=== PATIENT | female | born 1995 | race Asian ===

== ENCOUNTER 2018-09-04 14:45 | Outpatient (REF) | payer MEDICAID, SELFPAY | END 2018-09-04 15:05 | LOC: LBN 14:45 | PROVIDERS: PCP Family Medicine; Visit Provider Obstetrics & Gynecology | DX: R30.0 Dysuria (principal) | CPT/HCPCS: 87077; 87086 ==

== ENCOUNTER 2018-09-22 09:21 | Outpatient (REF) | payer MEDICAID, SELFPAY ==
--- NOTE | 2018-09-22 08:00 | PAPFT_PTH ---
PATIENT: Camille Arroyo LOC: [facility] U#:[id number] AGE/SX: 23/F ROOM: RE09/22/[address]: Sadia Warner : 1995 BED: DIS: 09/22/2018 SPEC #: [id number] RECD: 09/22/18 17:48 STATUS: BRANNON REQ #: [id number] COOPER: 09/22/18 08:[address]: Sadia Warner [facility] Cytology RECD BY: Deyanira Lindo Tissues: 1 - CX/ENDOCX FOR PAP SMEARS Procedures: PAP THIN PREP/UVM Screening Comments: [id number] (CHLAMYDIA/GC) (UNSATISFACTORY FOR EVALUATION)
[2018-09-23 18:03] LABS: Tissue Transglutaminase Ab IgA <1.2 U/mL; Tissue Transglutaminase Ab IgG 2.3 U/mL
[2018-09-25 13:57] LABS: Chlamydia Result Negative; GC Result Negative; Specimen Description SEE COMMENTS
== END 2018-09-22 09:41 ==
LOC: NCHCN 09:21
PROVIDERS: PCP Family Medicine; Visit Provider Family Medicine
DX: R11.0 Nausea (principal); Z11.3 Encounter for screening for infections with a predominantly sexual mode of transmission; Z12.4 Encounter for screening for malignant neoplasm of cervix; Z00.00 Encounter for general adult medical examination without abnormal findings
CPT/HCPCS: 87491; 87591; 88142; 83516

== ENCOUNTER 2018-10-17 14:50 | Outpatient (REF) | payer MEDICAID, SELFPAY ==
[2018-10-17 18:44] LABS: Bilirubin Negative (Negative); Blood Negative (Negative); Clarity Clear; Glucose Negative (Negative); Ketones Negative (Negative); Leukocyte Esterase Negative (Negative); Nitrite Negative (Negative); Specific Gravity 1.015 (1.005-1.025); Urobilinogen 0.2 EU/dL (Up TO 0.2)
== END 2018-10-17 15:10 ==
LOC: NCHCN 14:50
PROVIDERS: PCP Family Medicine; Visit Provider Nurse Practitioner Family
DX: R30.0 Dysuria (principal)
CPT/HCPCS: 81003; 87086

== ENCOUNTER 2018-12-13 16:03 | Outpatient (REF) | payer MEDICAID, SELFPAY ==
[2018-12-15 13:45] LABS: Chlamydia Result Negative; GC Result Negative; Specimen Description URINE
== END 2018-12-13 16:23 ==
LOC: LBN 16:03
PROVIDERS: PCP Family Medicine; Visit Provider Obstetrics & Gynecology Gynecology
DX: R10.2 Pelvic and perineal pain (principal)
CPT/HCPCS: 87491; 87591

== ENCOUNTER 2019-02-06 11:30 | Outpatient (CLI) | payer MEDICAID, SELFPAY ==
[2019-02-07 10:59] LABS: HIV-1/2 Ag & Ab Screen Negative (NEGAT)
[2019-02-07 12:14] LABS: Syphilis Serology (RPR) Negative (Negative)
== END 2019-02-06 11:50 ==
PROVIDERS: PCP Family Medicine; Visit Provider Obstetrics & Gynecology Gynecology
DX: Z11.3 Encounter for screening for infections with a predominantly sexual mode of transmission (principal); Z11.4 Encounter for screening for human immunodeficiency virus [HIV]
CPT/HCPCS: 36415; 87389; 87491; 87591; 86592

== ENCOUNTER 2019-03-05 01:47 | Outpatient (CLI) | payer MEDICAID, SELFPAY ==
--- NOTE | 2019-03-05 09:45 | DI.US_ITS ---
SYMPTOM/DIAGNOSIS: LLQ PAIN, R10.32 PELVIC ULTRASOUND: Transabdominal and transvaginal examination was performed. The uterus measures 6.3 x 3.5 x 5.1 cm. The uterus is retroverted. No myometrial mass is seen. The endometrial stripe is within normal limits at 0.4 cm. There is an intrauterine device which lies within the lower uterine segment and cervical region. The ovaries are normal in size. There is normal blood flow to the ovaries. No evidence of torsion is present. There are follicular cysts seen bilaterally. There is a small amount of free fluid in the pelvis. The kidneys show no evidence of hydronephrosis. IMPRESSION: Intrauterine device appears low lying. It lies within the lower uterine segment and cervical region of the canal.
== END 2019-03-05 02:07 ==
PROVIDERS: PCP Family Medicine; Visit Provider Obstetrics & Gynecology Gynecology
DX: R10.32 Left lower quadrant pain (principal); Z97.5 Presence of (intrauterine) contraceptive device
CPT/HCPCS: 76830; 76856

== ENCOUNTER 2019-04-28 11:32 | Emergency (ER) | payer MEDICAID, SELFPAY ==
[2019-04-28 11:35] VITALS: BP 105/52; PULSE 75; RESP 16; TEMP 36.6; O2SAT 100
--- NOTE | 2019-04-28 13:05 | W.ED.GENAD ---
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 Clinical Impression: IUD complication, Pelvic pain Primary Care Provider: Sadia Warner ED Provider: Marlene Bautista Home Meds and New Rx's Prescriptions: New ondansetron HCl [Zofran] 4 mg tablet 4 mg PO Q6H PRN (Reason: nausea and vomiting) Qty: 6 RF: 0 Continued ibuprofen 600 mg tablet 600 mg PO QID PRN (Reason: pain) Qty: 45 RF: 1 Josefina 14 mcg/24 hour (3 years) intrauterine device 1 insert IY ONCE Qty: 1 RF: 0 epinephrine 0.3 MG/SYR auto-injector 0.3 mg IJ PRN PRNRF: 0 acetaminophen [Tylenol] 325 MG tablet 650 mg PO PRN PRNRF: 0 ibuprofen [Advil Liqui-Gel] 200 MG capsule 400 mg PO PRN PRNRF: 0 Discharge Instructions Instructions: Intrauterine Device (GEN), Pelvic Pain in Women (ED) Additional Instructions: Alternate Tylenol and Motrin as needed and directed for pain. Take the nausea medicine as needed and directed for nausea or vomiting. Call women's wellness on Tuesday to schedule a follow-up appointment for reevaluation. Return to the emergency department if you develop any worsening or new concerning symptoms such as fever or increasing pain. Discharge Data Discharge Date/Time-TO BE ENTERED AT DEPARTURE: 04/28/19 15:46 Discharge Physician: Marlene Bautista Medical Decision Making 23-year-old female with no significant past mental history who had an IUD removed and a new one replaced yesterday who presents with sharp abdominal pain and nausea. She started her menses yesterday. Her abdomen is soft and nontender. Speculum exam reveals IUD strings within cervix. She has some minimal bleeding consistent with her menses. There appears to be minimal ecchymosis to cervix at 3:00. No adnexal mass or tenderness. Urine preg negative. Urinalysis negative. Case discussed with OB on-call Dr. Liang and states that patient's pelvic pain could be expected likely due to the tenaculum instrument used during the IUD removal which would be consistent with the ecchymosis noted to cervix. Agrees with plan to continue Motrin every 6 hours, pelvic rest and to follow-up with OB on Tuesday. As patient had normal vital signs, appeared nontoxic, and soft nontender abdomen, did not see an indication for labs or imaging at this time and she was agreeable peer Patient admitted to some lightheadedness but states she had not eaten all day. She was given crackers, fluids, Zofran and Motrin felt much better and was requesting to go home. Patient requested a work note for this evening. She was advised to return here if she develops any fevers, worsening pain. Medical Records Medical records reviewed: Yes I reviewed the patient's medical records. Lab Data Lab results reviewed: Yes I reviewed the patient's lab results. Laboratory Tests Range/Units 04/28/19 13:17 Urine Color (Yellow) Yellow Urine Clarity (Clear) Clear Urine pH (5-8) 7.0 Ur Specific [place] (1.005-1.025) 1.020 Urine Protein (Negative) mg/dL Negative Urine Ketones (Negative) mg/dL Negative Urine Blood (Negative) Negative Urine Nitrite (Negative) Negative Urine Bilirubin (Negative) Negative Urine Urobilinogen (Up TO 0.2) EU/dL 0.2 Ur Leukocyte Esterase (Negative) Negative Urine Glucose (Negative) mg/dL Negative HPI General Mode of arrival: ambulatory. Date/Time Provider Initiated Documentation: 04/28/19 11:41. Limitations to Documentation: no limitations. Information obtained by: patient. HPI Narrative: Patient is a 23-year-old female who presents with lower pelvic pain, nausea and lightheadedness since yesterday since her new IUD was placed. She states she had a routine ultrasound done a few months ago for ovarian pain and it was noted that her IUD was out of place. She states women's wellness remove this IUD yesterday and replaced a new one. She states since then she has had sharp lower pelvic pain. She states she also is currently on her menses and that can sometimes cause nausea lightheadedness but not this degree of pain. She denies any fever or urinary symptoms. Related Data Home Medications Medication Instructions Recorded Confirmed epinephrine 0.3 mg IJ PRN PRN 11/30/13 04/28/19 acetaminophen [Tylenol] 650 mg PO PRN PRN 10/25/16 04/28/19 ibuprofen [Advil Liqui-Gel] 400 mg PO PRN PRN 10/25/16 04/28/19 ibuprofen 600 mg tablet 600 mg PO QID PRN #45 tab 10/18/18 04/28/19 levonorgestrel 14 mcg/24 hrs (3 1 insert IY ONCE #1 each 10/21/18 04/28/19 yrs) 13.5 mg intrauterine device ondansetron HCl [Zofran] 4 mg PO Q6H PRN #6 tab 04/28/19 Previous Rx's Medication Instructions Recorded ibuprofen 600 mg tablet 600 mg PO QID PRN #45 tab 10/18/18 levonorgestrel 14 mcg/24 hrs (3 1 insert IY ONCE #1 each 10/21/18 yrs) 13.5 mg intrauterine device ondansetron HCl [Zofran] 4 mg PO Q6H PRN #6 tab 04/28/19 Allergies Allergy/AdvReac Type Severity Reaction Status Date / Time venom-honey bee Allergy Intermediate Swelling/Ed Unverified 04/28/19 11:39 [bee venom (honey bee)] anastacio perfume Allergy Mild Unverified 04/28/19 11:39 Penicillins AdvReac Intermediate GI Unverified 04/28/19 11:39 upset/Headache DUST Allergy Mild Uncoded 04/28/19 11:39 FOOD DYE Allergy Mild Uncoded 04/28/19 11:39 General 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 ALEC: 3 Review of Systems Review of Systems All systems reviewed & are unremarkable except as noted in HPI and below Constitutional Reports as per HPI, Denies chills and Denies fever(s) Eyes Denies blurry vision ENT Denies dizziness, Denies sore throat and Denies throat swelling Cardiovascular Denies chest pain and Denies dyspnea Respiratory Denies cough and Denies dyspnea Gastrointestinal Reports abdominal pain, Denies diarrhea, Reports nausea and Denies vomiting Genitourinary Denies hematuria, Denies dysuria and Reports pelvic pain Musculoskeletal Denies back pain and Denies numbness Integumentary/Breasts Denies lesions and Denies rash Neurologic Denies dizziness, Denies focal weakness and Denies numbness Allergic/Immunologic Denies throat swelling PFSH Medical History Chronic bladder pain (Chronic) IUD (intrauterine device) in place (Chronic) Pelvic pain (Chronic) Social History (Reviewed 04/28/19 @ 15:39 by ABELARDO Treviño Smoking/Tobacco Use Status: Never Alcohol Intake: never Drug use: Occasionally Substance use type: marijuana Adopted: Yes Household members: family and other Details: Currently between jobs living with her family. Mother is named Lenora. 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 Sexually active: Yes Do you feel safe at home: Yes Do you feel safe in your relationship?: Yes Female Reproductive History Menstrual control method: progestin IUCD (Josefina inserted Lot #[id number]) Exam Const General: cooperative, healthy appearing and no acute distress HENMT Head: normal to inspection Face and sinus: normal facial exam Eyes General: appearance normal, both eyes and all related structures Pupils: PERRL EOM: EOM intact bilaterally Neck Neck: normal visual inspection and No submandibular swelling Lymphatic: no lymphadenopathy noted Chest Chest: normal inspection of the chest and no tenderness Resp Effort & Inspection: normal respiratory effort and able to speak in complete sentences Auscultation: clear to auscultation bilaterally Cardio Rate: regular rate Rhythm: regular rhythm GI Inspection: normal to inspection Palpation: soft, not firm, not rigid and nontender Auscultation: normal bowel sounds Skin General skin exam: no rashes or lesions noted Neuro General: alert, awake and oriented x3 Cognition: normal cognition Speech: speech normal Motor: muscle tone normal throughout Sensory Exam: no sensory deficits noted Extrem General: normal to inspection, full ROM, normal capillary refill, no calf tenderness bilaterally and no edema Psych Appearance: grossly normal Mental Status: mental status grossly normal Speech and Movement: speech and movement normal Affect: normal affect Course Vital Signs Temperature 97.9 F 04/28/19 11:35 Pulse 756 H 04/28/19 11:35 Respiratory Rate 16 04/28/19 11:35 Blood Pressure 105/52 L 04/28/19 11:35 Pulse Oximetry 100 04/28/19 11:35 Temperature 97.9 F 04/28/19 11:35 Temperature Source Skin 04/28/19 11:35 Pulse 756 H 04/28/19 11:35 Respiratory Rate 16 04/28/19 11:35 Respiratory Effort Non-Labored 04/28/19 11:37 Blood Pressure 105/52 L 04/28/19 11:35 Pulse Oximetry 100 04/28/19 11:35 Pain Level 9 04/28/19 11:40
[2019-04-28 13:26] LABS: Bilirubin Negative (Negative); Blood Negative (Negative); Clarity Clear (Clear); Glucose Negative (Negative); Ketones Negative (Negative); Leukocyte Esterase Negative (Negative); Nitrite Negative (Negative); Urobilinogen 0.2 EU/dL (Up TO 0.2)
--- NOTE | 2019-04-28 14:18 | NUR.NOTE ---
Nursing Note: pt tolerated pelvic exam well. gluten free meal tray ordered for patient.
[2019-04-28] MEDS: Ondansetron O.D.T. 4 MG TABEF PO (14:40)
[2019-04-28] MEDS: Ibuprofen 600 MG TAB PO (14:40)
[2019-04-28 15:10] VITALS: BP 107/62; PULSE 71; RESP 16; O2SAT 100
--- NOTE | 2019-04-28 15:11 | NUR.NOTE ---
Nursing Note: pt able to eat and drink without difficulty. tolerating PO intake well
== END 2019-04-28 15:46 | disposition home or self-care (01) ==
PROVIDERS: Emergency Provider Physician Assistant; PCP Family Medicine
DX: R10.2 Pelvic and perineal pain (principal); R11.0 Nausea; T83.84XA Pain due to genitourinary prosthetic devices, implants and grafts, initial encounter; Y84.8 Other medical procedures as the cause of abnormal reaction of the patient, or of later complication, without mention of misadventure at the time of the procedure
CPT/HCPCS: 81025; 99284; 81003

== ENCOUNTER 2019-05-04 10:48 | Outpatient (REF) | payer MEDICAID, SELFPAY ==
--- NOTE | 2019-05-04 09:50 | PAPFT_PTH ---
PATIENT: Camille Arroyo LOC: [facility] U#:[id number] AGE/SX: 23/F ROOM: RE05/04/[address]: Kelli Martins NP : 1995 BED: DIS: 05/04/2019 SPEC #: [id number] RECD: 05/04/19 12:51 STATUS: BRANNON HUGHES #: [id number] COOPER: 05/04/19 09:[address]: Kelli Martins NP DEPT: [facility] Cytology RECD BY: Deyanira Lindo ENTERED: 05/04/19 12:51 SP TYPE: PAPFT JOANIE DR: Sadia Warner Tissues: 1 - CX/ENDOCX FOR PAP SMEARS Procedures: PAP THIN PREP/UVM Screening Comments: [id number]
== END 2019-05-04 11:08 ==
LOC: LBN 10:48
PROVIDERS: PCP Family Medicine; Visit Provider Nurse Practitioner Women's Health
DX: Z12.4 Encounter for screening for malignant neoplasm of cervix (principal)
CPT/HCPCS: 88142

== ENCOUNTER 2019-12-10 08:59 | Outpatient (CLI) | payer BC, SELFPAY ==
[2019-12-10 12:16] LABS: HCG Quant, Pregnancy 1846 mIU/mL (1-3)
[2019-12-11 12:21] LABS: Albumin 62.2 % (55.8-66.1); Total Protein 7.4 g/dL (6.3-8.2)
== END 2019-12-10 09:19 ==
PROVIDERS: PCP Family Medicine; Visit Provider Obstetrics & Gynecology Gynecology
DX: N91.2 Amenorrhea, unspecified (principal)
CPT/HCPCS: 36415; 84165; 84702

== ENCOUNTER 2020-01-07 13:20 | Outpatient (REF) | payer BC, SELFPAY ==
[2020-01-07 14:23] LABS: *AMPHETAMINES SCREEN URINE Negative (Negative); *BARBITURATES SCREEN URINE Negative (Negative); *BENZODIAZEPINES SCREEN URINE Negative (Negative); Cannabinoids THC Negative (Negative); Cocaine Screen,Urine Negative (Negative); METHADONE URINE SCREEN Negative (Negative); OPIATES URINE SCREEN Negative (Negative)
[2020-01-07 14:27] LABS: Tricyclic Antidepressants Negative (Negative)
[2020-01-09 14:57] LABS: Chlamydia Result Negative (Negative); GC Result Negative (Negative)
[2020-01-12 23:17] LABS: Buprenorphine Negative; Norbuprenorphine Negative
== END 2020-01-07 13:40 ==
LOC: LBN 13:20
PROVIDERS: PCP Family Medicine; Visit Provider Advanced Practice Midwife
DX: Z34.91 Encounter for supervision of normal pregnancy, unspecified, first trimester (principal); Z11.3 Encounter for screening for infections with a predominantly sexual mode of transmission
CPT/HCPCS: 80307; 87491; 87591; 87086

== ENCOUNTER 2020-01-18 02:06 | Outpatient (CLI) | payer BC, SELFPAY ==
[2020-01-18 11:38] LABS: Abs Immature Grans 0.13 k/cumm (0.0-0.09); Absolute Eosinophil Count 0.29 k/cumm (0.0-0.7); Absolute Lymphocyte Count 2.05 k/cumm (1.2-3.4); Absolute Monocyte Count 0.86 k/cumm (0.11-0.7); Absolute Neutrophil Count 9.44 k/cumm (1.2-6.7); Basophils % 0.2; Eosinophils % 2.3; HGB 11.8 g/dL (12.0-15.5); Mean Corp. HGB Concentration 31.9 g/dL (32.0-36.0); Mean Corpuscular Hemoglobin 21.9 pg (27.0-33.0); Mean Corpuscular Volume 68.5 fL (80-95); Mean Platelet Volume 10.1 fL (8.0-11.0); Monocytes % 6.7; Neutrophils % 73.8; Platelet Count 441 x1000/uL (130-400); RBC Distribution Width 15.6 % (11.7-14.6); White Blood Cell Count 12.79 k/cumm (4.4-10.8)
[2020-01-18 11:40] LABS: Absolute Basophil Count 0.03 k/cumm (0.0-0.2)
[2020-01-18 11:51] LABS: Anisocytosis 1+; Diff Comment RBC Morph Reviewed
[2020-01-18 11:52] LABS: Microcytosis 2+; Poikilocytes 1+; Polychromasia Present
[2020-01-18 12:58] LABS: TSH (W/Ref FT4) 0.36 uIU/mL (0.36-3.74)
[2020-01-19 13:49] LABS: Syphilis Total Ab w/Reflex Nonreactive (Nonreactive)
[2020-01-21 10:59] LABS: Hepatitis B Surface Ag Negative (Negative)
[2020-01-21 11:01] LABS: HIV-1/2 Ag & Ab Screen Negative (Negative)
[2020-01-21 11:21] LABS: Hepatitis C Ab w Rflx HCV PCR Negative (Negative)
[2020-01-21 15:39] LABS: Hemoglobinopathy Interpretat (See Note)
[2020-01-22 13:35] LABS: Rubella IgG Ab (UVM) Positive (See Note); Varicella IgG Antibody Positive (See Note)
== END 2020-01-18 02:26 ==
PROVIDERS: Obstetrics & Gynecology Gynecology; PCP Family Medicine; Visit Provider Advanced Practice Midwife
DX: Z34.91 Encounter for supervision of normal pregnancy, unspecified, first trimester (principal); Z11.4 Encounter for screening for human immunodeficiency virus [HIV]; Z11.59 Encounter for screening for other viral diseases; Z01.84 Encounter for antibody response examination
CPT/HCPCS: 36415; 86787; 86803; 86850; 86900; 86901; 87340; 87389; 83020; 84443; 85025; 86762; 86780

== ENCOUNTER 2020-03-10 01:21 | Outpatient (CLI) | payer BC, SELFPAY ==
--- NOTE | 2020-03-10 07:00 | DI.US_ITS ---
EXAM: US OB 2-3 TRIMESTER W MOD CLINICAL HISTORY: 18 wk anatomy survey,Z3A.13. TECHNIQUE: Transabdominal obstetrical ultrasound performed. COMPARISON: No exams were available for comparison FINDINGS: Transabdominal obstetrical ultrasound performed. FINDINGS: Number of fetuses: One. position: Vertex. heart rate: 150 bpm. Placental grade: 2 Placental location: Posterior. No evidence of previa. BIOMETRIC DATA: BPD: Could not be measured HC: Could not be measured AC: 137 millimeters, 19+ 1 weeks FL: 28 millimeters, 18+ 4 weeks. Cisterna Magna: Cerebellum: EFW: Could not be determined Composite Age: 18+ 6 weeks EDC by US: 05 August 2020 Amniotic fluid : Amount of fluid is within normal limits. ANATOMICAL SURVEY: Four-chambered heart: Unremarkable. LVOT: Unremarkable. RVOT: Not well seen. Left-sided stomach: Unremarkable. urinary bladder: Unremarkable. Bilateral kidneys: Unremarkable. Three-vessel cord: Unremarkable. Cord insertion: Unremarkable. Umbilical artery velocity: Unremarkable. Posterior fossa:Not well seen. ventricles: Not well seen. nose: Not well seen lips: Not well seen palate: Unremarkable. spine: Unremarkable. Two arms and two legs: Unremarkable. IMPRESSION: 1. Single live intrauterine gestation as above. 2. The face, brain and heart were suboptimally visualized. The patient is scheduled to return 03/17/2020 for re-evaluation of these areas. DATA REPOSITORY:
== END 2020-03-10 01:41 ==
PROVIDERS: PCP Family Medicine; Visit Provider Advanced Practice Midwife
DX: Z34.92 Encounter for supervision of normal pregnancy, unspecified, second trimester (principal); Z3A.18 18 weeks gestation of pregnancy
CPT/HCPCS: 76805

== ENCOUNTER 2020-03-10 10:30 | Outpatient (CLI) | payer BC, SELFPAY ==
[2020-03-10 10:59] LABS: Kit/Specimen SENT
[2020-03-12 14:06] LABS: Specimen WB Whole Blood
[2020-03-14 14:51] LABS: Result Summary NEGATIVE; Specimen WB Whole Blood
== END 2020-03-10 10:50 ==
PROVIDERS: Advanced Practice Midwife; PCP Family Medicine; Visit Provider Psychiatry & Neurology Psychiatry
DX: Z34.92 Encounter for supervision of normal pregnancy, unspecified, second trimester (principal); Z36.89 Encounter for other specified antenatal screening; Z3A.18 18 weeks gestation of pregnancy
CPT/HCPCS: 36415; 81329; 81220

== ENCOUNTER 2020-03-10 18:19 | Outpatient (REF) | payer BC, SELFPAY ==
[2020-03-12 08:57] LABS: Chlamydia Result Negative (Negative); GC Result Negative (Negative)
== END 2020-03-10 18:39 ==
LOC: LBN 18:19
PROVIDERS: PCP Family Medicine; Visit Provider Obstetrics & Gynecology
DX: N89.8 Other specified noninflammatory disorders of vagina (principal); Z11.3 Encounter for screening for infections with a predominantly sexual mode of transmission
CPT/HCPCS: 87491; 87591; 87480; 87510; 87660

== ENCOUNTER 2020-03-17 07:24 | Outpatient (CLI) | payer BC, SELFPAY ==
--- NOTE | 2020-03-17 | DI.US_ITS ---
EXAM: US OB F/U FACIAL/LVOT/RVOT CLINICAL HISTORY: F/U SURVEY. COMPARISON: US US OB 2-3 TRIMESTER W MOD from 03/10/2020 TECHNIQUE: Transabdominal Transvaginal first trimester obstetrical ultrasound performed. FINDINGS: There is a single living intrauterine gestation. The estimated gestational age is 18 weeks 6 days. The fetus is in the cephalic presentation. heart rate is 175 beats per minute. The left and r ight ventricular outflow tracts were visualized and are unremarkable. Posterior fossa and ventricles are unremarkable. The palate, nose and lips are unremarkable. IMPRESSION: Single live intrauterine gestation as above. DATA REPOSITORY:
== END 2020-03-17 07:44 ==
PROVIDERS: PCP Family Medicine; Visit Provider Advanced Practice Midwife
DX: Z34.92 Encounter for supervision of normal pregnancy, unspecified, second trimester (principal); Z36.2 Encounter for other antenatal screening follow-up; Z3A.18 18 weeks gestation of pregnancy
CPT/HCPCS: 76815

== ENCOUNTER 2020-04-14 12:46 | Outpatient (REF) | payer BC, SELFPAY ==
[2020-04-18 13:06] LABS: AFP 90.2 ng/mL; Calculated age at EDD 24 years; Cigarette smoking status non-Smoker; GA used in risk estimate Dates estimate; IVF Pregnancy No; Initial or repeat testing Initial testing; Insulin dependent diabetes No; Maternal Weight 191 lbs; Number of Fetuses 1; Physician Phone Number 802-748-7300; Prev Pregnancy w/NTD No; RECOMMENDED FOLLOW UP None.; Results Summary Normal risk
== END 2020-04-14 13:06 ==
LOC: LBN 12:46
PROVIDERS: PCP Family Medicine; Visit Provider Obstetrics & Gynecology Gynecology
DX: Z34.90 Encounter for supervision of normal pregnancy, unspecified, unspecified trimester (principal)
CPT/HCPCS: 82105

== ENCOUNTER 2020-05-19 16:09 | Outpatient (REF) | payer MEDICAID, SELFPAY | END 2020-05-19 16:29 | LOC: NCHCN 16:09 | PROVIDERS: PCP Family Medicine; Visit Provider Nurse Practitioner Family | DX: Z20.828 Contact with and (suspected) exposure to other viral communicable diseases (principal); Z53.8 Procedure and treatment not carried out for other reasons | CPT/HCPCS: U0003 ==

== ENCOUNTER 2020-05-30 03:42 | Outpatient (CLI) | payer MEDICAID, SELFPAY ==
[2020-05-30 09:44] LABS: HCT 35.9 % (36.0-46.0); MCH 22.2 pg (27.0-33.0); MCHC 30.6 % (32.0-36.0); MCV 72.4 fL (80-95); MPV 9.7 fL (8.0-11.0); Platelet Count 345 10^3/uL (130-400); RBC 4.96 10^6/uL (3.93-5.22); RDW 15.6 % (11.7-14.6); RDW-SD 39.8 fL; WBC 11.13 10^3/uL (4.4-10.8)
[2020-05-30 09:49] LABS: Glucose,1 Hr (Glucola) 205 mg/dL (80-140)
== END 2020-05-30 04:02 ==
PROVIDERS: PCP Family Medicine; Visit Provider Obstetrics & Gynecology Gynecology
DX: Z34.90 Encounter for supervision of normal pregnancy, unspecified, unspecified trimester (principal); Z13.1 Encounter for screening for diabetes mellitus
CPT/HCPCS: 36415; 82950; 85027

== ENCOUNTER 2020-06-04 02:07 | Outpatient (CLI) | payer MEDICAID, SELFPAY ==
[2020-06-04 10:14] LABS: Glucose 1 Hour 181 mg/dL
[2020-06-04 12:16] LABS: Glucose 3 Hour 114 mg/dL
== END 2020-06-04 02:27 ==
PROVIDERS: Obstetrics & Gynecology Gynecology; PCP Family Medicine; Visit Provider Advanced Practice Midwife
DX: R73.09 Other abnormal glucose (principal)
CPT/HCPCS: 36410; 82951

== ENCOUNTER 2020-06-30 01:47 | Outpatient (CLI) | payer MEDICAID, SELFPAY ==
--- NOTE | 2020-07-01 12:30 | NS.NUTBLAN_ITS ---
Camille was referred to me for Medical Nutrition Therapy for Gestational DM. She is 25 year old female, 34 weeks with elevated fasting levels ranging from 103-113 mg/dl, post prandial levels range from 130-142 mg/dl. She has gained total of 27 lbs. BMI of 29 prior to , elevated weight gain during in view of overweight status prepregnancy. She reports eating twice daily, mostly well balanced meals. Does not eat convenience foods or drink high sugar beverages. We talked about ways she can reduce her BS without medication, including counting her carbohydrates and walking 15 min after meals. She would like to avoid insulin and states she will follow meal plan provided and walk daily at least twice for 15 minutes. Provided Camille with written material on meal plans and information on GDM. Provided her with my contact information for follow up. Plan: will meet with her at next [facility] visit.
== END 2020-06-30 02:07 ==
PROVIDERS: PCP Family Medicine; Visit Provider Dietitian, Registered
DX: O24.410 Gestational diabetes mellitus in pregnancy, diet controlled (principal); Z71.3 Dietary counseling and surveillance
CPT/HCPCS: 97802

== ENCOUNTER 2020-07-15 18:21 | Outpatient (REF) | payer MEDICAID, SELFPAY ==
[2020-07-15 18:58] LABS: *AMPHETAMINES SCREEN URINE Negative (Negative); *BARBITURATES SCREEN URINE Negative (Negative); *BENZODIAZEPINES SCREEN URINE Negative (Negative); Cannabinoids THC Negative (Negative); Cocaine Screen,Urine Negative (Negative); METHADONE URINE SCREEN Negative (Negative); OPIATES URINE SCREEN Negative (Negative)
[2020-07-15 19:23] LABS: Tricyclic Antidepressants Negative (Negative)
[2020-07-22 09:10] LABS: Buprenorphine Negative
== END 2020-07-15 18:41 ==
LOC: LBN 18:21
PROVIDERS: PCP Family Medicine; Visit Provider Obstetrics & Gynecology Gynecology
DX: Z34.93 Encounter for supervision of normal pregnancy, unspecified, third trimester (principal); Z3A.36 36 weeks gestation of pregnancy; Z36.85 Encounter for antenatal screening for Streptococcus B
CPT/HCPCS: 80307; 87081

== ENCOUNTER 2020-07-17 08:12 | Outpatient (CLI) | payer MEDICAID, SELFPAY ==
[2020-07-17 10:09] VITALS: BP 104/59; PULSE 93; TEMP 36.5
--- NOTE | 2020-07-17 11:44 | W.OBNST ---
Date of service: 07/17/20 Time of Service: 11:44 NST Evaluation Reason for NST Reasons for Nonstress Test: GDM-INSULIN Gestational Age Gestational Age in Weeks and Days: 36 Weeks and 2Days Test and Monitor Explained Test/Monitor Explained: Test Explained, Monitor Explained and Patient Verbalized Understanding Vital Signs Blood Pressure: 104/59 Pulse: 93 Temperature: 97.7 F NST Information Date on Monitor: 07/17/20 Time on Monitor: 10:08 Date off Monitor: 07/17/20 Time off Monitor: 10:42 Total Time on Monitor: 34 NST Interventions: PO Hydration NST Evaluation Patient States Movement: Present FHR Baseline: 145 Variability: Moderate 6-25 bpm Accelerations: 15x15 Decelerations: None NST Results: Reactive Note NST Note Note: Pt's fasting CB. Reactive NST. NST Reviewed and Verified by: Izzy Holguin
[2020-07-17 11:45] VITALS: BP 104/59; PULSE 93; TEMP 36.5
== END 2020-07-17 10:40 | disposition home or self-care (01) ==
LOC: BCD 08:15 → OBS 10:01
PROVIDERS: PCP Family Medicine; Visit Provider Obstetrics & Gynecology Gynecology
DX: O24.414 Gestational diabetes mellitus in pregnancy, insulin controlled (principal); Z79.4 Long term (current) use of insulin; Z3A.36 36 weeks gestation of pregnancy
CPT/HCPCS: 59025

== ENCOUNTER 2020-07-21 09:26 | Outpatient (CLI) | payer MEDICAID, SELFPAY ==
[2020-07-21 11:43] VITALS: BP 119/67; PULSE 92; TEMP 36.8
[2020-07-21 11:45] VITALS: BP 119/67; PULSE 92
--- NOTE | 2020-07-21 14:29 | W.OBNST ---
Date of service: 07/21/20 Time of Service: 14:29 NST Evaluation Reason for NST Reasons for Nonstress Test: OTHER, SEE COMMENT Reason for NST Other: Hx Beta thalassemia, elevated glucola Gestational Age Gestational Age in Weeks and Days: 36 Weeks and 6Days Test and Monitor Explained Test/Monitor Explained: Test Explained, Monitor Explained and Patient Verbalized Understanding Vital Signs Blood Pressure: 119/67 Pulse: 92 Temperature: 98.2 F Urine Results Urine Protein: Negative Urine Ketones: Negative Urine Glucose: Negative Urine Blood: Negative NST Information Date on Monitor: 07/21/20 Time on Monitor: 11:37 Date off Monitor: 07/21/20 Time off Monitor: 12:27 Total Time on Monitor: 50 NST Interventions: PO Hydration Contraction Frequency: none NST Evaluation Patient States Movement: Present FHR Baseline: 145 Variability: Moderate 6-25 bpm Accelerations: 15x15 Decelerations: None NST Results: Reactive Note NST Note Note: Category 1 strip. NST Reviewed and Verified by: Qiana Walsh
[2020-07-21 14:31] VITALS: BP 119/67; PULSE 92; TEMP 36.8
== END 2020-07-21 12:30 | disposition home or self-care (01) ==
LOC: BCD 09:41 → OBS 10:01
PROVIDERS: PCP Family Medicine; Visit Provider Obstetrics & Gynecology
DX: O99.013 Anemia complicating pregnancy, third trimester (principal); O99.810 Abnormal glucose complicating pregnancy; D56.1 Beta thalassemia; Z3A.36 36 weeks gestation of pregnancy
CPT/HCPCS: 59025

== ENCOUNTER 2020-07-23 02:40 | Outpatient (CLI) | payer MEDICAID, SELFPAY ==
--- NOTE | 2020-07-23 07:30 | DI.US_ITS ---
EXAM: US OB TIAN WEIGHT CLINICAL HISTORY: Size and TIAN,Z34.90,GESTATIONAL DIABETES TECHNIQUE: Ultrasound performed using standard protocol. COMPARISON: US US OB F/U FACIAL/LVOT/RVOT from 03/17/2020 FINDINGS: Ob ultrasound was performed utilizing limited 3rd trimester protocol. biometry is consistent w ith gestational age of 37 weeks 2 days and an EDC of August 11. Estimated weight is 3175 grams which is at the 62 percentile for predicted gestational age. The placenta is anterior and fundal with no evidence of placenta previa. Amniotic fluid index is 16 and there is visually a normal quantity of amniotic fluid. Fetus is in cephalic presentation. heart rate is 168 BPM. IMPRESSION: DATA REPOSITORY:
== END 2020-07-23 03:00 ==
PROVIDERS: PCP Family Medicine; Visit Provider Obstetrics & Gynecology
DX: Z34.93 Encounter for supervision of normal pregnancy, unspecified, third trimester (principal); O24.419 Gestational diabetes mellitus in pregnancy, unspecified control
CPT/HCPCS: 76816

== ENCOUNTER 2020-07-24 09:02 | Outpatient (CLI) | payer MEDICAID, SELFPAY ==
[2020-07-24 11:37] VITALS: BP 120/67; PULSE 105; TEMP 36.5
[2020-07-24 12:06] VITALS: BP 129/72; PULSE 101
--- NOTE | 2020-07-31 19:31 | W.OBNST ---
Date of service: 07/31/20 Time of Service: 19:34 NST Evaluation Reason for NST Reasons for Nonstress Test: GDM-INSULIN Gestational Age Gestational Age in Weeks and Days: 38 Weeks and 2Days Test and Monitor Explained Test/Monitor Explained: Test Explained, Monitor Explained and Patient Verbalized Understanding Vital Signs Blood Pressure: 120/67 Pulse: 105 Temperature: 97.7 F NST Information Date on Monitor: 07/24/20 Time on Monitor: 11:37 Date off Monitor: 07/24/20 Time off Monitor: 12:24 Total Time on Monitor: 47 NST Interventions: PO Hydration NST Evaluation Patient States Movement: Present FHR Baseline: 145 Variability: Moderate 6-25 bpm Accelerations: 15x15 Decelerations: None NST Results: Reactive Note NST Note Note: Patient reports continued elevation of fasting CBG. Will increase aspart insulin to 6 units at bedtime. Tentative plan for induction of labor at 39 weeks is progress she will be admitted on the evening of 08/05/2020 for cervical ripening. NST Reviewed and Verified by: Izzy Holguin
[2020-07-31 19:34] VITALS: BP 120/67; PULSE 105; TEMP 36.5
== END 2020-07-24 12:25 | disposition home or self-care (01) ==
LOC: BCD 09:10 → OBS 11:14
PROVIDERS: PCP Family Medicine; Visit Provider Obstetrics & Gynecology Gynecology
DX: O24.414 Gestational diabetes mellitus in pregnancy, insulin controlled (principal); Z79.4 Long term (current) use of insulin; Z3A.37 37 weeks gestation of pregnancy
CPT/HCPCS: 59025

== ENCOUNTER 2020-07-28 07:17 | Outpatient (CLI) | payer MEDICAID, SELFPAY ==
[2020-07-28 11:32] VITALS: BP 118/68; PULSE 100; TEMP 37.1
[2020-07-28 11:50] VITALS: BP 118/68; PULSE 100
[2020-09-16 15:22] VITALS: BP 118/68; PULSE 100; TEMP 37.1
--- NOTE | 2020-09-16 15:22 | W.OBNST ---
Date of service: 09/16/20 Time of Service: 15:22 NST Evaluation Reason for NST Reasons for Nonstress Test: GDM-INSULIN Gestational Age Gestational Age in Weeks and Days: 39 Weeks and 0Days Test and Monitor Explained Test/Monitor Explained: Test Explained, Monitor Explained and Patient Verbalized Understanding Vital Signs Blood Pressure: 118/68 Pulse: 100 Temperature: 98.8 F NST Information Date on Monitor: 07/28/20 Time on Monitor: 11:37 Date off Monitor: 07/28/20 Time off Monitor: 12:05 Total Time on Monitor: 28 NST Interventions: PO Hydration NST Evaluation Patient States Movement: Present Variability: Moderate 6-25 bpm Accelerations: 15x15 Decelerations: None NST Results: Reactive Note NST Note Note: Category 1 nonstress test NST Reviewed and Verified by: Qiana Walsh
== END 2020-07-28 12:05 | disposition home or self-care (01) ==
LOC: OBSERV 07:19 → OBS 11:30
PROVIDERS: PCP Family Medicine; Visit Provider Obstetrics & Gynecology
DX: O24.414 Gestational diabetes mellitus in pregnancy, insulin controlled (principal); Z79.4 Long term (current) use of insulin
CPT/HCPCS: 59025

== ENCOUNTER 2020-07-31 07:33 | Outpatient (CLI) | payer MEDICAID, SELFPAY ==
[2020-07-31 10:32] VITALS: BP 119/66; PULSE 90; TEMP 36.7
--- NOTE | 2020-07-31 19:35 | W.OBNST ---
Date of service: 07/31/20 Time of Service: 19:38 NST Evaluation Reason for NST Reasons for Nonstress Test: GDM-INSULIN Gestational Age Gestational Age in Weeks and Days: 38 Weeks and 2Days Test and Monitor Explained Test/Monitor Explained: Test Explained, Monitor Explained and Patient Verbalized Understanding Vital Signs Blood Pressure: 119/66 Pulse: 90 Temperature: 98.1 F NST Information Date on Monitor: 07/31/20 Time on Monitor: 10:39 Date off Monitor: 07/31/20 Time off Monitor: 11:35 Total Time on Monitor: 56 NST Interventions: PO Hydration NST Evaluation Patient States Movement: Present FHR Baseline: 145 Variability: Moderate 6-25 bpm Accelerations: 15x15 Decelerations: None NST Results: Reactive Note NST Note Note: Reactive NST. Patient reports continued variable fasting glucose levels. She was instructed to increase her aspart insulin to 10 units at bedtime. OB ultrasound performed 07/23/2020 shows EFW 3175 g (62th%tile) TIAN 16. Patient is scheduled for cervical ripening beginning 08/05/2020. We will have a repeat NST on 08/04/2020. NST Reviewed and Verified by: Izzy Holguin
[2020-07-31 19:38] VITALS: BP 119/66; PULSE 90; TEMP 36.7
--- NOTE | 2020-08-04 08:58 | W.OBNST ---
Date of service: 07/31/20 Time of Service: 08:58 NST Evaluation Reason for NST Reasons for Nonstress Test: GDM-INSULIN Gestational Age Gestational Age in Weeks and Days: 38 Weeks and 2Days Test and Monitor Explained Test/Monitor Explained: Test Explained, Monitor Explained and Patient Verbalized Understanding Vital Signs Blood Pressure: 119/66 Pulse: 90 Temperature: 98.1 F NST Information Date on Monitor: 07/31/20 Time on Monitor: 10:39 Date off Monitor: 07/31/20 Time off Monitor: 11:35 Total Time on Monitor: 56 NST Interventions: PO Hydration NST Evaluation Patient States Movement: Present FHR Baseline: 145 Variability: Moderate 6-25 bpm Accelerations: 15x15 Decelerations: None NST Results: Reactive Note NST Note NST Reviewed and Verified by: Esau Liang
[2020-08-04 08:59] VITALS: BP 119/66; PULSE 90; TEMP 36.7
== END 2020-07-31 11:50 | disposition home or self-care (01) ==
LOC: BCD 07:43 → OBS 09:56
PROVIDERS: PCP Family Medicine; Visit Provider Obstetrics & Gynecology Gynecology
DX: O24.414 Gestational diabetes mellitus in pregnancy, insulin controlled (principal); Z79.4 Long term (current) use of insulin; Z3A.38 38 weeks gestation of pregnancy
CPT/HCPCS: 59025

== ENCOUNTER 2020-08-04 07:42 | Outpatient (CLI) | payer MEDICAID, SELFPAY ==
[2020-08-04 10:39] VITALS: BP 127/70; PULSE 109
[2020-08-04 11:00] VITALS: BP 127/70; PULSE 109; TEMP 36.8
[2020-08-12 21:06] VITALS: BP 127/70; PULSE 109; TEMP 36.8
--- NOTE | 2020-08-12 21:06 | W.OBNST ---
Date of service: 08/12/20 Time of Service: 21:07 NST Evaluation Reason for NST Reasons for Nonstress Test: GDM-INSULIN Gestational Age Gestational Age in Weeks and Days: 39 Weeks and 0Days Test and Monitor Explained Test/Monitor Explained: Test Explained, Monitor Explained and Patient Verbalized Understanding Vital Signs Blood Pressure: 127/70 Pulse: 109 Temperature: 98.2 F Urine Results Urine Protein: Positive Urine Ketones: Negative Urine Glucose: Negative Urine Blood: Negative NST Information Date on Monitor: 08/04/20 Time on Monitor: 10:36 Date off Monitor: 08/04/20 Time off Monitor: 11:08 Total Time on Monitor: 32 NST Interventions: PO Hydration Contraction Frequency: none NST Evaluation Patient States Movement: Present FHR Baseline: 150 Variability: Moderate 6-25 bpm Accelerations: 15x15 Decelerations: None NST Results: Reactive Note NST Note Note: Patient continues with satisfactory glycemic control. Discussed plan for induction of labor in the near future. NST Reviewed and Verified by: Izzy Holguin
[2020-08-24 06:44] VITALS: BP 127/70; PULSE 109; TEMP 36.8
--- NOTE | 2020-08-24 06:44 | W.OBNST ---
Date of service: 08/04/20 Time of Service: 16:00 NST Evaluation Reason for NST Reasons for Nonstress Test: GDM-INSULIN Gestational Age Gestational Age in Weeks and Days: 39 Weeks and 0Days Test and Monitor Explained Test/Monitor Explained: Test Explained, Monitor Explained and Patient Verbalized Understanding Vital Signs Blood Pressure: 127/70 Pulse: 109 Temperature: 98.2 F Urine Results Urine Protein: Positive Urine Ketones: Negative Urine Glucose: Negative Urine Blood: Negative NST Information Date on Monitor: 08/04/20 Time on Monitor: 10:36 Date off Monitor: 08/04/20 Time off Monitor: 11:08 Total Time on Monitor: 32 NST Interventions: PO Hydration Contraction Frequency: none NST Evaluation Patient States Movement: Present FHR Baseline: 150 Variability: Moderate 6-25 bpm Accelerations: 15x15 Decelerations: None NST Results: Reactive Note NST Note NST Reviewed and Verified by: Esau Liang
== END 2020-08-04 11:10 | disposition home or self-care (01) ==
LOC: BCD 07:46 → OBS 10:34
PROVIDERS: PCP Family Medicine; Visit Provider Obstetrics & Gynecology Gynecology
DX: O24.414 Gestational diabetes mellitus in pregnancy, insulin controlled (principal); Z79.4 Long term (current) use of insulin; Z3A.38 38 weeks gestation of pregnancy
CPT/HCPCS: 59025

== ENCOUNTER 2020-08-05 14:59 | Inpatient (IN) | payer MEDICAID, SELFPAY ==
--- NOTE | 2020-08-05 14:46 | W.PM.HP.N ---
Date of service: 08/05/20 Assessment and Plan Assessment and plan (1) : Status: Acute Assessment and plan: Term , gestational diabetes. Labor induction to commence tonight with cervical ripening (2) Thalassemia: Status: Acute (3) Gestational diabetes: Status: Acute History of Present Illness History of Present Illness Chief Complaint: Labor induction Narrative: Patient presents to the center for induction of labor. She will have cervical ripening tonight followed by Pitocin augmentation tomorrow Review of Systems All systems reviewed & are unremarkable except as noted in HPI and below PFSH Medical History Chronic bladder pain Since 2016. Normal pelvic ultrasound. Multiple office evaluations for dysuria symptoms. Negative urine cultures. Urology consult suggested diagnosis of interstitial cystitis. 09/2018 pelvic pain symptoms increased after Mirena insertion. 10/21/2018 Mirena out Josefina inserted. GERD (gastroesophageal reflux disease) IUD (intrauterine device) in place Josefina and changed to Mirena IUD 01/2018. 2018 Mirena out Josefina reinserted attempt to decrease patient's bladder/pelvic pain. Removed ~ 11/2018. Patient desires 08/2019. IUD removed. Pelvic pain With associated bladder pain symptoms. Negative testing for STI's. Thalassemia 11/2019 MCV 68.5 with previous dx of thalasemia. 12/2019 Nl hemoglobin electrophoresis. 02/2020 Dr. Perez has been consulted regarding further w/u. Social History Smoking/Tobacco Use Status: Never Smoking risk assessment performed?: Yes Alcohol Intake: never Drug use: Occasionally Substance use type: marijuana Adopted: Yes Household members: family and other Details: NGUYEN- Brendan. [place]. 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 Sexually active: Yes Do you feel safe at home: Yes Do you feel safe in your relationship?: Yes Female Reproductive History Menstrual control method: progestin IUCD History History 1 Para 0 Hx # Term Pregnancies 0 Multiple births 0 Hx # Pregnancies 0 Ectopic pregnancies 0 AB induced 0 Hx Number of Living Children 0 AB spontaneous 0 Meds Home Medications and Allergies Home Medications Medication Instructions Recorded Confirmed Type ibuprofen 600 mg tablet 600 mg PO QID PRN #45 tab 10/18/18 07/15/20 Rx prenat.vits,jan,emp-drai-ynkvh 1 tab PO DAILY 12/31/19 07/15/20 History acetaminophen 325 mg tablet 650 mg PO ONCE PRN tab 03/10/20 07/15/20 History epinephrine 0.3 mg/0.3 mL 0.3 mg IM ONCE PRN each 03/10/20 07/15/20 History injection, auto-injector omeprazole 40 mg capsule,delayed 40 mg PO DAILY #60 cap 05/12/20 07/15/20 Rx release blood-glucose meter #1 ea 06/26/20 07/15/20 Rx pen needle, diabetic 31 gauge x #50 ea 07/10/20 07/15/20 Rx 3/16 blood sugar diagnostic #100 ea 07/17/20 07/17/20 Rx lancets 30 gauge #100 ea 07/17/20 07/17/20 Rx blood sugar diagnostic #100 ea 07/21/20 07/21/20 Rx insulin NPH isoph U-100 human 100 10 unit SUBCUT QPM #15 ml 07/31/20 07/31/20 Rx unit/mL (3 mL) subcutaneous pen polyethylene glycol 3350 17 17 g PO DAILY PRN #119 g 07/31/20 07/31/20 Rx gram/dose oral powder Allergies Allergy/AdvReac Type Severity Reaction Status Date / Time venom-honey bee Allergy Intermediate Swelling/Ed Verified 07/15/20 12:43 [bee venom (honey bee)] anastacio perfume Allergy Mild Verified 07/15/20 12:43 Penicillins AdvReac Intermediate GI Verified 07/15/20 12:43 upset/Headache DUST Allergy Mild Uncoded 07/15/20 12:43 FOOD DYE Allergy Mild Uncoded 07/15/20 12:43 COVID-19 Screening Have you,or household,traveled outside [place] in last 14 days?: No
[2020-08-05 18:11] VITALS: PULSE 106; RESP 16; TEMP 36.9; O2SAT 98
[2020-08-05 18:21] VITALS: BP 118/68; PULSE 106; RESP 16; TEMP 36.9; O2SAT 98
[2020-08-05] MEDS: Normal Saline Flush 10 ML SYR IVP (19:15)
[2020-08-05] MEDS: miSOPROStol 25 MCG TAB PO ×2 (19:34→23:42)
[2020-08-05 19:46] LABS: HCT 38.4 % (36.0-46.0); HGB 11.9 g/dL (11.2-15.7); MCH 22.2 pg (27.0-33.0); MCV 71.8 fL (80-95); Platelet Count 332 10^3/uL (130-400); RBC 5.35 10^6/uL (3.93-5.22); RDW 15.3 % (11.7-14.6); RDW-SD 38.5 fL; WBC 10.86 10^3/uL (4.4-10.8)
[2020-08-05] MEDS: Insulin NPH-Human 300 UNITS/3 ML PEN 6 UNIT SC (22:36)
[2020-08-06] VITALS (39 sets, daily range): BP systolic 106–138; BP diastolic 55–83; PULSE 74–95; RESP 20; TEMP 36.7–36.8; O2SAT 97–99
[2020-08-06] MEDS: miSOPROStol 25 MCG TAB PO (03:30)
[2020-08-06] MEDS: Normal Saline Flush 10 ML SYR IVP (08:03)
[2020-08-06] MEDS: Lactated Ringers 1,000 ML 125 ML IV ×2 (09:21→19:45)
[2020-08-06] MEDS: Oxytocin/Normal Saline 30 UNIT/500 ML BAG 2 UNITS IV (09:22)
--- NOTE | 2020-08-06 11:40 | W.PM.OBNL1 ---
Date of service: 08/06/20 Time of Service: 11:40 Informed Consent Informed Consent: Augmentation of Labor Pelvic Exam Comments: Sterile vaginal exam deferred this morning. Contractions Monitor Mode: External Contraction Frequency(min): Every 4 Contraction Duration(sec): 1 minute Intensity: Mild/Moderate Fetus A Monitor: External (US) Heart Rate Baseline: 150 Presentation: Cephalic Variability: Moderate (6-25 BPM) Categories: Category I FHR Rhythm: Regular Characteristics: Normal Accelerations: 15 X 15 Decelerations: None Amniotic Membrane Status: Intact Assessment and Plan Assessment and plan (1) Gestational diabetes: Status: Acute (2) : Status: Acute (3) Encounter for induction of labor: Status: Acute Objective Abnormal lab results 08/05/20 Range/Units 19:39 WBC 10.86 H (4.4-10.8) 10^3/uL RBC 5.35 H (3.93-5.22) 10^6/uL MCV 71.8 L (80-95) fL MCH 22.2 L (27.0-33.0) pg MCHC 31.0 L (32.0-36.0) % RDW 15.3 H (11.7-14.6) % Temp Pulse Resp BP Pulse Ox 98.1 F 95 H 20 118/69 98 08/06/20 07:38 08/06/20 09:43 08/06/20 09:43 08/06/20 09:43 08/05/20 18:21 Laboratory Results WBC 10.86 10^3/uL (4.4-10.8) H 08/05/20 19:39 RBC 5.35 10^6/uL (3.93-5.22) H 08/05/20 19:39 Hgb 11.9 g/dL (11.2-15.7) 08/05/20 19:39 Hct 38.4 % (36.0-46.0) 08/05/20 19:39 MCV 71.8 fL (80-95) L 08/05/20 19:39 MCH 22.2 pg (27.0-33.0) L 08/05/20 19:39 MCHC 31.0 % (32.0-36.0) L 08/05/20 19:39 RDW 15.3 % (11.7-14.6) H 08/05/20 19:39 Plt Count 332 10^3/uL (130-400) 08/05/20 19:39 MPV 11.0 fL (8.0-11.0) 08/05/20 19:39 Patient ABO/Rh O Positive 08/05/20 19:39 Antibody Screen Negative 08/05/20 19:39 Subjective Patient Reports: No new Complaints Interval history since last seen: Patient received 3 doses of misoprostol for cervical ripening prior to this morning. Sterile vaginal exam was deferred instead oxytocin infusion was initiated. Morning postprandial CBG was 118. Interventions Augmentation , Pitocin rate (mU/min): 6 Results Hemoglobin/Hematocrit: Hgb 11.9 g/dL (11.2-15.7) 08/05/20 19:39 Hct 38.4 % (36.0-46.0) 08/05/20 19:39 Abnormal Lab Findings: Abnormal Labs 08/05/20 19:39 WBC 10.86 H RBC 5.35 H MCV 71.8 L MCH 22.2 L MCHC 31.0 L RDW 15.3 H Procedure Procedures: Cervical Ripening Cervical Ripening: Misoprostol/ Other (Oxytocin infusion currently 6 milliunits/min.)
[2020-08-06 15:08] LABS: COVID-19 RT-PCR UVMMC Result Negative (Negative)
[2020-08-06] MEDS: Lactated Ringers 500 ML IV (18:00)
--- NOTE | 2020-08-06 18:03 | W.PM.OBNL1 ---
Date of service: 08/06/20 Time of Service: 16:30 Informed Consent Informed Consent: Augmentation of Labor Assessment and Plan Assessment and plan (1) Encounter for induction of labor: Status: Acute Assessment and plan: AROM clear amniotic fluid returned. The plan at this time is to continue oxytocin titration. Potential labor analgesia discussed with patient she is open to epidural if needed. Objective Abnormal lab results 08/05/20 Range/Units 19:39 WBC 10.86 H (4.4-10.8) 10^3/uL RBC 5.35 H (3.93-5.22) 10^6/uL MCV 71.8 L (80-95) fL MCH 22.2 L (27.0-33.0) pg MCHC 31.0 L (32.0-36.0) % RDW 15.3 H (11.7-14.6) % Temp Pulse Resp BP Pulse Ox 98.1 F 85 20 119/83 98 08/06/20 11:46 08/06/20 13:46 08/06/20 13:46 08/06/20 13:46 08/05/20 18:21 Laboratory Results WBC 10.86 10^3/uL (4.4-10.8) H 08/05/20 19:39 RBC 5.35 10^6/uL (3.93-5.22) H 08/05/20 19:39 Hgb 11.9 g/dL (11.2-15.7) 08/05/20 19:39 Hct 38.4 % (36.0-46.0) 08/05/20 19:39 MCV 71.8 fL (80-95) L 08/05/20 19:39 MCH 22.2 pg (27.0-33.0) L 08/05/20 19:39 MCHC 31.0 % (32.0-36.0) L 08/05/20 19:39 RDW 15.3 % (11.7-14.6) H 08/05/20 19:39 Plt Count 332 10^3/uL (130-400) 08/05/20 19:39 MPV 11.0 fL (8.0-11.0) 08/05/20 19:39 COVID-19 PCR Negative (Negative) 08/05/20 19:01 Nasopharyn COVID-19 PCR Not Applicable 08/05/20 19:01 Ref Test Perform Site [facility] 08/05/20 19:01 Patient ABO/Rh O Positive 08/05/20 19:39 Antibody Screen Negative 08/05/20 19:39 Subjective Interval history since last seen: Tolerating contractions. Oxytocin infusion continues to be gradually titrated up Results Hemoglobin/Hematocrit: Hgb 11.9 g/dL (11.2-15.7) 08/05/20 19:39 Hct 38.4 % (36.0-46.0) 08/05/20 19:39 Abnormal Lab Findings: Abnormal Labs 08/05/20 19:39 WBC 10.86 H RBC 5.35 H MCV 71.8 L MCH 22.2 L MCHC 31.0 L RDW 15.3 H Procedure Procedures: Other (SVE 4 to 5 cm. AROM with clear amniotic fluid returned. Plan to continue current management)
--- NOTE | 2020-08-06 18:15 | W.PM.OBNL1 ---
Date of service: 08/06/20 Time of Service: 18:15 Informed Consent Informed Consent: Augmentation of Labor Assessment and Plan Assessment and plan (1) Encounter for induction of labor: Status: Acute Objective Abnormal lab results 08/05/20 Range/Units 19:39 WBC 10.86 H (4.4-10.8) 10^3/uL RBC 5.35 H (3.93-5.22) 10^6/uL MCV 71.8 L (80-95) fL MCH 22.2 L (27.0-33.0) pg MCHC 31.0 L (32.0-36.0) % RDW 15.3 H (11.7-14.6) % Temp Pulse Resp BP Pulse Ox 98.1 F 85 20 119/83 98 08/06/20 11:46 08/06/20 13:46 08/06/20 13:46 08/06/20 13:46 08/05/20 18:21 Laboratory Results WBC 10.86 10^3/uL (4.4-10.8) H 08/05/20 19:39 RBC 5.35 10^6/uL (3.93-5.22) H 08/05/20 19:39 Hgb 11.9 g/dL (11.2-15.7) 08/05/20 19:39 Hct 38.4 % (36.0-46.0) 08/05/20 19:39 MCV 71.8 fL (80-95) L 08/05/20 19:39 MCH 22.2 pg (27.0-33.0) L 08/05/20 19:39 MCHC 31.0 % (32.0-36.0) L 08/05/20 19:39 RDW 15.3 % (11.7-14.6) H 08/05/20 19:39 Plt Count 332 10^3/uL (130-400) 08/05/20 19:39 MPV 11.0 fL (8.0-11.0) 08/05/20 19:39 COVID-19 PCR Negative (Negative) 08/05/20 19:01 Nasopharyn COVID-19 PCR Not Applicable 08/05/20 19:01 Ref Test Perform Site [facility] 08/05/20 19:01 Patient ABO/Rh O Positive 08/05/20 19:39 Antibody Screen Negative 08/05/20 19:39 Subjective Patient Reports: New Complaints (Contractions becoming increasingly more painful. Patient requests epidural) Interval history since last seen: SVE: 5 cm 100% effaced +1 station cervix mid position Interventions Pain Management Interventions: Epidural (Anesthesia notified of patient's request for labor epidural.) and Nitrous Oxide , Nitrous oxide administered and well-tolerated by the patient. ./ Induction Indication: Gestational Diabetes , Type of Induction: Artifical Rupture of Membranes, Misoprostol administration: Oral, Pitocin rate at(mU/min): 16 Current concentration of oxytocin fusion. . and Cervical Ripening , Results Hemoglobin/Hematocrit: Hgb 11.9 g/dL (11.2-15.7) 08/05/20 19:39 Hct 38.4 % (36.0-46.0) 08/05/20 19:39 Abnormal Lab Findings: Abnormal Labs 08/05/20 19:39 WBC 10.86 H RBC 5.35 H MCV 71.8 L MCH 22.2 L MCHC 31.0 L RDW 15.3 H Procedure Procedures: Other (Patient offered nitrous oxide while awaiting arrival of anesthesia provider.)
[2020-08-06] MEDS: Bupivacaine 0.25% Pres-Free 30 ML VIAL (19:00)
[2020-08-06] MEDS: FentaNYL/ROPIvacaine 2 mcg/ml and 0.1% 200 ML CADD Cassette EP (19:00)
--- NOTE | 2020-08-06 22:47 | W.PM.OBNL1 ---
Date of service: 08/06/20 Time of Service: 22:47 Informed Consent Informed Consent: Augmentation of Labor Objective Temp Pulse Resp BP Pulse Ox 98.3 F 83 20 106/62 99 08/06/20 21:52 08/06/20 22:37 08/06/20 13:46 08/06/20 22:37 08/06/20 19:06 Laboratory Results WBC 10.86 10^3/uL (4.4-10.8) H 08/05/20 19:39 RBC 5.35 10^6/uL (3.93-5.22) H 08/05/20 19:39 Hgb 11.9 g/dL (11.2-15.7) 08/05/20 19:39 Hct 38.4 % (36.0-46.0) 08/05/20 19:39 MCV 71.8 fL (80-95) L 08/05/20 19:39 MCH 22.2 pg (27.0-33.0) L 08/05/20 19:39 MCHC 31.0 % (32.0-36.0) L 08/05/20 19:39 RDW 15.3 % (11.7-14.6) H 08/05/20 19:39 Plt Count 332 10^3/uL (130-400) 08/05/20 19:39 MPV 11.0 fL (8.0-11.0) 08/05/20 19:39 COVID-19 PCR Negative (Negative) 08/05/20 19:01 Nasopharyn COVID-19 PCR Not Applicable 08/05/20 19:01 Ref Test Perform Site [facility] 08/05/20 19:01 Patient ABO/Rh O Positive 08/05/20 19:39 Antibody Screen Negative 08/05/20 19:39 Vital Signs Reviewed: Yes Objective Narrative Objective Narrative: SVE: 6 cm 100% effaced, +2 station, cervix mid position. heart rate: Category 1. Contractions every 2 minutes, lasting 1 minute. Variables: None. Oxytocin infusion 18 milliunits/min. Subjective Interval history since last seen: Comfortable with epidural in place. Feels pressure during contractions but no pain. Interventions Augmentation , Pitocin rate (mU/min): 18/ Induction Indication: Gestational Diabetes , Type of Induction: Pitocin and Cervical Ripening , Results Hemoglobin/Hematocrit: Hgb 11.9 g/dL (11.2-15.7) 08/05/20 19:39 Hct 38.4 % (36.0-46.0) 08/05/20 19:39 Abnormal Lab Findings: Abnormal Labs 08/05/20 19:39 WBC 10.86 H RBC 5.35 H MCV 71.8 L MCH 22.2 L MCHC 31.0 L RDW 15.3 H Procedure Procedures: Other
[2020-08-07] VITALS (20 sets, daily range): BP systolic 107–126; BP diastolic 56–76; PULSE 75–111; RESP 16; TEMP 36.3–36.9; O2SAT 98–100
--- NOTE | 2020-08-07 00:11 | PGE_ITS ---
Date of service: 08/07/20 Time of Service: 00:11 Informed Consent Informed Consent: Augmentation of Labor Assessment and Plan Assessment and plan (1) Encounter for induction of labor: Status: Acute Assessment and plan: Most recent vaginal exam cervix is 7 cm 90% effaced and presenting part is vertex. Oxytocin infusion continues. heart rate tracing category 1 baseline 150 bpm occasional early deceleration heart rate. Objective Temp Pulse Resp BP Pulse Ox 98.3 F 83 20 126/75 99 08/06/20 21:52 08/07/20 00:08 08/06/20 13:46 08/07/20 00:08 08/06/20 19:06 Laboratory Results WBC 10.86 10^3/uL (4.4-10.8) H 08/05/20 19:39 RBC 5.35 10^6/uL (3.93-5.22) H 08/05/20 19:39 Hgb 11.9 g/dL (11.2-15.7) 08/05/20 19:39 Hct 38.4 % (36.0-46.0) 08/05/20 19:39 MCV 71.8 fL (80-95) L 08/05/20 19:39 MCH 22.2 pg (27.0-33.0) L 08/05/20 19:39 MCHC 31.0 % (32.0-36.0) L 08/05/20 19:39 RDW 15.3 % (11.7-14.6) H 08/05/20 19:39 Plt Count 332 10^3/uL (130-400) 08/05/20 19:39 MPV 11.0 fL (8.0-11.0) 08/05/20 19:39 COVID-19 PCR Negative (Negative) 08/05/20 19:01 Nasopharyn COVID-19 PCR Not Applicable 08/05/20 19:01 Ref Test Perform Site [facility] 08/05/20 19:01 Patient ABO/Rh O Positive 08/05/20 19:39 Antibody Screen Negative 08/05/20 19:39 Subjective Patient Reports: No new Complaints Interval history since last seen: 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 Interventions Pain Management Interventions: Epidural ./ Augmentation , Pitocin rate (mU/min): 18/ Other (Continue current management.) Results Hemoglobin/Hematocrit: Hgb 11.9 g/dL (11.2-15.7) 08/05/20 19:39 Hct 38.4 % (36.0-46.0) 08/05/20 19:39 Abnormal Lab Findings: Abnormal Labs 08/05/20 19:39 WBC 10.86 H RBC 5.35 H MCV 71.8 L MCH 22.2 L MCHC 31.0 L RDW 15.3 H Procedure Procedures: Other (We will continue to perform in and out urinary catheterizations)
--- NOTE | 2020-08-07 13:19 | OBVDS_ITS ---
Date of service: 08/07/20 Time of Service: 13:27 OB Labor/ Delivery Information Providers Doctor: Izzy Holguin Human Resources Leader: Bryan Marvin Nurse: Ruby Salinas Nurse: Edna Nelson Labor/Delivery Information Number of Babies in Womb: 1 Steroids Given: None Reason Steroids Not Administered: N/A Group Beta Strep: Negative Antibiotics Administered: No Rubella Status: Immune Blood Type: O+ Varicella Immunity: Immune Maternal Complications: None Shoulder Dystocia: No Stages of Labor Onset of Labor Date: 08/06/20 Onset of Labor Time: 18:00 Complete Dilatation Date: 08/07/20 Complete Dilatation Time: 02:00 Labor - Stage 1 Duration: 24 hours and 0 minutes ROM Baby A: 08/06/20 ROM Baby A: 17:30 ROM Total Time- Baby A: [id number] Delivery Date-Baby A: 08/07/20 Infant Delivery Time-Baby A: 04:06 Labor Stage 2 Duration: 2 hours and 6 minutes Placenta Delivery Date-Baby A: 08/07/20 Placenta Delivery Time-Baby A: 04:44 Labor-Stage 3 Duration: 38 minutes Total Length of Labor-Baby A: 10 hours and 6 minutes Placenta Cultured: No Placenta Status: Delivered Baby A Gender: Male Gestational Status: Early Term (37-38.6 wks) Gestational Age in Weeks/Days: 39 Weeks and 2 Days weight: 8 lb 9.216 oz Length-Baby A: 20.08 in Head Circumference-Baby A: 13.39 in Score-1 Minute Interval(Baby A) Heart Rate-1 minute: 100 BPM or Greater Respiratory Effort- 1 minute: Spontaneous/Strong Cry Muscle Tone-1 minute: Minimal Flexion/Extension Reflex Response-1 minute: Prompt Response Color-1 minute: Bluish Hands or Feet Total Score-1 minute: 8 Score-5 Minute Interval(Baby A) Heart Rate- 5 minute: 100 BPM or Greater Respiratory Effort-5 minute: Spontaneous/Strong Cry Muscle Tone-5 minute: Active Movement Reflex Response-5 minute: Prompt Response Color-5 minute: Bluish Hands or Feet Total Score- 5 minute: 9 Procedure Procedures: Cervical Ripening/ Retained Placenta Extraction (45min after , no response to IV oxytocin and gentle cord traction, uterine massage.) , With adequate level of labor analgesia in place sterile gloved hand was inserted into uterine cavity and most fundal portion of placenta was grasped and with fundal massage and maternal expulsive efforts the placenta was delivered in two segments. Final palpation of uterine cavity showed it to be smooth walled and w/o retained placental fragments. No heavy bleeding encountered during 3rd stage. 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
[2020-08-07] MEDS: Acetaminophen 325 MG TAB 650 MG PO (16:45)
[2020-08-07] MEDS: Ibuprofen 600 MG TAB PO (16:46)
[2020-08-08] MEDS: Acetaminophen 325 MG TAB 650 MG PO ×3 (04:48→23:05)
[2020-08-08] MEDS: Ibuprofen 600 MG TAB PO ×3 (04:48→23:05)
[2020-08-08 04:49] VITALS: BP 118/64; PULSE 88; RESP 15; TEMP 36.7; O2SAT 98
--- NOTE | 2020-08-08 08:03 | W.PM.PROGNOT ---
Date of Service Date of service: 08/08/20 Time of Service: 08:03 Assessment and Plan Assessment and plan (1) Vaginal delivery: Status: Acute Assessment and plan: day #1 is post normal spontaneous vaginal delivery with retained placenta and manual extraction. She is doing well. Ambulating, tolerating regular diet. She is working on breast-feeding. Somewhat tearful today. Will monitor for signs of depression and anxiety. Anticipate discharge home tomorrow if stable. (2) Gestational diabetes: Status: Acute (3) Thalassemia: Status: Acute Subjective Subjective Patient reports: tolerating a regular diet Interval history since last seen: Patient seen day #1 today. She is doing well. She is tolerating regular diet. She is working on breast-feeding. She is somewhat emotional today and tearful. We had a lengthy conversation regarding the fact that this is very normal in the immediate . Today, she will work on rest, nursing, and recovery. Her son is doing well. They do request circumcision which will be performed tomorrow if baby is stable. Exam Const General: cooperative, healthy appearing and comfortable Orientation: alert and oriented x3 Eyes General: appearance normal, both eyes and all related structures Resp Effort & Inspection: normal respiratory effort Cardio Rate: regular rate GI Palpation: soft Extrem General: no clubbing, cyanosis or edema Objective Last Vital Signs Temp 98.1 F 08/08/20 04:49 Pulse 88 08/08/20 04:49 Resp 15 08/08/20 04:49 BP 118/64 08/08/20 04:49 Pulse Ox 98 08/08/20 04:49
[2020-08-08 08:05] VITALS: BP 112/68; PULSE 80; RESP 16; TEMP 36.6; O2SAT 98
[2020-08-08 19:36] VITALS: BP 129/82; PULSE 93; RESP 16; TEMP 36.7; O2SAT 98
[2020-08-09 03:10] VITALS: BP 124/76; PULSE 88; TEMP 36.5
[2020-08-09] MEDS: Acetaminophen 325 MG TAB 650 MG PO ×3 (05:09→19:22)
[2020-08-09] MEDS: Ibuprofen 600 MG TAB PO ×3 (05:09→19:22)
[2020-08-09 09:00] VITALS: BP 116/76; PULSE 94; RESP 16; TEMP 36.6; O2SAT 99
--- NOTE | 2020-08-09 09:47 | W.PM.PROGNOT ---
Date of Service Date of service: 08/09/20 Time of Service: 09:47 Assessment and Plan Assessment and plan (1) Vaginal delivery: Status: Acute Assessment and plan: Post day #2. Working on breast feeding. Lochia physiologic. Normal hormonal fluctuations. OK for D/C home today. Follow up in 1 week. Will do circ in next 24-48 hours as outpatient (2) Gestational diabetes: Status: Acute Subjective Subjective Patient reports: denies nausea, vomiting and fever Interval history since last seen: Camille is fatigued and somewhat tearful. Would like D/C today to be in her own environment. SOme cramping and low back discomfort Exam Const General: cooperative, healthy appearing and comfortable Nutritional Appearance: average body habitus Orientation: alert and oriented x3 Eyes General: appearance normal, both eyes and all related structures Chest Chest: normal inspection of the chest Resp Effort & Inspection: normal respiratory effort Auscultation: clear to auscultation bilaterally GI Inspection: normal to inspection Palpation: soft, not firm and no guarding Skin General skin exam: no rashes or lesions noted Neuro General: patient alert and patient oriented x3 Cognition: normal cognition Speech: speech normal Gait: normal gait Extrem General: normal to inspection, no calf tenderness bilaterally, edema Laterality: bilateral and pedal edema bilaterally Psych Appearance: grossly normal Mental Status: mental status grossly normal Speech and Movement: speech and movement normal Mood: congruent mood Affect: normal affect Attitude: cooperative Thought Process: normal Thought Content: normal Insight: insight good Judgment: judgment good Objective Last Vital Signs Temp 97.7 F 08/09/20 03:10 Pulse 88 08/09/20 03:10 Resp 16 08/08/20 19:36 BP 124/76 08/09/20 03:10 Pulse Ox 98 08/08/20 19:36
--- NOTE | 2020-08-09 09:56 | W.PM.OBDISCH ---
Date of service: 08/09/20 Time of Service: 09:56 DS: Diagnosis Discharge Diagnosis (1) Vaginal delivery: Status: Acute (2) Gestational diabetes: Status: Acute Discharge Plan Disposition Patient Disposition: HOME Condition: Good Discharge Details Reason For Visit: TERM , GDM Admit Date/Time: 08/05/20 14:59 Admit Provider: Qiana Walsh Attending Provider: Qiana Walsh Primary Care Provider: [facility] Hospital Course: Patient had a labor induction at term followed by a spontaneous vaginal delivery. Manual extraction of placenta was performed. Uncomplicated post course. D/C post day #2 Home Meds and New Rx's Prescriptions: New ibuprofen 800 mg tablet 800 mg PO Q8H PRNQty: 30 RF: 1 Continued omeprazole 40 mg capsule,delayed release(DR/EC) 40 mg PO DAILY Qty: 60 RF: 5 polyethylene glycol 3350 [Miralax] 17 gram/dose powder 17 g PO DAILY PRN (Reason: constipation) Qty: 119 RF: 0 prenat.vits,jan,[id number]-[id number] Tablet 1 tab PO DAILY RF: 0 epinephrine 0.3 mg/0.3 mL auto-injector 0.3 mg IM ONCE PRNRF: 0 acetaminophen [Tylenol] 325 mg tablet 650 mg PO ONCE PRNRF: 0 Discontinued insulin NPH isoph U-100 human 100 unit/mL (3 mL) insulin pen 10 unit subcut QPM Qty: 15 RF: 0 ibuprofen 600 mg tablet 600 mg PO QID PRN (Reason: pain) Qty: 45 RF: 1 No Action (DME) blood-glucose meter Kit See Rx Instructions .ROUTE .MEDSUPPLY Qty: 1 RF: 0 (DME) pen needle, diabetic [Pen Needle] 31 gauge x 3/16 needle See Rx Instructions .ROUTE .MEDSUPPLY Qty: 50 RF: 2 (DME) OneTouch Verio test strips Strip See Rx Instructions .ROUTE .MEDSUPPLY Qty: 100 RF: 5 (DME) lancets [OneTouch Delica Lancets] 30 gauge misc See Rx Instructions .ROUTE .MEDSUPPLY Qty: 100 RF: 5 (DME) OneTouch Ultra Blue Test Strip Strip See Rx Instructions .ROUTE .MEDSUPPLY Qty: 100 RF: 3 Discharge Instructions Stand Alone Forms: BC Post Vaginal Deliver Activity:: Activity as Tolerated Equipment/Supplies:: No Equipment Needed Diet:: As Tolerated Discharge Orders Discharge Orders: Discharge Order (Routine); Ordered 08/09/20 Ordered By: Qiana Walsh OB:DS Summary Contraception Discussed Contraception Discussed: Yes, [place] Infant Gender-Baby A: Male weight: 8 lb 9.216 oz Status at Discharge Functional status at discharge: independent ambulation Overall status at discharge: patient is back to baseline Mental Status: mental status grossly normal Speech and Movement: speech and movement normal Mood: congruent mood Affect: normal affect Exam Physical Exam Vital signs: Temp Pulse Resp BP Pulse Ox 97.7 F 88 16 124/76 98 08/09/20 03:10 08/09/20 03:10 08/08/20 19:36 08/09/20 03:10 08/08/20 19:36 Constitutional Constitutional: no acute distress Neck Exam Neck Exam: Normal Respiratory Exam Respiratory Exam: Normal Cardiovascular Exam Cardiovascular Exam: Normal Abdominal Exam Comments: Normal Fundal Exam Fundus: Below Umbilicus and Firm Extremities Exam Extremity Exam: Normal and Edema; negative Calf Tenderness Skin Exam Skin Exam: Normal Neurological Exam Neurological Exam: Normal Psychiatric Exam Psychiatric Exam: Normal [facility] Medical History Chronic bladder pain Since 2016. Normal pelvic ultrasound. Multiple office evaluations for dysuria symptoms. Negative urine cultures. Urology consult suggested diagnosis of interstitial cystitis. 09/2018 pelvic pain symptoms increased after Mirena insertion. 10/21/2018 Mirena out Josefina inserted. GERD (gastroesophageal reflux disease) IUD (intrauterine device) in place Josefina and changed to Mirena IUD 01/2018. 2019 Mirena out Josefina reinserted attempt to decrease patient's bladder/pelvic pain. Removed ~ 11/2018. Patient desires 08/2019. IUD removed. Pelvic pain With associated bladder pain symptoms. Negative testing for STI's. Thalassemia 11/2019 MCV 68.5 with previous dx of thalasemia. 12/2019 Nl hemoglobin electrophoresis. 02/2020 Dr. Perez has been consulted regarding further w/u. Vaginal delivery 08/07/20. SVD. Vasquez Hines. [id number]. 39w2d. Retained placenta. Manual extraction. Social History Smoking/Tobacco Use Status: Never Smoking risk assessment performed?: Yes Alcohol Intake: never Drug use: Occasionally Substance use type: marijuana Adopted: Yes Household members: family and other Details: NGUYEN- Brendan. [place]. 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 Sexually active: Yes Do you feel safe at home: Yes Do you feel safe in your relationship?: Yes Female Reproductive History Menstrual control method: progestin IUCD History History 1 Para 0 Hx # Term Pregnancies 0 Multiple births 0 Hx # Pregnancies 0 Ectopic pregnancies 0 AB induced 0 Hx Number of Living Children 0 AB spontaneous 0 DS: Data Vitals/I&O Vitals and I&O: Vital Signs Temperature 97.7 F 08/09/20 03:10 Pulse 88 08/09/20 03:10 Pulse Rhythm Regular 08/09/20 03:50 Respiratory Rate 16 08/08/20 19:36 Respiratory Depth Normal 08/07/20 20:26 Blood Pressure 124/76 08/09/20 03:10 Blood Pressure Mean 92 08/09/20 03:10 Pulse Oximetry 98 08/08/20 19:36 Oxygen Delivery Method Room Air 08/05/20 18:11 Oxygen Flow Rate 0 08/05/20 18:11 Pain Level 3 08/08/20 19:36 Comment 08/05/20 19:16 Intake & Output 08/08/20 08/08/20 08/09/20 11:59 23:59 11:59 Other: Urine Color Pale Yellow
--- NOTE | 2020-08-09 12:48 | NUR.NOTE ---
Verbal order from MD Walsh to hold discharge until tomorrow Nursing Note:
[2020-08-09 20:21] VITALS: BP 133/79; PULSE 93; RESP 16; TEMP 36.7; O2SAT 99
[2020-08-10] MEDS: Ibuprofen 600 MG TAB PO (01:26)
[2020-08-10] MEDS: Acetaminophen 325 MG TAB 650 MG PO (01:26)
--- NOTE | 2020-08-10 09:31 | W.PM.OBPNV1 ---
Date of service: 08/10/20 Time of Service: 09:31 Assessment and Plan Assessment and plan (1) Vaginal delivery: Status: Acute Assessment and plan: day #3 status post normal spontaneous vaginal delivery with retained placenta. Some dysuria today. Will check urinalysis. Anticipate discharge home this afternoon. Follow-up in the office in approximately 1 week's time (2) Gestational diabetes: Status: Acute Assessment and plan: Will check 2-hour diabetes screening test after 6 weeks. Subjective Subjective Interval history: Patient was seen and examined this morning. Discharge yesterday was held due to poor feeding and patient being significantly fatigued. She is doing much better today. Baby has been supplemented and she is also breast-feeding. She had a good night rest. She is feeling well and able to go home today. Her only concern today is some dysuria. We will check a urinalysis Patient comments: Tolerating diet and Flatus present [place] baby status: Doing well, Nursing well and Supplemental feeding going well [place] feeding status: Breast and formula feeding Narrative: Anticipating exclusively breast-feeding once milk supply is well-established and latch is achieved Exam Physical Exam Vital signs: Temp Pulse Resp BP Pulse Ox 98.1 F 93 H 16 133/79 99 08/09/20 20:21 08/09/20 20:21 08/09/20 20:21 08/09/20 20:21 08/09/20 20:21 Constitutional Constitutional: no acute distress HEENT Exam HEENT Exam: Normal Neck Exam Neck Exam: Normal Respiratory Exam Respiratory Exam: Normal Cardiovascular Exam Cardiovascular Exam: Normal Abdominal Exam Comments: Abdomen soft, nontender Fundal Exam Fundus: Below Umbilicus and Firm Extremities Exam Extremity Exam: Normal and Edema (1+ bilateral); negative Calf Tenderness Skin Exam Skin Exam: Normal Neurological Exam Neurological Exam: Normal Psychiatric Exam Psychiatric Exam: Normal DetailedPsychiatric Exam Psych Exam: Normal Affect, Normal Thougth Process, Cooperative and Good Judgement Results Hemoglobin/Hematocrit: Hgb 11.9 g/dL (11.2-15.7) 08/05/20 19:39 Hct 38.4 % (36.0-46.0) 08/05/20 19:39 Abnormal Lab Findings: Abnormal Labs 08/05/20 19:39 WBC 10.86 H RBC 5.35 H MCV 71.8 L MCH 22.2 L MCHC 31.0 L RDW 15.3 H
[2020-08-10 11:07] LABS: Bilirubin Negative (Negative); Blood Large (Negative); Clarity Clear (Clear); Glucose Negative (Negative); Ketones Negative (Negative); Leukocyte Esterase Small (Negative); Nitrite Negative (Negative); Urobilinogen 0.2 EU/dL (Up TO 0.2)
[2020-08-10 11:19] LABS: Bacteria Few HPF (Negative); C & S Indicated? No/Sq. Contamination; Casts Negative LPF (Negative); Crystals Negative HPF (Negative); Epithelial Cells Moderate HPF (Negative); Mucus Negative (Negative); Other Cells Few Renal (Negative)
[2020-08-10 11:38] VITALS: BP 122/78; PULSE 80; RESP 16; TEMP 36.8; O2SAT 99
--- NOTE | 2020-08-13 14:28 | W.PM.DS.N ---
DS: Diagnosis Discharge Diagnosis (1) Vaginal delivery: Status: Acute (2) Gestational diabetes: Status: Acute Discharge Plan Disposition Patient Disposition: HOME Condition: Good Discharge Details Reason For Visit: TERM , GDM Admit Date/Time: 08/05/20 14:59 Admit Provider: Qiana Walsh Attending Provider: Qiana Walsh [facility] Hospital Course: Patient had a labor induction at term followed by a spontaneous vaginal delivery. Manual extraction of placenta was performed. Uncomplicated post course. D/C post day #2 was held due to fatigue and breast-feeding issues. She is stable for discharge home post day #3. She is ambulating, tolerating regular diet and oral pain medication. Home Meds and New Rx's Prescriptions: New ibuprofen 800 mg tablet 800 mg PO Q8H PRNQty: 30 RF: 1 Continued polyethylene glycol 3350 [Miralax] 17 gram/dose powder 17 g PO DAILY PRN (Reason: constipation) Qty: 119 RF: 0 prenat.vits,jan,[id number] Tablet 1 tab PO DAILY RF: 0 epinephrine 0.3 mg/0.3 mL auto-injector 0.3 mg IM ONCE PRNRF: 0 acetaminophen [Tylenol] 325 mg tablet 650 mg PO ONCE PRNRF: 0 Discontinued insulin NPH isoph U-100 human 100 unit/mL (3 mL) insulin pen 10 unit subcut QPM Qty: 15 RF: 0 ibuprofen 600 mg tablet 600 mg PO QID PRN (Reason: pain) Qty: 45 RF: 1 No Action (DME) blood-glucose meter Kit See Rx Instructions .ROUTE .MEDSUPPLY Qty: 1 RF: 0 (DME) pen needle, diabetic [Pen Needle] 31 gauge x 3/16 needle See Rx Instructions .ROUTE .MEDSUPPLY Qty: 50 RF: 2 (DME) OneTouch Verio test strips Strip See Rx Instructions .ROUTE .MEDSUPPLY Qty: 100 RF: 5 (DME) lancets [OneTouch Delica Lancets] 30 gauge misc See Rx Instructions .ROUTE .MEDSUPPLY Qty: 100 RF: 5 (DME) OneTouch Ultra Blue Test Strip Strip See Rx Instructions .ROUTE .MEDSUPPLY Qty: 100 RF: 3 Discharge Instructions Stand Alone Forms: BC Post Vaginal Deliver Activity:: Activity as Tolerated Equipment/Supplies:: No Equipment Needed Diet:: As Tolerated Discharge Orders Discharge Orders: Discharge Order (Routine); Ordered 08/10/20 Ordered By: Qiana Walsh Discharge Data Discharge Date/Time-TO BE ENTERED AT DEPARTURE: 08/10/20 13:00 DS: Summary Status at Discharge Functional status at discharge: independent ambulation Overall status at discharge: patient is back to baseline Mental Status: mental status grossly normal Speech and Movement: speech and movement normal Mood: congruent mood Affect: normal affect Exam Psych Mental Status: mental status grossly normal Speech and Movement: speech and movement normal Mood: congruent mood Affect: normal affect DS: Data Vitals/I&O Vitals and I&O: Vital Signs Temperature 98.2 F 08/10/20 11:38 Pulse 80 08/10/20 11:38 Pulse Rhythm Regular 08/10/20 11:36 Respiratory Rate 16 08/10/20 11:38 Respiratory Depth Normal 08/10/20 11:36 Blood Pressure 122/78 08/10/20 11:38 Blood Pressure Mean 92 08/10/20 11:38 Pulse Oximetry 99 08/10/20 11:38 Oxygen Delivery Method Room Air 08/05/20 18:11 Oxygen Flow Rate 0 08/05/20 18:11 Pain Level 2 08/10/20 11:38 Comment 08/05/20 19:16 [facility] Medical History Chronic bladder pain Since 2016. Normal pelvic ultrasound. Multiple office evaluations for dysuria symptoms. Negative urine cultures. Urology consult suggested diagnosis of interstitial cystitis. 09/2018 pelvic pain symptoms increased after Mirena insertion. 10/21/2018 Mirena out Josefina inserted. GERD (gastroesophageal reflux disease) IUD (intrauterine device) in place Josefina and changed to Mirena IUD 01/2018. 2019 Mirena out Josefina reinserted attempt to decrease patient's bladder/pelvic pain. Removed ~ 11/2018. Patient desires 08/2019. IUD removed. Pelvic pain With associated bladder pain symptoms. Negative testing for STI's. Thalassemia 11/2019 MCV 68.5 with previous dx of thalasemia. 12/2019 Nl hemoglobin electrophoresis. 02/2020 Dr. Perez has been consulted regarding further w/u. Vaginal delivery 08/07/20. SVD. Vasquez Hines. [id number]. [id number]. Retained placenta. Manual extraction. Social History Smoking/Tobacco Use Status: Never Smoking risk assessment performed?: Yes Alcohol Intake: never Drug use: Occasionally Substance use type: marijuana Adopted: Yes Household members: family and other Details: BF- Mustapha. . 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 Date GA/Weeks # Outcome Route Wgt Sex Labor Lgth Anesthesia Location Prov Complic 08/07/20 39 No Successful vaginal 8 lb [address] Huffman Delivery Date: 08/07/20 retained placenta Tiffany Murillo LPN
== END 2020-08-10 13:00 | disposition home or self-care (01) | DRG 806 ==
PROVIDERS: Admitting Provider Obstetrics & Gynecology; PCP Family Medicine; Visit Provider Obstetrics & Gynecology
DX: O72.2 Delayed and secondary postpartum hemorrhage (principal); O99.12 Other diseases of the blood and blood-forming organs and certain disorders involving the immune mechanism complicating childbirth; Z37.0 Single live birth; O24.414 Gestational diabetes mellitus in pregnancy, insulin controlled; Z79.4 Long term (current) use of insulin; Z67.40 Type O blood, Rh positive; Z3A.39 39 weeks gestation of pregnancy; D56.9 Thalassemia, unspecified; O90.89 Other complications of the puerperium, not elsewhere classified; R30.0 Dysuria
CPT/HCPCS: 85027; 86850; 86900; 86901; 99222; 99232; 99238; U0003; 81003; 81015; J3490

== ENCOUNTER 2020-09-23 16:26 | Outpatient (CLI) | payer MEDICAID, SELFPAY | END 2020-09-23 16:46 | PROVIDERS: PCP Family Medicine; Visit Provider Obstetrics & Gynecology Gynecology | DX: R69 Illness, unspecified (principal) ==

== ENCOUNTER 2020-10-03 01:44 | Outpatient (CLI) | payer MEDICAID, SELFPAY ==
[2020-10-03 12:14] LABS: GTT Comment See Comments
== END 2020-10-03 02:04 ==
PROVIDERS: PCP Family Medicine; Visit Provider Obstetrics & Gynecology Gynecology
DX: Z39.2 Encounter for routine postpartum follow-up (principal); O24.434 Gestational diabetes mellitus in the puerperium, insulin controlled
CPT/HCPCS: 36410; 82951

== ENCOUNTER 2020-11-21 12:04 | Outpatient (REF) | payer MEDICAID, SELFPAY ==
--- NOTE | 2020-11-21 11:30 | PAPFT_PTH ---
PATIENT: Camille Arroyo LOC: [facility] U#:[id number] AGE/SX: 25/F ROOM: RE11/21/[address]: Sadia Warner : 1995 BED: DIS: 11/21/2020 SPEC #: [id number] RECD: 11/21/20 17:46 STATUS: BRANNON REDenisse #: [id number] COOPER: 11/21/20 11:[address]: Sadia Warner DEPT: [facility] Cytology RECD BY: Deyanira Lindo Tissues: 1 - CX/ENDOCX FOR PAP SMEARS Procedures: PAP THIN PREP/UVM Screening Comments: [id number]
== END 2020-11-21 12:05 | disposition home or self-care (01) ==
LOC: NCHCN 12:04
PROVIDERS: PCP Family Medicine; Visit Provider Family Medicine
DX: Z12.4 Encounter for screening for malignant neoplasm of cervix (principal)
CPT/HCPCS: 88142

== ENCOUNTER 2021-04-27 13:15 | Outpatient (REF) | payer MEDICAID, SELFPAY ==
[2021-04-28 15:00] LABS: Chlamydia Result Negative (Negative); GC Result Negative (Negative)
== END 2021-04-27 13:16 | disposition home or self-care (01) ==
LOC: LBN 13:15
PROVIDERS: PCP Family Medicine; Visit Provider Nurse Practitioner Family
DX: Z11.3 Encounter for screening for infections with a predominantly sexual mode of transmission (principal)
CPT/HCPCS: 87491; 87591

== ENCOUNTER 2021-05-20 14:39 | Outpatient (REF) | payer MEDICAID, SELFPAY | END 2021-05-20 14:40 | disposition home or self-care (01) | LOC: LBN 14:39 | PROVIDERS: PCP Family Medicine; Visit Provider Advanced Practice Midwife | DX: R30.0 Dysuria (principal) | CPT/HCPCS: 87086 ==

== ENCOUNTER 2021-08-03 14:19 | Outpatient (REF) | payer MEDICAID, SELFPAY ==
[2021-08-04 21:22] LABS: COVID-19 RT-PCR UVMMC Result Negative (Negative)
== END 2021-08-03 14:20 | disposition home or self-care (01) ==
LOC: LBN 14:19
PROVIDERS: PCP Family Medicine; Visit Provider Nurse Practitioner Family
DX: Z20.822 Contact with and (suspected) exposure to COVID-19 (principal)
CPT/HCPCS: U0003

== ENCOUNTER 2021-10-13 13:24 | Outpatient (REF) | payer SELFPAY | END 2021-10-13 13:25 | disposition home or self-care (01) | LOC: LBO 13:24 | PROVIDERS: PCP Family Medicine; Visit Provider Family Medicine | DX: Z20.822 Contact with and (suspected) exposure to COVID-19 (principal) | CPT/HCPCS: 87635 ==

== ENCOUNTER 2021-10-14 18:44 | Emergency (ER) | payer MEDICAID, SELFPAY ==
[2021-10-14 18:44] VITALS: PULSE 103; RESP 14; TEMP 36.8; O2SAT 98
--- NOTE | 2021-10-14 18:45 | DI.RAD_ITS ---
Exam(s) XR HAND LT COMPLETE EXAM: XR HAND LT COMPLETE CLINICAL HISTORY: Trauma, R/O Fracture/ FB. TECHNIQUE: 2D digital imaging was performed. COMPARISON: No exams were available for comparison FINDINGS: There is no evidence of acute fracture or subluxation. No radiopaque foreign body. There is a nonacute appearing bone density off the lateral aspect of the base of the proximal phalanx of the 3rd finger. This is semi lunar in shape measuring 3.5 x 2 millimeters. Probable sequela of remote injury. No other similar findings elsewhere in the hand. Bone density is normal. There are no osseous lesions. IMPRESSION: No acute fracture evident. Other finding as above. DATA REPOSITORY: RADIATION DOSE DELIVERED:
--- NOTE | 2021-10-14 18:45 | DI.RAD_ITS ---
Exam(s) XR FOREARM LT EXAM: XR FOREARM LT CLINICAL HISTORY: Trauma, R/O Foreign Body (glass). TECHNIQUE: 2D digital imaging was performed. COMPARISON: No exams were available for comparison FINDINGS: There is evidence of soft tissue injury in the lateral aspect of the distal forearm. There is no rad iopaque foreign body. No gas in the soft tissues. There is no evidence of fracture. No dislocation. Bone density normal. No osseous lesions. IMPRESSION: Soft tissue injury. No osseous findings. DATA REPOSITORY: RADIATION DOSE DELIVERED:
--- NOTE | 2021-10-14 18:53 | W.ED.GENAD ---
Discharge Plan Disposition Patient Disposition: HOME Condition: Stable Discharge Details Clinical Impression: Laceration of extensor tendon of left forearm Primary Care Provider: Sadia Warner ED Provider: Laura Garcia Home Meds and New Rx's Prescriptions: New clindamycin HCl 300 mg capsule 300 mg PO BID 7 Days Qty: 14 RF: 0 No Action epinephrine 0.3 mg/0.3 mL auto-injector 0.3 mg IM ONCE PRN (Reason: anaphylaxis) Qty: 1 RF: 1 prenat.vits,jan,[id number] Tablet 1 tab PO DAILY RF: 0 ibuprofen 600 mg tablet 600 mg PO Q6H PRN (Reason: pain) Qty: 60 RF: 0 acetaminophen [Tylenol] 325 mg tablet 650 mg PO ONCE PRNRF: 0 Discharge Instructions Instructions: Laceration (ED) Additional Instructions: At this time there is no retained foreign body noted on x-rays or broken bones. However I am concerned for a possible extensor tendon injury. Please follow-up with orthopedic in the office tomorrow. They should call you. Keep the dressing on for the next 12 to 24 hours. After that you may wash under running soap and water. No soaking. You were given a dose of clindamycin here in the ER today. Keep clean and dry. Return for any signs of infection including increased redness, red streaks, drainage, worsening pain or concerns. Please work on extending your wrist as much as possible until further instructions by orthopedics. Stand Alone Forms: Work Release Referrals: Shady Powers MD [ [facility] STAFF PHYSICIAN] - 1 day (Call tomorrow if you do not hear from them by 3:00pm) Medical Decision Making 26 year old female presents to the ER chief complaint of left arm laceration and left hand pain status post punching a window approximately 30 minutes prior to arrival. Patient has a laceration to the dorsum of her left forearm measuring approximately 4 to 5 cm curved shaped. She does have some dorsal hand swelling noted at the base of the fifth finger. She also reports numbness and decreased range of motion noted to her hand. She reports that she is up-to-date on tetanus vaccination. Record of Last TDAP 2019. Bleeding is controlled upon arrival. Dressing and let applied. Imaging will be ordered to rule out foreign body and/or fracture. Past medical history includes GERD, thalassemia, anxiety. Patient has distal sensation intact, two-point discrimination noted to the dorsum of the left thumb and the palmar aspect. She is able to make a fist. She is however unable to extend her left wrist. When she raises her forearm her hand drop. No visible tendon injury noted. 2035: Spoke with Dr. Powers who is on-call for orthopedic surgery regarding patient case and details. He recommends antibiotic and a splint. Dr. Powers recommends urgent follow-up in the orthopedic clinic he reports that the office will call her tomorrow for evaluation. Patient placed in a universal prefabricated thumb spica wrist splint, nonadherent dressing applied by staffing specialist. Patient instructed on use. Patient instructed to have sutures removed in 5 to 7 days and/or further instructions by orthopedics. She verbalizes understanding. Patient was given clindamycin 300 mg here in the department due to the penicillin allergy. Patient was also requesting something for pain was given 2 tablets of tramadol. Patient instructed to alternate Tylenol and ibuprofen if needed and elevation. At this time I am concerned for possible extensor injury. This text was generated using 23pressation system, please disregard any oddities of phrase or misspellings. HPI General Mode of arrival: EMS. Date/Time Provider Initiated Documentation: 10/14/21 18:52. Limitations to Documentation: no limitations. Information obtained by: patient, EMS and RN notes reviewed. HPI Narrative: 26 year old female presents to the ER chief complaint of left arm laceration and left hand pain status post punching a window approximately 30 minutes prior to arrival. Patient has a laceration to the dorsum of her left forearm measuring approximately 4 to 5 cm curved shaped. She does have some dorsal hand swelling noted at the base of the fifth finger. She also reports numbness and decreased range of motion noted to her hand. She reports that she is up-to-date on tetanus vaccination. Record of Last TDAP 2019. Bleeding is controlled upon arrival. Dressing and let applied. Imaging will be ordered to rule out foreign body and/or fracture. Past medical history includes GERD, thalassemia, anxiety. Related Data Home Medications Medication Instructions Recorded Confirmed prenat.vits,jan,[id number] 1 tab PO DAILY 12/31/19 10/14/21 acetaminophen 325 mg tablet 650 mg PO ONCE PRN tab 06/15/20 01/19/22 ibuprofen 600 mg tablet 600 mg PO Q6H PRN #60 tab 11/30/20 10/14/21 epinephrine 0.3 mg/0.3 mL 0.3 mg IM ONCE PRN #1 ea 05/20/21 10/14/21 injection, auto-injector clindamycin HCl 300 mg PO BID 7 Days #14 cap 10/14/21 Previous Rx's Medication Instructions Recorded ibuprofen 600 mg tablet 600 mg PO Q6H PRN #60 tab 11/30/20 epinephrine 0.3 mg/0.3 mL 0.3 mg IM ONCE PRN #1 ea 05/20/21 injection, auto-injector clindamycin HCl 300 mg PO BID 7 Days #14 cap 10/14/21 Allergies Allergy/AdvReac Type Severity Reaction Status Date / Time venom-honey bee Allergy Intermediate Swelling/Ed Verified 10/14/21 18:47 [bee venom (honey bee)] anastacio perfume Allergy Mild Verified 10/14/21 18:47 Penicillins AdvReac Intermediate GI Verified 10/14/21 18:47 upset/Headache DUST Allergy Mild Uncoded 10/14/21 18:47 FOOD DYE Allergy Mild Uncoded 10/14/21 18:47 General Stated Complaint: Laceration ALEC: 3 Review of Systems All systems reviewed & are unremarkable except as noted in HPI and below Musculoskeletal Musculoskeletal: Reports as per HPI, Reports arthralgias and Reports joint swelling Integumentary/Breasts Skin/Breast: Reports wounds [facility] All Active Problems (Updated 10/14/21 @ 20:48 by Laura Garcia) Laceration of extensor tendon of left forearm (Acute) Encounter for IUD removal (Acute) Lower abdominal pain (Acute) Dysuria (Acute) UTI (urinary tract infection) (Acute) depression (Acute) anxiety and depression. Social stressors. Abdominal pain (Acute) Rectal bleeding (Acute) 11/03/2020. Normal exam. Hemoccult negative Encounter for insertion of intrauterine contraceptive device (IUD) (Acute) GERD (gastroesophageal reflux disease) (Chronic) Thalassemia (Acute) 11/2019 MCV 68.5 with previous dx of thalasemia. 12/2019 Nl hemoglobin electrophoresis. 02/2020 Dr. Perez has been consulted regarding further w/u. IUD (intrauterine device) in place (Chronic) Josefina and changed to Mirena IUD 01/2018. 2019 Mirena out Josefina reinserted attempt to decrease patient's bladder/pelvic pain. Removed ~ 11/2018. 09/2020. PP Josefina inserted. Chronic bladder pain (Chronic) Since 2016. Normal pelvic ultrasound. Multiple office evaluations for dysuria symptoms. Negative urine cultures. Urology consult suggested diagnosis of interstitial cystitis. 09/2018 pelvic pain symptoms increased after Mirena insertion. 10/21/2018 Mirena out Josefina inserted. Pelvic pain (Chronic) With associated bladder pain symptoms. Negative testing for STI's. IC (interstitial cystitis) (Acute 05/03/18) Hypertrophy of tonsils and adenoids (Acute 09/04/15) Contraception (Acute 04/06/16) 10/07/2020. Josefina IUD. Chronic tonsillitis and adenoiditis (Acute 09/04/15) Social History Smoking/Tobacco Use Status: Never Smoking risk assessment performed?: Yes Alcohol Intake: never Drug use: Occasionally Substance use type: marijuana Adopted: Yes Household members: family and other Details: BF- Mustapha. . 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 Date GA/Weeks # Outcome Route Wgt Sex Labor Lgth Anesthesia Location Prov Complic 08/07/20 39 No Successful vaginal 3883.[address] Huffman Delivery Date: 08/07/20 retained placenta. manual extraction at bedside. Izzy Jamil Exam Extrem General: normal to inspection Left upper extremity: normal capillary refill, elbow/forearm Details: laceration forearm mid anterior Details: L-shaped (S Shaped) and involving subcutaneous tissue, forearm mid posterior , wrist Details: abnormal ROM Details: pain with active ROM (Unable to perform extension, is able to extend some distal sensation is intact.) Details: with extension and hand Details: normal capillary refill and swelling Location: of the dorsal hand; ROM limited (Decreased wrist extension, wrist drop noted when raising forearm) Elbow/forearm/wrist images: 1. Semicircular approximately 4 cm laceration noted to the radial side of her left wrist. Course Vital Signs Vital signs: Vital Signs Temperature 36.8 C 10/14/21 18:44 Pulse 103 H 10/14/21 18:44 Respiratory Rate 14 10/14/21 18:44 Pulse Oximetry 98 10/14/21 18:44 Temperature 36.8 C 10/14/21 18:44 Temperature Source Temporal Artery Scan 10/14/21 18:44 Pulse 103 H 10/14/21 18:44 Respiratory Rate 14 10/14/21 18:44 Respiratory Effort Non-Labored 10/14/21 18:49 Blood Pressure Position Sitting 10/14/21 18:44 Pulse Oximetry 98 10/14/21 18:44 Oxygen Delivery Method Room Air 10/14/21 18:44 Oxygen Flow Rate 0 10/14/21 18:44 Pain Level 6 10/14/21 18:49 Procedures Laceration Laceration 1: Site: upper extremity Side (If applicable): left Size (cm): 4 Description: other (Semi circular) Depth: simple, single layer Local Anesthetic: Lidocaine 1% and with Epi Amount of anesthesia used (mL): 3 Pre-repair: wound explored, irrigated extensively and deep structures intact (Prior to closing questionable motor deficit patient is unable to extend wrist) Skin layer closed with: nylon Size (cm): 4-0 Number of sutures: 7 Technique: simple, interrupted
[2021-10-14] MEDS: Lidocaine/Epinephri/Tetracaine Topical Gel 3 ML TP (18:59)
[2021-10-14] MEDS: Ondansetron O.D.T. 4 MG TABEF PO (19:14)
[2021-10-14] MEDS: Acetaminophen 500 MG TAB 1000 MG PO (19:23)
--- NOTE | 2021-10-14 20:03 | DI.VRAD_ITS ---
PROCEDURE INFORMATION: Exam: XR Left Hand Exam date and time: 10/14/2021 6:53 PM Age: 26 years old Clinical indication: Pain and injury or trauma; Blunt trauma (contusions or hematomas); Hand; Left TECHNIQUE: Imaging protocol: XR Left hand. Views: 3 or more views. COMPARISON: CR XR FOREARM LT 10/14/2021 7:31 PM FINDINGS: Bones/joints: No suspicious osseous lytic or blastic lesion. No acute fracture or dislocation. 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 Soft tissues: No focal abnormality. IMPRESSION: No acute fracture or dislocation. Dictated and Authenticated by: Bryan Alonso MD. Ordering:RENU Sanchez MD
--- NOTE | 2021-10-14 20:05 | DI.VRAD_ITS ---
PROCEDURE INFORMATION: Exam: XR Left Forearm Exam date and time: 10/14/2021 6:53 PM Age: 26 years old Clinical indication: Injury or trauma; Blunt trauma (contusions or hematomas) and laceration; Arm, lower; Left TECHNIQUE: Imaging protocol: XR Left forearm. Views: 2 views. COMPARISON: No relevant prior studies available. FINDINGS: Bones/joints: No suspicious osseous lytic or blastic lesion. No acute fracture or dislocation. Soft tissues: Posttraumatic soft tissue changes along the radial aspect of the distal forearm. No radiopaque retained foreign body. There is overlying bandage material. IMPRESSION: No acute fracture or dislocation. Dictated and Authenticated by: Bryan Alonso MD. Ordering:RENU Sanchez MD
[2021-10-14] MEDS: Bacitracin 1 PACKET TP (20:45)
[2021-10-14] MEDS: Clindamycin 150 MG CAP 300 MG PO (20:54)
[2021-10-14 20:55] VITALS: BP 120/65; PULSE 93; TEMP 37.3; O2SAT 99
== END 2021-10-14 21:06 | disposition home or self-care (01) ==
PROVIDERS: Emergency Provider Registered Nurse Emergency; PCP Family Medicine
DX: S56.522A Laceration of other extensor muscle, fascia and tendon at forearm level, left arm, initial encounter (principal); W22.8XXA Striking against or struck by other objects, initial encounter
CPT/HCPCS: 12002; 29125; 81025; 99284; 73090; 73130; 99283

== ENCOUNTER 2021-10-19 03:41 | Outpatient (CLI) | payer MEDICAID, SELFPAY ==
[2021-10-21 12:11] LABS: TB Interpretation Negative (Negative); TB1 Ag minus Nil 0.01 IU/ml
== END 2021-10-19 03:42 | disposition home or self-care (01) ==
LOC: LBO 03:42
PROVIDERS: PCP Family Medicine; Visit Provider Family Medicine
DX: Z11.1 Encounter for screening for respiratory tuberculosis (principal)
CPT/HCPCS: 36415; 86480

== ENCOUNTER 2021-12-19 13:13 | Outpatient (REF) | payer MEDICAID, SELFPAY ==
[2021-12-19 17:11] LABS: Bacteria Negative HPF (Negative); C & S Indicated? C&S Done As Ordered; Casts Negative LPF (Negative); Crystals Negative HPF (Negative); Epithelial Cells Negative HPF (Negative); Mucus Negative (Negative); Other Cells Negative (Negative); RBC Negative HPF (0-2); WBC 20-50 HPF (0-5)
== END 2021-12-19 13:14 | disposition home or self-care (01) ==
LOC: NCHCN 13:13
PROVIDERS: PCP Family Medicine; Visit Provider Physician Assistant Medical
DX: R35.0 Frequency of micturition (principal)
CPT/HCPCS: 81015; 87086

== ENCOUNTER 2022-01-21 19:12 | Outpatient (REF) | payer MEDICAID, SELFPAY ==
[2022-01-21 15:26] LABS: Hemoglobin A1C 5.9 % (<5.7)
[2022-01-21 15:41] LABS: ALT 48 U/L (14-59); AST 17 U/L (15-37); Albumin 4.2 g/dL (3.4-5.0); Alkaline Phosphatase 60 U/L (46-116); Anion Gap 7.1 mmol/L (3-11); BUN 7 mg/dL (7-18); Bilirubin, Total 0.3 mg/dL (0.2-1.0); CO2 27.9 mmol/L (21.0-32.0); CREATININE 0.7 mg/dL (0.55-1.02); Chloride 105 mmol/L (98-107); Glucose 95 mg/dL (74-106); Potassium 4.4 mmol/L (3.5-5.1); Sodium 140 mmol/L (136-145); TSH (W/Ref FT4) 0.45 uIU/mL (0.36-3.74); Total Protein 7.5 g/dL (6.4-8.2)
[2022-01-21 15:56] LABS: Lipase 121 U/L (73-393)
== END 2022-01-21 19:13 | disposition home or self-care (01) ==
LOC: NCHCN 19:12
PROVIDERS: PCP Family Medicine; Visit Provider Family Medicine
DX: R63.5 Abnormal weight gain (principal); R11.0 Nausea; Z86.32 Personal history of gestational diabetes
CPT/HCPCS: 80053; 83690; 83036; 84443

== ENCOUNTER 2022-02-25 18:33 | Outpatient (REF) | payer MEDICAID, SELFPAY ==
[2022-02-26 01:47] LABS: COVID-19 RT-PCR UVMMC Result Negative (Negative)
== END 2022-02-25 18:34 | disposition home or self-care (01) ==
LOC: LBN 18:33
PROVIDERS: PCP Family Medicine; Visit Provider Physician Assistant Medical
DX: Z20.822 Contact with and (suspected) exposure to COVID-19 (principal); J34.89 Other specified disorders of nose and nasal sinuses
CPT/HCPCS: U0003

== ENCOUNTER → 2022-03-23 02:07 | Outpatient (CLI) | payer MEDICAID, SELFPAY ==
--- OUTSIDE RECORDS SUMMARY | 2022-03-19 00:19 | XMS_ITS | Encounter Summary ---
:1995 Author Organization [facility] Address [address] [place] [address] Care Team Providers Name Role Phone Sadia Warner MD Primary Care Provider Encounter Details Date Type Department Care Team Description 10/20/2021 Lab Requisition [facility] Medical Center Outr Resulting Lab, Pathology & Laboratory Provider [facility] [address] [place] [address] Social History Tobacco Use Types Packs/Day Years Used Date Never Smoker Alcohol Use Standard Drinks/Week Comments Yes 0 (1 standard drink = 0.6 oz pure alcoho l) Sex Assigned at Date Recorded Not on file documented as of this encounter Plan of Treatment Not on filedocumented as of this encounter Procedures Procedure Name Priority Date/Time Associated Comments Diagnosis QUANTIFERON MITOGEN Today 10/19/2021 15:01 (PERFORMABLE) EST QUANTIFERON TB2 Today 10/19/2021 15:01 (PERFORMABLE) EST QUANTIFERON TB1 Today 10/19/2021 15:01 (PERFORMABLE) EST QUANTIFERON NIL Today 10/19/2021 15:01 (PERFORMABLE) EST QUANTIFERON Today 10/19/2021 15:01 Results for this INTERPRETATION EST procedure are in (PERFORMABLE) the results section. QUANTIFERON TB GOLD Routine 10/19/2021 15:01 Resu lts for this PLUS EST procedure are i n the results section. documented in this encounter Results QUANTIFERON INTERPRETATION (PERFORMABLE) (10/19/2021 15:01 EST) Quantiferon NegativeComment: No Negative [facility] MED[facility] Interpretation interferon-gamma [facility]ORY response to M. SERVICES tuberculosis antigens was detected. ??Infection with M. tuberculosis is unlikely. A single negative result does not exclude infection with M. tuberculosis. ??In patients at high risk for M. tuberculosis infection, a second test should be considered. TB1 Ag minus Nil 0.01 IU/ml [facility] TB2 Ag minus Nil 0.00 IU/mL [facility] Specimen Blood - Venous blood (substance) Narrative [facility] - 10/21/2021 12:06 EST Results were obtained with the Qiagen QuantiFERON-TB Gold Plus CLIA. New platform in use 06/03/2021 Performing Organization Address City/[facility]/ZIP Code Phon e Number [facility] [address] [place] [address] SERVICES QUANTIFERON MITOGEN (PERFORMABLE) (10/19/2021 15:01 EST) Specimen Blood - Venous blood (substance) Performing Organization Address City/[facility]/ZIP Code Phon e Number [facility] [address] [place] [address] SERVICES QUANTIFERON TB2 (PERFORMABLE) (10/19/2021 15:01 EST) Specimen Blood - Venous blood (substance) Performing Organization Address City/[facility]/ZIP Code Phon e Number [facility] [address] [place] [address] SERVICES QUANTIFERON TB1 (PERFORMABLE) (10/19/2021 15:01 EST) Specimen Blood - Venous blood (substance) Performing Organization Address City/[facility]/ZIP Code Phon e Number [facility] [address] [place] [address] SERVICES QUANTIFERON NIL (PERFORMABLE) (10/19/2021 15:01 EST) Specimen Blood - Venous blood (substance) Performing Organization Address City/[facility]/ZIP Code Phon e Number [facility] [address] [place] [address] SERVICES documented in this encounter Visit Diagnoses Not on filedocumented in this encounter Care Teams Wool Tamper Relationship Specialty Start Date End Date Sadia Warner MD PCP - General 06/20/[address] [place] [phone] documented as of this encounter
--- OUTSIDE RECORDS SUMMARY | 2022-03-19 00:19 | XMS_ITS | Encounter Summary ---
:1995 Author Organization [facility] Address [address] [place] [address] Care Team Providers Name Role Phone Unknown, Provider Primary Care Provider Encounter Details Date Type Department Care Team Description 06/03/2017 Results Only [facility]- Sadia Munoz MD [phone] [address] [place] [phone] (Wo rk) Social History Tobacco Use Types Packs/Day Years Used Date Never Assessed Sex Assigned at Date Recorded Not on file documented as of this encounter Plan of Treatment Not on filedocumented as of this encounter Procedures Procedure Name Priority Date/Time Associated Diagnosis Comme nts PAP TEST- RESULT Routine 06/03/2017 0:00 EDT Resu lts for this ONLY procedure are i n the results section. documented in this encounter Results PAP TEST- RESULT ONLY (06/03/2017 0:00 EDT) Pathology Report: CYTOPATHOLOGY REPORT [facility] Reports generated via electronic interface contain katerine ginal data; SERVICES however they are lacking the format of the original re port. Caution should be taken when reading/interpreting unfo rmatted reports. Name: ? CAMILLE ARROYO ? Accession #: ? [id number] ? : ? 1995 (Age: 3 1) ??F ?Collect Date: ? 2016 ? Location: ? [facility] ? Receive Date: ? 06/08/20 17 ? Provider: SADIA TAYLOR MD Copy to: ? Final Report SPECIMEN ADEQUACY ? Satisfactory for Evaluation - transformation zone component present GENERAL CATEGORIZATION ? Epithelial Cell Abnormality INTERPRETATION ? Squamous Cell Abnormality - Atypical squamous c ells, undetermined significance (ASC-US). EDUCATIONAL NOTES/RECOMMENDATIONS ? [facility] recommends foll owing ASCCP's 2012 Updated Consensus Guidelines for the Management of Abnormal Cervical Cancer Screening T ests and Cancer Precursors (JLGTD, 2013; 17(5):S1-S27). ??Conse nsus guidelines are available online at www.asccp.org. Last Menstrual Period: 05/20/2017 Hormonal/Contraceptive status: Intrauterine device: In place Other: First Pap Specimen/Source: ??Pap Test, Cervix, ThinPrep Imaging System with manual evaluation Document reviewed and electronically signed by: ? MEGHANN CLIFTON MD ? Report ??Date: 06/16/2017 13:44 HPV with Pap Test ? Date Ordered: ? 06/16/2017 ? Status: ?? Signed Out ?Date Complete: ? 06/17/2017 ? By: ??Sy stem Interface ? Date Reported: ? 06/17/2017 ? Interpretation RESULT: Positive for high or intermediate risk HPV. E6 OR E7 mRNA from one or more types of HPV types 16,1 8,31, 33,35,39,45,51,52,56,58,59,66, and 68 is detected by television news producer mediated amplification. High and intermediate risk HPV types are associated wi th most squamous intraepithelial lesions and cervical can cers. Comments Document reviewed and electronically signed by: ? System Interface ? Report date: 06/17/2017 By the signature above, the attending physician certif ies that he/she has personally conducted a gross and/or microscopic examin ation of the described specimens and rendered or confirmed the above diagnosi s. End of Report Specimen Performing Organization Address City/State/ZIP Code Phon e Number [facility] [address] [place] [address] SERVICES documented in this encounter Visit Diagnoses Not on filedocumented in this encounter Care Teams Leather Grader Relationship Specialty Start Date End Date Unknown, Provider, PCP - General 06/07/17 06/19/17 documented as of this encounter
--- OUTSIDE RECORDS SUMMARY | 2022-03-19 00:19 | XMS_ITS | Encounter Summary ---
:[address] [facility] Address [address] [place] [address] Care Team Providers Name Role Phone Sadia Warner MD Primary Care Provider Encounter Details Date Type Department Care Team Description 01/18/2020 Lab Requisition [facility] Unknown, Provider, Pathology & Laboratory [facility] [address] [place] [address] [place] [address] Social History Tobacco Use Types Packs/Day Years Used Date Never Smoker Alcohol Use Standard Drinks/Week Comments Yes 0 (1 standard drink = 0.6 oz pure alcoho l) Sex Assigned at Date Recorded Not on file documented as of this encounter Plan of Treatment Not on filedocumented as of this encounter Procedures Procedure Name Priority Date/Time Associated Comments Diagnosis HEMOGLOBINOPATHY AND Routine 01/18/2020 11:14 Res ults for this THALASSEMIA EVALUATION EDT proce sandrine are in the results section. documented in this encounter Results HEMOGLOBINOPATHY AND THALASSEMIA EVALUATION (01/18/2020 11:14 EDT) Hemoglobin A 97.5 96.7 - 97.8 [facility] % [facility] SERVICES Hemoglobin A2 2.5 2.2 - 3.2 % [facility] Comment: [facility]ORY Hemoglobin A2 levels may be decreased in iron deficien cy. SERVICES Hemoglobinopathy Interpretation: [facility] Interpretation No abnormal CENTER hemoglobins LABORATORY identified. SERVICES Reviewed by: Sravan Wood MD, PhD 01/21/2020 14:13. Specimen Blood - Venous blood (substance) Performing Organization Address City/State/ZIP Code Phon e Number [facility] [address] [place] [address] SERVICES documented in this encounter Visit Diagnoses Not on filedocumented in this encounter Care Teams Lathe Machine Operator Relationship Specialty Start Date End Date Sadia Warner MD PCP - General 06/20/[address] [place] [phone] documented as of this encounter
--- OUTSIDE RECORDS SUMMARY | 2022-03-19 00:19 | XMS_ITS | Encounter Summary ---
:1995 Author Organization [facility] Address [address] [place] [address] Care Team Providers Name Role Phone Sadia Warner MD Primary Care Provider Encounter Details Date Type Department Care Team Description 01/18/2020 Lab Requisition [facility] Unknown, Provider, Pathology & Laboratory [facility] [address] [place] [address] [place] [address] Social History Tobacco Use Types Packs/Day Years Used Date Never Smoker Alcohol Use Standard Drinks/Week Comments Yes 0 (1 standard drink = 0.6 oz pure alcoho l) Sex Assigned at Date Recorded Not on file documented as of this encounter Plan of Treatment Not on filedocumented as of this encounter Procedures Procedure Name Priority Date/Time Associated Comments Diagnosis HIV 1/2 ANTIGEN AND Routine 01/18/2020 11:14 Resu lts for this ANTIBODY, 4TH EDT procedure are in GENERATION the results section. documented in this encounter Results HIV 1/2 ANTIGEN AND ANTIBODY, 4TH GENERATION (01/18/2020 11:14 EDT) HIV 1 and 2 Negative Negative [facility] Antibody/p24 Comment: LABORATORY Antigen, 4th SERVICES Generation If acute HIV-1 infection is suspected in a high risk ??patient, submit plasma specimen for HIV-1 RNA quantitation test. Fourth Generation assay performed on the [facility] [employer]. Specimen Blood - Venous blood (substance) Performing Organization Address City/State/ZIP Code Phon e Number [facility] [address] [place] [address] SERVICES documented in this encounter Visit Diagnoses Not on filedocumented in this encounter Care Teams Finishing Tunnel Operator Relationship Specialty Start Date End Date Sadia Warner MD PCP - General 06/20/[address] [place] [phone] documented as of this encounter
--- OUTSIDE RECORDS SUMMARY | 2022-03-19 00:19 | XMS_ITS | Encounter Summary ---
:1995 Author Organization [facility] Address [address] [place] [address] Care Team Providers Name Role Phone Sadia Warner MD Primary Care Provider Encounter Details Date Type Department Care Team Description 11/24/2020 Lab Requisition [facility] Sadia Warner MD Encounter for general adult medical exam ination without abnormal findings; Pathology & [address] Encounter for s creening for malignant neoplasm of cervix; Laboratory Medicine [address] Encounter for screening for human papill omavirus (HPV) - [place], [place] [address] [facility] [address] [place], [place] [phone] [address] (Work) [phone] Social History Tobacco Use Types Packs/Day Years Used Date Never Smoker Alcohol Use Standard Drinks/Week Comments Yes 0 (1 standard drink = 0.6 oz pure alcoho l) Sex Assigned at Date Recorded Not on file documented as of this encounter Plan of Treatment Not on filedocumented as of this encounter Procedures Procedure Name Priority Date/Time Associated Diagnosis Comme nts PAP TEST Today 11/21/2020 11:30 Encounter for general Re sults for this EST adult medical procedure are in examination without the resu lts abnormal finding s section. Encounter for screening for malignant neoplasm of cervix Encounter for screening for human papillomavirus (HPV) documented in this encounter Results PAP TEST (11/21/2020 11:30 EST) Specimens A. Cervix and/or [facility] MEDICAL Endocervix , ThinPrep CENTER Imaging System with LABORATORY Manual Evaluation SERVICES Specimen Adequacy Satisfactory for Evaluation - transformation zone component present [facility] MEDICAL Scant squamous epithelial component [facility] General Negative for [facility] intraepithelial CENTER lesion or malignancy LABORATORY SERVICES Attestation . [facility] Electronically CENTER signed by HUSSEIN Mendieta CT(ASCP ) on SERVICES 12/01/2020 at 104 1 Clinical History See below [facility] SERVICES Performing Lab [facility] SERVICES Scanned Images [facility] SERVICES Specimen Pap Test - Cervix and/or Endocervix Performing Organization Address City/State/ZIP Code Phon e Number [facility] [address] [place] [address] SERVICES documented in this encounter Visit Diagnoses Diagnosis Encounter for general adult medical exam ination without abnormal findings Unspecified general medical examination Encounter for screening for malignant ne oplasm of cervix Screening for malignant neoplasm of the cervix Encounter for screening for human papill omavirus (HPV) Special screening examination for human papillomavirus (HPV) documented in this encounter Care Teams Sql Database Administrator Relationship Specialty Start Date End Date Sadia Warner MD PCP - General 06/20/[address] [place] [phone] documented as of this encounter
--- OUTSIDE RECORDS SUMMARY | 2022-03-19 00:19 | XMS_ITS | Encounter Summary ---
:1995 Author Organization [facility] Address [address] [place] [address] Care Team Providers Name Role Phone Sadia Taylor MD Primary Care Provider Encounter Details Date Type Department Care Team Description 05/04/2019 Results Only [facility]- Mehdi Lopez, HAY CHOPPER [phone] [address] [place] [address] Social History Tobacco Use Types Packs/Day Years Used Date Never Smoker Alcohol Use Standard Drinks/Week Comments Yes 0 (1 standard drink = 0.6 oz pure alcoho l) Sex Assigned at Date Recorded Not on file documented as of this encounter Plan of Treatment Not on filedocumented as of this encounter Procedures Procedure Name Priority Date/Time Associated Diagnosis Comme nts PAP TEST- RESULT Routine 05/04/2019 0:00 EDT Resu lts for this ONLY procedure are i n the results section. documented in this encounter Results PAP TEST- RESULT ONLY (05/04/2019 0:00 EDT) Pathology Report: CYTOPATHOLOGY REPORT [facility] Reports generated via electronic interface contain katerine ginal data; SERVICES however they are lacking the format of the original re port. Caution should be taken when reading/interpreting unfo rmatted reports. Name: ? CAMILLE ARROYO ? Accession #: ? [id number] : ? 1995 (Age: 3 3) ??F ?Collect Date: ? 2018 Location: ? [facility] ? Receive Date : ? 05/07/2019 Provider: ?MEHDI WINN HAY CHOPPER Copy to: ?SADIA TAYLOR MD ? Specimen/Source: ? Pap Test, Cervix, ThinPrep Imaging System with manual evaluation Last Menstrual Period: ? 04/24/19 Hormonal/Contraceptive Status: ? Intrauterine device Previous Gynecologic Pathology: ? ASC-US: 2017 Infection History: ? Pos for HPV: 2017 ? SPECIMEN ADEQUACY ? Satisfactory for Evaluation - transformation zone component present GENERAL CATEGORIZATION ? Negative for Intraepithelial Lesion or Malignan cy ? Document reviewed and electronically signed by: ? DEVANTE Mercer(ASCP) ? Report Date: ??05/11/2019 12:25 End of Report Specimen Performing Organization Address City/State/ZIP Code Phon e Number [facility] [address] [place] [address] SERVICES documented in this encounter Visit Diagnoses Not on filedocumented in this encounter Care Teams Continuous Crusher Operator Relationship Specialty Start Date End Date Sadia Taylor MD PCP - General 06/20/[address] [place] [phone] documented as of this encounter
--- OUTSIDE RECORDS SUMMARY | 2022-03-19 00:19 | XMS_ITS | Encounter Summary ---
:1995 Author Organization [facility] Address [address] [place] [address] Care Team Providers Name Role Phone Sadia Warner MD Primary Care Provider Encounter Details Date Type Department Care Team Description 10/30/2020 Lab Requisition [facility] Medical Center Outr Resulting Lab, Pathology & Laboratory Provider [facility] [address] [place] [address] Social History Tobacco Use Types Packs/Day Years Used Date Never Smoker Alcohol Use Standard Drinks/Week Comments Yes 0 (1 standard drink = 0.6 oz pure alcoho l) Sex Assigned at Date Recorded Not on file documented as of this encounter Plan of Treatment Not on filedocumented as of this encounter Procedures Procedure Name Priority Date/Time Associated Comments Diagnosis QUANTIFERON TB GOLD Routine 10/29/2020 14:55 Resu lts for this PLUS EST procedure are i n the results section. documented in this encounter Results QUANTIFERON TB GOLD PLUS (10/29/2020 14:55 EST) Quantiferon Negative Negative [facility] MED[facility] Interpretation Comment: CENTER LABORATORY No interferon-gamma response to M. tuberculosis antigens was detected. ??Infection with M. tuberculosis is unlikely. A single negative result does not exclude infection with M. tuberculosis. ??In patien SERVICES ts at high risk for M. tuber culosis infection, a second test should be considered in accordance with the 2017 ATS/IDSA/CDC Clinical Practice Guidelines for Diagnosis of Tuberculosis in Adults and Childr en. [Irish DOUGLAS et. al. Clin. Infect. Dis. 2017:64 ( 2) ??: 111-115]. Results were obtained with the Qiagen QuantiFERON TB G old Plus NENA. TB1 Ag minus Nil 0.00 IU/ml [facility] TB2 Ag minus Nil 0.00 IU/mL [facility] Specimen Blood - Venous blood (substance) Narrative [facility] - 11/03/2020 14:26 EST Results were obtained with the Qiagen Qu antiFERON-TB Gold Plus NENA. Performing Organization Address City/State/ZIP Code Phon e Number [facility] [address] [place] [address] SERVICES documented in this encounter Visit Diagnoses Not on filedocumented in this encounter Care Teams Caseworker Intake Relationship Specialty Start Date End Date Sadia Warner MD PCP - General 06/20/[address] [place] [phone] documented as of this encounter
--- OUTSIDE RECORDS SUMMARY | 2022-03-19 00:19 | XMS_ITS | Encounter Summary ---
:[address] [facility] Address [address] [place] [address] Care Team Providers Name Role Phone Sadia Warner MD Primary Care Provider Encounter Details Date Type Department Care Team Description 12/10/2019 Lab Requisition [facility] Unknown, Provider, Pathology & Laboratory [facility] [address] [facility] [place], [place] [id number] Social History Tobacco Use Types Packs/Day Years Used Date Never Smoker Alcohol Use Standard Drinks/Week Comments Yes 0 (1 standard drink = 0.6 oz pure alcoho l) Sex Assigned at Date Recorded Not on file documented as of this encounter Plan of Treatment Not on filedocumented as of this encounter Procedures Procedure Name Priority Date/Time Associated Comments Diagnosis SPEP, INCLUDES Routine 12/10/2019 11:06 Results f or this QUANTITATION OF EDT procedure ar e in MONOCLONAL SPIKE the results section. documented in this encounter Results SPEP, INCLUDES QUANTITATION OF MONOCLONAL SPIKE (12/10/2019 11:06 EDT) Total Protein 7.4 6.3 - 8.2 g/dL [facility] Albumin % 62.2 55.8 - 66.1 % [facility] Alpha-1 % 3.5 2.9 - 4.9 % [facility] Alpha-2 % 8.5 7.1 - 11.8 % [facility] Beta % 10.7 8.4 - 13.1 % [facility] Gamma % 15.1 11.1 - 18.8 % [facility] SPEP Comment No apparent [facility] monoclonal protein LABORATORY SERVICES seen on serum electrophoresisComm ent: See scanned/supplementa ry report. Specimen Blood - Venous blood (substance) Narrative This result has an attachment that is no t available. Performing Organization Address City/State/ZIP Code Phon e Number [facility] [address] [place] [address] SERVICES documented in this encounter Visit Diagnoses Not on filedocumented in this encounter Care Teams Disposal Operator Relationship Specialty Start Date End Date Sadia Warner MD PCP - General 06/20/[address] [place] [phone] documented as of this encounter
--- OUTSIDE RECORDS SUMMARY | 2022-03-19 00:19 | XMS_ITS | Encounter Summary ---
:1995 Author Organization [facility] Address [address] [place] [address] Care Team Providers Name Role Phone aSdia Warner MD Primary Care Provider Encounter Details Date Type Department Care Team Description 01/08/2020 Lab Requisition [facility] Unknown, Provider, Pathology & Laboratory [facility] [address] [place] [address] [place] [address] Social History Tobacco Use Types Packs/Day Years Used Date Never Smoker Alcohol Use Standard Drinks/Week Comments Yes 0 (1 standard drink = 0.6 oz pure alcoho l) Sex Assigned at Date Recorded Not on file documented as of this encounter Plan of Treatment Not on filedocumented as of this encounter Procedures Procedure Name Priority Date/Time Associated Comments Diagnosis CHLAMYDIA/N. Routine 01/07/2020 10:00 Results for this GONORRHOEAE AMPLIFIED EDT proced ure are in RNA the results section. documented in this encounter Results CHLAMYDIA/N. GONORRHOEAE AMPLIFIED RNA (01/07/2020 10:00 EDT) Pathologist Sig nature Gonococcus Result Negative Negative [facility] Chlamydia Result Negative Negative [facility] Specimen Swab - Entire wall of cervix (body struc ture) Performing Organization Address City/State/ZIP Code Phon e Number [facility] [address] [place] [address] SERVICES documented in this encounter Visit Diagnoses Not on filedocumented in this encounter Care Teams Procedure Analyst Relationship Specialty Start Date End Date Sadia Warner MD PCP - General 06/20/[address] [phone] documented as of this encounter
--- OUTSIDE RECORDS SUMMARY | 2022-03-19 00:19 | XMS_ITS | Encounter Summary ---
:[address] [facility] Address [address] [place] [address] Care Team Providers Name Role Phone Sadia Warner MD Primary Care Provider Reason for Visit Reason Comments Tailbone Pain pt reports falling on a rock 5 weeks ago at [facility], tail bone pain since then , not g etting better Encounter Details Date Type Department Care Team Description 05/01/2018 Emergency [facility] Stu Marroquin PA-C [address], [place] [id number] Low back sprain, Emergency Department - Emergency, MD Vijay initial encounter [facility] [place] (Primary Dx) [address] [place] [id number] Social History Tobacco Use Types Packs/Day Years Used Date Never Smoker Alcohol Use Standard Drinks/Week Comments Yes 0 (1 standard drink = 0.6 oz pure alcoho l) Sex Assigned at Date Recorded Not on file documented as of this encounter Last Filed Vital Signs Vital Sign Reading Time Taken Comments Blood Pressure 113/60 05/01/2018 1458 EDT Pulse 73 05/01/2018 1458 EDT Temperature 36.6 ??C (97.9 ??F) 05/01/2018 1458 EDT Respiratory Rate 16 05/01/2018 1458 EDT Oxygen Saturation 100% 05/01/2018 1458 EDT Inhaled Oxygen Concentration - - Weight 73.5 kg (162 lb) 05/01/2018 1124 EDT Height 165.1 cm (5' 5) 05/01/2018 1124 EDT Body Mass Index 26.96 05/01/2018 1124 EDT documented in this encounter Discharge Diagnoses Diagnosis S33.9XXA Sprain of unspecified parts of lumbar spine and pelvis, initial encounter-S33.9XXA[ICD-10-CM] W01.0XXA Fall on same level from slippin g, tripping and stumbling without subsequent striking against object, initial encount er-W01.0XXA[ICD-10-CM] Z88.0 Allergy status to penicillin-Z88.0 [ICD-10-CM] documented in this encounter Discharge Instructions InstructionsStu Marroquin PA - 05/01/2018 Continue tylenol and advil for pain. Return to the Emergency Department (ED) if your condition worsens, does not improve as expected, or for any other concerns. Specifically return if you have new or uncontrolled pain, worsening fever, difficulty breathing, vomiting, or are unable to drink fluids. AttachmentsThe following attachments cannot be sent through Care Everywhere. BACK: STRAIN (DIVEHI)documented in this encounter Discharge Disposition Disposition Code Departure Means Destination Comments Home or Self Care [facility] documented in this encounter ED Notes Stu Marroquin PA - 05/01/2018 1403 EDT DOS: 05/01/2018 Chief Complaint Patient presents with ??? Tailbone Pain pt reports falling on a rock 5 weeks ago at [facility], tail bone pain since then , not getting better HPI The patient is a 22 y.o. female who presents today with Tailbone Pain (pt reports falling on a rock 5 weeks ago at [facility], tail bone pain since then , not getting better) HPI Patient is a 22-year-old female who is otherwise healthy and fell approximately 5 weeks ago onto [place]. Patient has been slowly getting progressively better until this a.m. when she started having the pain. Her pain is now in her low back and is worse with sitting. She denies having any loss ofbowel or bladder control any numbness tingling or weakness. She denies having any fevers any chills and abdominal pain. Review of Systems Review of Systems Review of systems: Constitutional: No fevers/chills Head/eyes/ears/nose/throat: No nosebleed/eyepain Respiratory: No shortness of breath Cardiologic: No chest pain Gastrointestinal: No abdominal pain/nausea/vomiting/diarrhea Genitourinay: No dysuria Muscle: + back pain Skin: No rash Neurological: No Headache Hematologic: No easy bruisability Psychologic: No confusion Physical Exam: Chief complaint reviewed Vitals signs reviewed Nurses note reviewed Well developed Head/eyes/ears/nose/throat:Normocephalic Conjunctiva normal Neck:supple Muscle: Low back: Positive for tenderness to palpation over the L5 spinous process. Patient also has reproducible pain over palpation of her coccyx. Patient is neurovascularly intact distally. Neurologic: no focal neurological deficits Skin:warm and dry Psychological:Mood /affect normal Allergies Allergen Reactions ??? Penicillins GI upset Vital Signs Temp: 36.6 ??C (97.9 ??F) Pulse: 77 Resp: 16 SpO2: 100 % BP: 112/65 BP Device: BP Machine O2 Device: None (Room air) Physical Exam RESULTS EKG orders: None Radiology orders: L SPINE 2-3 VIEWS Imaging Reviewed. I have independently reviewed the images. There are no significant abnormalities ED Lab Results Labs Reviewed POCT URINE DIPSTICK, CLINITEK - Abnormal Result Value Status Color LIGHT YELLOW Final Clarity, UA CLOUDY Final Glucose Neg Final Bilirubin Neg Final Ketones Neg Final Specific Mcgregor 1.020 Final Blood Neg Final pH 7.0 Final Protein Neg Final Urobilinogen 0.2 Final Nitrite Neg Final Leuk Esterase Trace (*) Final Tech ID [id number] Final POCT TEST, CLINITEK UPT Result Neg Final Tech ID [id number] Final Relevant Data Procedures ED COURSE patient in no apparent distress comfortable laying in bed. No complaint of abdominal pain vaginal discharge or painful intercourse. Patient requesting a note for work secondary to her pain with sitting. A medical screening exam was performed. ASSESSMENT AND PLAN Final diagnoses: None DISPOSITION: No disposition on file The patient's pain was managed to an adequate level weighing risk vs. benefit of further medications. Upon departure from the Emergency Department, the patient's pain was 3 on a zero to ten scale. Any further pain treatment will be at the discretion of the provider following up with the patient based on their clinical assessment. Condition at departure from the Emergency Department: Improved PCP: Sadia Goel 05/01/2018 14:03 No flowsheet data found. Brooke mata, BRENDA - 05/01/2018 1344 EDT Patient is resting quietly with no complaints. documented in this encounter Plan of Treatment Not on filedocumented as of this encounter Procedures Procedure Name Priority Date/Time Associated Diagnosis Comme nts L SPINE 2-3 VIEWS STAT 05/01/2018 13:43 Result s for this EDT procedure are i n the results section. POCT URINE STAT 05/01/2018 13:30 Results for this DIPSTICK, CLINITEK EDT procedure are in the results section. POCT STAT 05/01/2018 13:29 Results f or this TEST, CLINITEK EDT procedure are in the results section. documented in this encounter Results L SPINE 2-3 VIEWS (05/01/2018 13:43 EDT) Anatomical Region Laterality Modality Other Specimen Narrative [facility] - 05/01/2018 15:12 EDT L SPINE 2-3 VIEWS ??05/01/2018 1:43 PM Clinical History: low back pain after fall Comparison: No priors. TECHNIQUE: Upright AP and lateral views of the lumbar spine were obtained. Findings: No obvious fracture is seen. Vertebral b ayad heights and alignment are maintained. No radiographic soft tis kaylan swelling. The visualized bowel gas pattern is unre markable. Incidental note is made of an IUD in the pelvis. IMPRESSION: Normal exam. I have personally reviewed the images an d the above interpretation and agree with the findings. Procedure Note Anushka Mcnair MD - 05/01/2018 L SPINE 2-3 VIEWS 05/01/2018 1:43 PM Clinical History: low back pain after fall Comparison: No priors. TECHNIQUE: Upright AP and lateral views of the lumbar spine were obtained. Findings: No obvious fracture is seen. Vertebral b ayad heights and alignment are maintained. No radiographic soft tis kaylan swelling. The visualized bowel gas pattern is unre markable. Incidental note is made of an IUD in the pelvis. IMPRESSION: Normal exam. I have personally reviewed the images an d the above interpretation and agree with the findings. Performing Organization Address [facility]/ZIP Code Phon e Number [facility] (ABNORMAL) POCT URINE DIPSTICK, CLINITEK (05/01/2018 13:30 EDT) Color LIGHT YELLOW [facility] Clarity, UA CLOUDY [facility] Glucose Neg Neg [facility] Bilirubin Neg Neg [facility] Ketones Neg [facility] SERVICES Specific Mcgregor 1.020 1.001 - 1.035 [facility] Blood Neg [facility]ORY SERVICES pH 7.0 4.6 - 8.0 [facility] Protein Neg [facility] SERVICES Urobilinogen 0.2 0.2 - 1.0 [facility] LABORATORY SERVICES Nitrite Neg [facility] SERVICES Leuk Esterase Trace (A) [facility] LABORATORY textile screen maker ID [id number]: [facility] Test performed at LABORATORY Emergency SERVICES Department Specimen Urine (substance) - Urine Performing Organization Address [facility]/ZIP [facility] Phon e Number [facility] [address] [place] [address] SERVICES POCT TEST, CLINITEK (05/01/2018 13:29 EDT) Pathologist Sig nature UPT Result Neg [facility] LABORATORY textile screen maker ID [id number]: [facility] Test performed at LABORATORY SERVICES Emergency Department Specimen Urine (substance) - Urine Performing Organization Address City/[facility]/ZIP [facility] [address] [place] [address] SERVICES documented in this encounter Visit Diagnoses Diagnosis Low back sprain, initial encounter - Ava steven documented in this encounter Care Teams Rubber Compounder Supervisor Relationship Specialty Start Date End Date Sadia Warner MD PCP - General 06/20/[address] [place] [phone] documented as of this encounter
--- OUTSIDE RECORDS SUMMARY | 2022-03-19 00:19 | XMS_ITS | Encounter Summary ---
:1995 Author Organization [facility] Address [address] [place] [address] Care Team Providers Name Role Phone Sadia Warner MD Primary Care Provider Encounter Details Date Type Department Care Team Description 08/04/[address] [facility] Outr Resulting Lab, Pathology & Laboratory Provider [facility] [address] [place] [address] Social History Tobacco Use Types Packs/Day Years Used Date Never Smoker Alcohol Use Standard Drinks/Week Comments Yes 0 (1 standard drink = 0.6 oz pure alcoho l) Sex Assigned at Date Recorded Not on file documented as of this encounter Plan of Treatment Not on filedocumented as of this encounter Procedures Procedure Name Priority Date/Time Associated Diagnosis Comme nts COVID-19 TEST [facility] Today 08/03/2021 13:15 LAB PCR EST COVID-19 TESTING Routine 08/03/2021 13:15 Results for this EST procedure are i n the results section. documented in this encounter Results COVID-19 TEST [facility] LAB PCR (08/03/2021 13:15 EST) Specimen Swab Performing Organization Address City/State/ZIP Code Phon e Number [facility] [address] [place] [address] SERVICES COVID-19 TESTING (08/03/2021 13:15 EST) COVID-19 rt-PCR Negative Negative [facility] Result Comment: [facility] This test has not been FDA c leared or approved. This test has been authorized by FDA under an EUA for use by authorized laboratories. This test has been authorized only for detection of nucleic acid fro SERVICES m 2019-nCoV, not for any oth er viruses or pathogens. This test is only authorized for the duration of the declaration that circumstances exist justifying the authorization of emergency use of in vitro d iagnostic tests for detectio n and/or diagnosis of 2019-nCoV under section 564(b)(1) of Act, 21 U.S.C ?? 360bbb-3(b) (1), unless the authorization is terminated or revoked sooner. Negative results do not prec lude 2019-nCoV infection and should not be used as the sole basis for treatment or other patient management decisions. Negative results must be combined with clinical observa tions, patient history, and epidemiological informatio n. Performed on the Shopatronher Fusion instrument Performing Lab [place] [facility] Lab [facility] SERVICES Specimen Swab Performing Organization Address City/State/ZIP Code Phon e Number [facility] [address] [place] [address] SERVICES documented in this encounter Visit Diagnoses Not on filedocumented in this encounter Care Teams Paid Internship Relationship Specialty Start Date End Date Sadia Warner MD PCP - General 06/20/[address] [place] [phone] documented as of this encounter
--- OUTSIDE RECORDS SUMMARY | 2022-03-19 00:19 | XMS_ITS | Encounter Summary ---
:1995 Author Organization [facility] Address [address] [place] [address] Care Team Providers Name Role Phone Sadia Warner MD Primary Care Provider Encounter Details Date Type Department Care Team Description 04/27/2021 Lab Requisition [facility] Outr Resulting Lab, Pathology & Laboratory Provider [facility] [address] [place] [id number] Social History Tobacco Use Types Packs/Day Years Used Date Never Smoker Alcohol Use Standard Drinks/Week Comments Yes 0 (1 standard drink = 0.6 oz pure alcoho l) Sex Assigned at Date Recorded Not on file documented as of this encounter Plan of Treatment Not on filedocumented as of this encounter Procedures Procedure Name Priority Date/Time Associated Comments Diagnosis CHLAMYDIA/N. Routine 04/27/2021 11:45 Results for this GONORRHOEAE AMPLIFIED EDT proced ure are in RNA the results section. documented in this encounter Results CHLAMYDIA/N. GONORRHOEAE AMPLIFIED RNA (04/27/2021 11:45 EDT) Pathologist Sig nature Gonococcus Result Negative Negative [facility] Chlamydia Result Negative Negative [facility] SERVICES Specimen Swab - Entire wall of cervix (body struc ture) Performing Organization Address City/State/ZIP Code Phon e Number [facility] [address] [place] [address] SERVICES documented in this encounter Visit Diagnoses Not on filedocumented in this encounter Care Teams Screw Machine Hand Relationship Specialty Start Date End Date Sadia Warner MD PCP - General 06/20/[address] [place] [phone] documented as of this encounter
--- OUTSIDE RECORDS SUMMARY | 2022-03-19 00:19 | XMS_ITS | Encounter Summary ---
:1995 Author Organization [facility] Address [address] [place] [address] Care Team Providers Name Role Phone Sadia Warner MD Primary Care Provider Encounter Details Date Type Department Care Team Description 01/18/2020 Lab Requisition [facility] Unknown, Provider, Pathology & Laboratory [facility] [address] [place] [address] [place] [address] Social History Tobacco Use Types Packs/Day Years Used Date Never Smoker Alcohol Use Standard Drinks/Week Comments Yes 0 (1 standard drink = 0.6 oz pure alcoho l) Sex Assigned at Date Recorded Not on file documented as of this encounter Plan of Treatment Not on filedocumented as of this encounter Procedures Procedure Name Priority Date/Time Associated Diagnosis Comme nts HOLD SST Today 01/18/2020 11:14 Results for this EDT procedure are i n the results section. HEPATITIS C AB W Today 01/18/2020 11:14 Results for this REFLEX TO HCV RNA EDT procedure are in BY PCR the results section. HEPATITIS B SURFACE Today 01/18/2020 11:14 Resu lts for this ANTIGEN EDT procedure are i n the results section. documented in this encounter Results HOLD SST (01/18/2020 11:14 EDT) Pathologist Sig nature Hold Hold [facility] Specimen Blood - Venous blood (substance) Performing Organization Address City/State/ZIP Code Phon e Number [facility] [address] [place] [address] SERVICES HEPATITIS B SURFACE ANTIGEN (01/18/2020 11:14 EDT) Pathologist Sig nature Hep B Surface Ag Negative Negative [facility] SERVICES Specimen Blood - Venous blood (substance) Performing Organization Address City/[facility]/ZIP Code Phon e Number [facility] [address] [place] [address] SERVICES HEPATITIS C AB W REFLEX TO HCV RNA BY PCR (01/18/2020 11:14 EDT) Pathologist Sig nature Hep C Antibody Negative Negative [facility] ORY SERVICES Specimen Blood - Venous blood (substance) Performing Organization Address City/[facility] Code Phon e Number [facility] [address] [place] [address] SERVICES documented in this encounter Visit Diagnoses Not on filedocumented in this encounter Care Teams Community Center Coordinator Relationship Specialty Start Date End Date Sadia Warner MD PCP - General 06/20/[address] [place] [phone] documented as of this encounter
--- OUTSIDE RECORDS SUMMARY | 2022-03-19 00:19 | XMS_ITS | Encounter Summary ---
:1995 Author Organization [facility] Address [address] [place] [address] Care Team Providers Name Role Phone Sadia Warner MD Primary Care Provider Encounter Details Date Type Department Care Team Description 03/10/2020 Lab Requisition [facility] Outr Resulting Lab, Pathology & Laboratory Provider [facility] [address] [place] [address] Social History Tobacco Use Types Packs/Day Years Used Date Never Smoker Alcohol Use Standard Drinks/Week Comments Yes 0 (1 standard drink = 0.6 oz pure alcoho l) Sex Assigned at Date Recorded Not on file documented as of this encounter Plan of Treatment Not on filedocumented as of this encounter Procedures Procedure Name Priority Date/Time Associated Comments Diagnosis CHLAMYDIA/N. Routine 03/10/2020 11:30 Results for this GONORRHOEAE AMPLIFIED EDT proced ure are in RNA the results section. documented in this encounter Results CHLAMYDIA/N. GONORRHOEAE AMPLIFIED RNA (03/10/2020 11:30 EDT) Pathologist Sig nature Gonococcus Result Negative Negative [facility] Chlamydia Result Negative Negative [facility] Specimen Swab - Entire endocervix (body structure ) Performing Organization Address City/State/ZIP Code Phon e Number [facility] [address] [place] [address] SERVICES documented in this encounter Visit Diagnoses Not on filedocumented in this encounter Care Teams Transit Mixer Operator Relationship Specialty Start Date End Date Sadia Warner MD PCP - General 06/20/[address] [place] [phone] documented as of this encounter
--- OUTSIDE RECORDS SUMMARY | 2022-03-19 00:19 | XMS_ITS | Encounter Summary ---
:1995 Author Organization [facility] Address [address] [place] [address] Care Team Providers Name Role Phone Sadia Warner MD Primary Care Provider Encounter Details Date Type Department Care Team Description 02/25/2022 Lab Requisition [facility] Outr Resulting Lab, Pathology & Laboratory Provider [facility] [address] [place] [address] Social History Tobacco Use Types Packs/Day Years Used Date Never Smoker Alcohol Use Standard Drinks/Week Comments Yes 0 (1 standard drink = 0.6 oz pure alcoho l) Sex Assigned at Date Recorded Not on file documented as of this encounter Plan of Treatment Not on filedocumented as of this encounter Procedures Procedure Name Priority Date/Time Associated Diagnosis Comme nts COVID-19 TEST [facility] Today 02/25/2022 10:40 LAB PCR EDT COVID-19 TESTING Routine 02/25/2022 10:40 Results for this EDT procedure are i n the results section. documented in this encounter Results COVID-19 TEST [facility] LAB PCR (02/25/2022 10:40 EDT) Specimen Swab Performing Organization Address City/State/ZIP Code Phon e Number [facility] [address] [place] [address] SERVICES COVID-19 TESTING (02/25/2022 10:40 EDT) COVID-19 rt-PCR Negative Negative [facility] Result Comment: [facility]ENTER [facility] This test [...] and epidemiological informatio n. Performed on the Speedyboyher Fusion instrument Performing Lab [place] [facility] Lab [facility] SERVICES Specimen Swab Performing Organization Address City/State/ZIP Code Phon e Number [facility] [address] [place] [address] SERVICES documented in this encounter Visit Diagnoses Not on filedocumented in this encounter Care Teams Bias Cutter Helper Relationship Specialty Start Date End Date Sadia Warner MD PCP - General 06/20/[address] [place] [phone] documented as of this encounter
--- OUTSIDE RECORDS SUMMARY | 2022-03-19 00:19 | XMS_ITS | Encounter Summary ---
:[address] [facility] Address [address] [place] [address] Care Team Providers Name Role Phone Sadia Warner MD Primary Care Provider Encounter Details Date Type Department Care Team Description 07/15/2021 Lab Requisition [facility] Outr Resulting Lab, Pathology & Laboratory Provider [facility] [address] [place], [place] [id number] Social History Tobacco Use Types Packs/Day Years Used Date Never Smoker Alcohol Use Standard Drinks/Week Comments Yes 0 (1 standard drink = 0.6 oz pure alcoho l) Sex Assigned at Date Recorded Not on file documented as of this encounter Plan of Treatment Not on filedocumented as of this encounter Procedures Procedure Name Priority Date/Time Associated Diagnosis Comme nts COVID-19 TEST [facility] Today 07/15/2021 9:30 EDT LAB PCR COVID-19 TESTING Routine 07/15/2021 9:30 EDT Resu lts for this procedure are i n the results section. documented in this encounter Results [facility] (07/15[facility] 9[facility]30 EDT) Specimen Swab - Entire nasopharynx (body structur e) Performing Organization Address City/State/ZIP Code Phon e Number [facility] [address] [place] [address] SERVICES COVID-19 TESTING (07/15/2021 9:30 EDT) COVID-19 rt-PCR Negative Negative [facility] Result Comment: [facility]ENTER [facility] This [...] and epidemiological informatio n. Performed on the TerraPassher Fusion instrument Performing Lab [place] [facility] Lab [facility] SERVICES Specimen Swab Performing Organization Address City/State/ZIP Code Phon e Number [facility] [address] [place] [address] SERVICES documented in this encounter Visit Diagnoses Not on filedocumented in this encounter Care Teams Junior Media Buyer Relationship Specialty Start Date End Date Sadia Warner MD PCP - General 06/20/[address] [place] [phone] documented as of this encounter
--- OUTSIDE RECORDS SUMMARY | 2022-03-19 00:19 | XMS_ITS | Encounter Summary ---
:1995 Author Organization [facility] Address [address] [place] [address] Care Team Providers Name Role Phone Sadia Taylor MD Primary Care Provider Encounter Details Date Type Department Care Team Description 09/22/2018 Results Only [facility] Sadia Taylor MD [phone] [place] [address] (Wo rk) Social History Tobacco Use Types [...] Diagnosis Comme nts PAP TEST- RESULT Routine 09/22/2018 0:00 EST Resu lts for this ONLY procedure are i n the results section. documented in this encounter Results PAP TEST- RESULT ONLY (09/22/2018 0:00 EST) Pathology Report: CYTOPATHOLOGY REPORT [facility] Reports generated via electronic interface contain katerine ginal data; SERVICES however they are lacking the format of the original re port. Caution should be taken when reading/interpreting unfo rmatted reports. Name: ? CAMILLE ARROYO ? Accession #: ? [id number] : ? 1995 (Age: 3 2) ??F ?Collect Date: ? 08/27 Location: ? [facility] ? Receive Date : ? 09/25/2018 Provider: ?SADIA TAYLOR MD Copy to: ? Specimen/Source: ? Pap Test, Cervix, ThinPrep Imaging System with manual evaluation Last Menstrual Period: ? 2018 Other: ? Additional clinical information: Z00.00 Z12.4 Z11.51 ? SPECIMEN ADEQUACY ? Unsatisfactory for Evaluation, - insufficient numbers of squamous epith elial cells (less than 10% of expected cellularity) GENERAL CATEGORIZATION ? Specimen processed and examined, but unsatisfac tory for evaluation of epithelial abnormality. Recommend Pap test in 2- 4 months as stated in ASCCP's 2012 Updated Guidelines. HPV testing will not be performed due to the potential for false negative results. ? Document reviewed and electronically signed by: ? GRICEL De Luna(ASCP) ? Report Date: ??09/28/2018 15:30 End of Report Specimen Performing Organization Address City/State/ZIP Code Phon e Number [facility] [address] [place] [address] SERVICES documented in this encounter Visit Diagnoses Not on filedocumented in this encounter Care Teams Pro Shop Attendant Relationship Specialty Start Date End Date Sadia Taylor MD PCP - General 06/20/[address] [place] [phone] documented as of this encounter
--- OUTSIDE RECORDS SUMMARY | 2022-03-19 00:19 | XMS_ITS | Encounter Summary ---
:1995 Author Organization [facility] Address [address] [place] [address] Care Team Providers Name Role Phone Sadia Warner MD Primary Care Provider Encounter Details Date Type Department Care Team Description 09/28/2021 Lab Requisition [facility] Outr Resulting Lab, Pathology & Laboratory Provider General acute hospital [address] [place] [address] Social History Tobacco Use Types [...] Diagnosis Comme nts COVID-19 TEST [facility] Today 09/28/2021 8:37 EST LAB PCR COVID-19 TESTING Routine 09/28/2021 8:37 EST Resu lts for this procedure are i n the results section. documented in this encounter Results COVID-19 TEST [facility] PCR (09/28/2021 8:37 EST) Specimen Swab Performing Organization Address City/State/ZIP Code Phon e Number [facility] [address] [place] [address] SERVICES COVID-19 TESTING (09/28/2021 8:37 EST) COVID-19 rt-PCR Negative Negative [facility] Result Comment: CENTER LABOR[facility]ORY This [...] and epidemiological informatio n. Performed on the [employer] Fusion instrument Performing Lab [place] [facility] Lab [facility] SERVICES Specimen Swab Performing Organization Address City/State/ZIP Code Phon e Number [facility] [address] [place] [address] SERVICES documented in this encounter Visit Diagnoses Not on filedocumented in this encounter Care Teams Academic Affairs Vice President Relationship Specialty Start Date End Date Sadia Warner MD PCP - General 06/20/[address] [place] [phone] documented as of this encounter
--- NOTE | 2022-03-23 | DI.US_ITS ---
Exam(s) US ABDOMEN EXAM: US ABDOMEN CLINICAL HISTORY: NAUSEA, POSTPRANDIAL,R11.0 TECHNIQUE: Ultrasound abdomen performed using standard protocol. COMPARISON: US US PELVIS TRANSVAGINAL from 03/05/2019 FINDINGS: ABDOMINAL AORTA AND IVC: Visualized portions normal caliber. PANCREAS: Normal where visualized. LIVER: Normal. Hepatopedal flow in the Portal Vein. GALLBLADDER:No evidence of cholelithiasis. No evidence of wall thickening. No pericholecystic fluid i dentified. BILIARY SYSTEM: Common bile duct measures < 7 mm. No intrahepatic biliary ductal dilation. WILKERSON'S SIGN: Negative. KIDNEYS: Kidneys are symmetric in size. No evidence of renal calculi. No evidence of hydronephrosis. No renal mass or cyst identified. SPLEEN: Not enlarged. ASCITES: None seen. IMPRESSION: Normal sonographic appearance of the upper abdomen. DATA REPOSITORY:
== END ==
PROVIDERS: PCP Family Medicine; Visit Provider Family Medicine
DX: R11.0 Nausea (principal)
CPT/HCPCS: 76700

== ENCOUNTER 2022-06-01 14:11 | Outpatient (CLI) | payer MEDICAID, SELFPAY ==
--- NOTE | 2022-06-01 13:45 | DI.RAD_ITS ---
Exam(s) XR KNEE LT 3V AP,LAT,TONA EXAM: XR KNEE LT 3V AP,LAT,TONA CLINICAL HISTORY: pain in knee. TECHNIQUE: 2D digital imaging was performed of the left knee. Three images were obtained. Merchant ,AP, and lateral views were obtained. COMPARISON: CR LEFT KNEE 3 VIEW COMPLETE from 09/09/2011 CR XR KNEE RT 3V AP,LAT,TONA from 06/01/2022 FINDINGS: BONES: No acute fracture is present. No bony destructive lesion is seen. JOINTS: The knee is normally aligned. No joint effusion is seen. Tiny well-circumscribed osseous frag ments are seen associated with the anterior tibial tuberosity and the patellar ligament. These appea r old. There is mild swelling of the soft tissues anterior to the tibial tuberosity. SOFT TISSUE: Normal. IMPRESSION: 1. No acute fracture or dislocation. 2. If there is concern for internal derangement an MRI may be obtained for further evaluation. DATA REPOSITORY: RADIATION DOSE DELIVERED:
--- NOTE | 2022-06-01 14:00 | DI.RAD_ITS ---
Exam(s) XR KNEE RT 3V AP,LAT,TONA EXAM: XR KNEE RT 3V AP,LAT,TONA CLINICAL HISTORY: pain in knee. TECHNIQUE: 2D digital imaging was performed of the right knee. Three views obtained. AP, lateral, a nd Merchant views were obtained. COMPARISON: CR LEFT KNEE 3 VIEW COMPLETE from 09/09/2011 FINDINGS: BONES: No acute fracture is present. No bony destructive lesion is seen. Small well-circumscribed oss eous densities are seen anterior to the proximal tibia which appear old. There is mild soft tissue s welling anteriorly. JOINTS: The knee is normally aligned. No joint effusion is seen. SOFT TISSUE: Normal. IMPRESSION: Mild soft tissue swelling anterior to the proximal tibia. MRI of the knee may be considered to evalu ate for tendon injury or tendinosis. DATA REPOSITORY: RADIATION DOSE DELIVERED:
== END 2022-06-01 14:12 | disposition home or self-care (01) ==
LOC: DIORS 14:12
PROVIDERS: PCP Family Medicine; Referring Provider Family Medicine; Visit Provider Physician Assistant Surgical
DX: M25.561 Pain in right knee (principal); M25.562 Pain in left knee; M79.89 Other specified soft tissue disorders
CPT/HCPCS: 73562

== ENCOUNTER 2022-09-05 07:29 | Emergency (ER) | payer MEDICAID, SELFPAY ==
--- NOTE | 2022-09-05 07:30 | RT.EKG_ITS ---
APPROVED REPORT Exam: Resting ECG Reason for Exam: chest tightness Patient Location: E HR:92 bpm ECG Measurements Heart Rate [address] 161 P 57 QRSd 93 QRS 43 QT 353 T 27 QTc 436 Conclusion Sinus rhythm...normal P axis, V-rate 60- 99 Physician: no stemi
[2022-09-05 07:37] VITALS: BP 117/67; PULSE 99; RESP 18; TEMP 36.8; O2SAT 97
--- NOTE | 2022-09-05 08:00 | DI.RAD_ITS ---
Exam(s) XR PORTABLE CHEST AP EXAM: XR PORTABLE CHEST AP CLINICAL HISTORY: cough, fever TECHNIQUE: 2D digital imaging was performed of the chest. One image was obtained. An AP view was ob tained. COMPARISON: No exams were available for comparison FINDINGS: MEDIASTINUM: Normal. HEART: Normal. PULMONARY VASCULATURE: Normal. LUNGS: Clear. PLEURAL SPACE: No pleural effusion or pneumothorax. BONE:Within normal limits for the patient's age. OTHER FINDINGS:Normal. IMPRESSION: No acute pulmonary findings. DATA REPOSITORY: RADIATION DOSE DELIVERED:
--- NOTE | 2022-09-05 08:05 | ED.GENADUL_ITS ---
Discharge Plan Disposition Patient Disposition: Home Condition: Stable Discharge Details Clinical Impression: Fever, Chest pain, Influenza Primary Care Provider: Sadia Warner ED Provider: Pete Martins Home Meds and New Rx's Prescriptions: New oseltamivir 75 mg capsule 75 mg PO Q12H 5 Days Qty: 10 0RF Continued epinephrine 0.3 mg/0.3 mL auto-injector 0.3 mg IM ONCE PRN (Reason: anaphylaxis) Qty: 1 1RF prenat.vits,jan,evy-ises-pxnbf Tablet 1 tab PO DAILY fexofenadine [Effie Allergy] 60 mg tablet 60 mg PO BID calcium carb-D3-mag hdb96-dmvq [id number] uj-kpak-tu-mg tablet 1 tab PO DAILY Rx Instructions: administer with a meal ibuprofen 600 mg tablet 600 mg PO Q6H PRN (Reason: pain) Qty: 60 0RF acetaminophen [Tylenol] 325 mg tablet 650 mg PO ONCE PRN Discharge Instructions Instructions: Influenza (ED) Additional Instructions: you tested positive for the flu. Your cat scan did not show any concerning findings if not improving this week follow up with your primary care provider if you feel more ill, have worsening symptoms or persistent vomiting return to the emergency department Medical Decision Making 27 yo female comes in with several days of body aches, cough and sore throat and overnight developed a fever to 103. She took 800mg ibuprofen around 5am and is now afebrile. She denies rashes, abdominal pain, has had some nausea. She states she feels her unique is aching in addition to her body. She denies smoking, alcohol or drug use. She arrives stable, speaking in full sentences in no distress. Stable vitals, no hypoxia, clear lungs, no murmurs, soft nontender abdomen, no leg swelling or calf tenderness. Suspect viral illness, will obtain fluvid and cxr along with cbc, cmp and though her heart score is 0 and her symptoms seem infectious will obtain troponin. She is wells low, can't use perc due to her control, will obtain d dimer. pt stable, d dimer over 500, positive for flu, xray negative. She has some leukocytes in her urine, denies any symptoms consistent with uti, will wait for urine culture. Will obtain cta for pe given the d dimer over 500. cta negative, pt stable and reassuring vitals. Will d/c and advised to f/u with pcp if not improving, return precautions given Differential Diagnosis Differential Diagnosis: flu, covid, myocarditis Imaging Data Radiologic Study: Attestation: I personally reviewed and interpreted this imaging study as follows: Imaging: X-Ray Radiologist's impression: no acute findings Radiologic Study #2: Attestation: I personally reviewed and interpreted this imaging study as follows: Imaging: CT Scan Radiologist's impression: 1. No evidence of pulmonary embolus to the segmental level. 2. No aneurysm of the aorta. 3. No dissection of the aorta. Lab Data Lab results reviewed: Yes I reviewed the patient's lab results. ECG Data Attestation: I personally reviewed and interpreted this ECG (s) as follows: Prior ECG tracings: not available for review Interpretation: sinus rhythm, rate of 92, pr [address] t wave ischemic findings Sign Out No HPI General Mode of arrival: ambulatory . Date/Time Provider Initiated Documentation: 09/05/22 07:32 . Limitations to Documentation: no limitations . Information obtained by: patient . History of Present Illness 27 year old F presents to the emergency department with the chief complaint of fever, described as moderate, Patient started experiencing this day(s) (1) and it has been intermittent. No relieving factors improve symptom(s), No exacerbating factors reported . Patient notes cough. Patient did receive the following treatments prior to arrival, none Related Data Home Medications Medication Instructions Recorded Confirmed prenat.vits,jan,jef-wiit-tthoq 1 tab PO DAILY 12/31/19 09/05/22 acetaminophen 325 mg tablet 650 mg PO ONCE PRN 03/10/20 09/05/22 (Tylenol) ibuprofen 600 mg tablet 600 mg PO Q6H PRN pain #60 tabs 11/30/20 09/05/22 epinephrine 0.3 mg/0.3 mL 0.3 mg (0.3 mL) IM ONCE PRN 05/20/21 09/05/22 injection, auto-injector anaphylaxis #1 ea calcium carb-vit [id number]-[id number]-tsaq 1 tab PO DAILY 06/01/22 09/05/22 333 mg-200 unit-133 mg-5 mg tablet fexofenadine 60 mg tablet (Effie 60 mg PO BID 06/01/22 09/05/22 Allergy) oseltamivir 75 mg capsule 75 mg PO Q12H 5 days #10 caps 09/05/22 Previous Rx's Medication Instructions Recorded ibuprofen 600 mg tablet 600 mg PO Q6H PRN pain #60 tabs 11/30/20 epinephrine 0.3 mg/0.3 mL 0.3 mg (0.3 mL) IM ONCE PRN 05/20/21 injection, auto-injector anaphylaxis #1 ea oseltamivir 75 mg capsule 75 mg PO Q12H 5 days #10 caps 09/05/22 Allergies Allergy/AdvReac Type Severity Reaction Status Date / Time venom-honey bee Allergy Intermediate Swelling/Ed Verified 09/05/22 07:40 [bee venom (honey bee)] anastacio perfume Allergy Mild Verified 09/05/22 07:40 lactose AdvReac Intermediate Verified 09/05/22 07:40 Penicillins AdvReac Intermediate GI Verified 09/05/22 07:40 upset/Headache DUST Allergy Mild Uncoded 09/05/22 07:40 FOOD DYE Allergy Mild Uncoded 09/05/22 07:40 Synthetic dyes AdvReac Intermediate Uncoded 09/05/22 07:40 General Stated Complaint: GenMedical ALEC: 3 Review of Systems All systems reviewed & are unremarkable except as noted in HPI and below ENT Ears, Nose, Mouth, and Throat: Denies change in voice Gastrointestinal Gastrointestinal: Denies abdominal pain and Denies vomiting Genitourinary Genitourinary: Denies dysuria Integumentary/Breasts Skin/Breast: Denies rash PFSH All Active Problems (Updated 09/05/22 @ 11:02 by Pete Martins MD) Fever (Acute) Chest pain (Acute) Influenza (Acute) Patellofemoral syndrome of both knees (Acute) Dysmenorrhea (Acute) Laceration of forearm, left, complicated (Acute) Recurrent UTI (Acute) Lower abdominal pain (Acute) Dysuria (Acute) UTI (urinary tract infection) (Acute) Abdominal pain (Acute) GERD (gastroesophageal reflux disease) (Chronic) Thalassemia (Acute) 11/2019 MCV 68.5 with previous dx of thalasemia. 12/2019 Nl hemoglobin electrophoresis. 02/2020 Dr. Perez has been consulted regarding further w/u. Chronic bladder pain (Chronic) Since 2017. Normal pelvic ultrasound. Multiple office evaluations for dysuria symptoms. Negative urine cultures. Urology consult suggested diagnosis of interstitial cystitis. 09/2018 pelvic pain symptoms increased after Mirena insertion. 10/21/2018 Mirena out Josefina inserted. IC (interstitial cystitis) (Acute 05/03/18) Hypertrophy of tonsils and adenoids (Acute 09/04/15) Contraception (Acute 04/06/16) 10/07/2020. Josefina IUD. 11/2021. OCPs Chronic tonsillitis and adenoiditis (Acute 09/04/15) Medical History (Updated 09/05/22 @ 11:02 by Pete Martins MD) Grace 11/2021 improved after OCPs initiated. Pelvic pain With associated bladder pain symptoms. Negative testing for STI's. depression anxiety and depression. Social stressors. Rectal bleeding 11/03/2020. Normal exam. Hemoccult negative Vaginal delivery 08/07/20. . Vasquez Hines. 5xxk1db. 39w2d. Retained placenta. Manual extraction. Social History (Updated 11/27/21 @ 08:20 by Izzy Holguin MD) Smoking/Tobacco Use Status: Never Smoking risk assessment performed?: Yes Alcohol Intake: never Drug use: Never Substance use type: does not use Adopted: Yes Household members: significant other, children and other Details: S-[employer]. 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 Female Reproductive History Menstrual control method: none History History 1 Para 0 Hx # Term Pregnancies 1 Multiple births 0 Hx # Pregnancies 0 Ectopic pregnancies 0 AB induced 0 Hx Number of Living Children 1 AB spontaneous 0 Past Pregnancies Del. Date GA/Weeks # Preg Succ Route Wgt Sex Labor Lgth Anesth esia Location Prov Complic 08/07/20 39 No vaginal 3883.885 g Male regional D r [facility] Delivery Date: 08/07/20 Last Updated by: Izzy Holguin M.D. retained placenta. manual extraction at bedside. Vasquez Hines. Exam Const General: no acute distress Orientation: alert HENMT Head: normal to inspection Ears: external ears normal General nose exam: external nose normal Mouth: moist mucous membranes Eyes General: appearance normal, both eyes and all related structures Neck Neck: normal visual inspection Resp Effort & Inspection: normal respiratory effort, able to speak in complete sentences and no audible wheezes Auscultation: clear to auscultation bilaterally Cardio Jugular venous pressure: no JVD Rate: regular rate Heart Sounds: no murmurs GI Palpation: soft and nontender Skin General skin exam: no rashes or lesions noted Neuro General: patient alert and patient oriented x3 Extrem General: normal to inspection Psych Mental Status: mental status grossly normal Course Vital Signs Vital signs: Vital Signs Temperature 36.8 C 09/05/22 07:37 Pulse 99 H 09/05/22 07:37 Respiratory Rate 18 09/05/22 07:37 Blood Pressure 117/67 09/05/22 07:37 Pulse Oximetry 97 09/05/22 07:37 Temperature 36.8 C 09/05/22 07:37 Temperature Source Oral 09/05/22 07:37 Pulse 99 H 09/05/22 07:37 Respiratory Rate 18 09/05/22 07:37 Respiratory Effort 09/05/22 07:41 Blood Pressure 117/67 09/05/22 07:37 Blood Pressure Position Sitting 09/05/22 07:37 Pulse Oximetry 97 09/05/22 07:37 Oxygen Delivery Method Room Air 09/05/22 07:37 Oxygen Flow Rate 0 09/05/22 07:37
[2022-09-05] MEDS: Normal Saline 1,000 ML 1000 ML IV (08:20)
[2022-09-05] MEDS: Ondansetron 4 MG/2 ML VIAL IVP (08:26)
[2022-09-05 08:27] VITALS: RESP 12
[2022-09-05 08:29] LABS: Abs Immature Grans 0.03 10^3/uL (0.0-0.06); Absolute Basophil Count 0.01 10^3/uL (0.0-0.2); Absolute Eosinophil Count 0.03 10^3/uL (0.0-0.7); Absolute Lymphocyte Count 1.11 10^3/uL (1.2-3.4); Absolute Monocyte Count 0.58 10^3/uL (0.1-0.8); Absolute Neutrophil Count 4.81 10^3/uL (1.2-6.7); Basophils % 0.2; Eosinophils % 0.5; HCT 40.2 % (36.0-46.0); Immature Grans % 0.5; Lymphocytes % 16.9; MCH 20.9 pg (27.0-33.0); MCHC 29.9 % (32.0-36.0); MCV 70 fL (80-95); MPV 10.3 fL (8.0-11.0); Monocytes % 8.8; Neutrophils % 73.1; Platelet Count 326 10^3/uL (130-400); RBC 5.75 10^6/uL (3.93-5.22); RDW 14.8 % (11.7-14.6); RDW-SD 36.4 fL; WBC 6.57 10^3/uL (4.4-10.8)
[2022-09-05] MEDS: Acetaminophen 500 MG TAB 1000 MG PO (08:30)
[2022-09-05 08:47] LABS: ALT 62 U/L (14-59); AST 36 U/L (15-37); Albumin 4.1 g/dL (3.4-5.0); Alkaline Phosphatase 67 U/L (46-116); Anion Gap 9.5 mmol/L (3-11); BUN 9 mg/dL (7-18); Bilirubin, Total 0.2 mg/dL (0.2-1.0); CO2 24.5 mmol/L (21.0-32.0); CREATININE 0.8 mg/dL (0.55-1.02); Calcium 8.7 mg/dL (8.5-10.1); Chloride 102 mmol/L (98-107); Estimated GFR 104.15 (mL/min/1.73m2); Glucose 106 mg/dL (74-106); Potassium 3.8 mmol/L (3.5-5.1); Sodium 136 mmol/L (136-145); Total Protein 7.9 g/dL (6.4-8.2); Troponin I < 50 ng/L (<or=60)
[2022-09-05 08:52] LABS: Diff Comment RBC Morph Reviewed; Microcytosis 2+
[2022-09-05 08:53] LABS: Poikilocytes 1+
[2022-09-05 08:53] LABS: COVID-19 PCR Negative (Negative); Influenza A PCR Positive (Negative); Influenza B PCR Negative (Negative); RSV PCR Negative (Negative)
[2022-09-05 08:55] LABS: Source Nasopharynx
[2022-09-05 09:28] LABS: Bilirubin Negative (Negative); Blood Negative (Negative); Clarity Clear (Clear); Glucose Negative (Negative); Ketones Negative (Negative); Leukocyte Esterase Small (Negative); Nitrite Negative (Negative); Specific Gravity 1.015 (1.005-1.025); Urobilinogen 0.2 EU/dL (Up TO 0.2)
[2022-09-05 09:35] LABS: Bacteria Rare HPF (Negative); C & S Indicated? Yes; Casts Negative LPF (Negative); Crystals Negative HPF (Negative); Epithelial Cells Few HPF (Negative); Mucus Negative (Negative); RBC Negative HPF (0-2)
--- NOTE | 2022-09-05 09:37 | DI.VRAD_ITS ---
PROCEDURE INFORMATION: Exam: XR Chest Exam date and time: 09/05/2022 8:45 AM Age: 27 years old Clinical indication: Other: Cough, fever TECHNIQUE: Imaging protocol: Radiologic exam of the chest. Views: 1 view. COMPARISON: No relevant prior studies available. FINDINGS: Lungs: Unremarkable. No consolidation. Pleural spaces: Unremarkable. No pleural effusion. No pneumothorax. Heart/Mediastinum: Unremarkable. No cardiomegaly. Bones/joints: Unremarkable. IMPRESSION: No acute findings. Dictated and Authenticated by: Kandi Nagy MD. Ordering:EULA Freeman MD
[2022-09-05 09:47] LABS: D-Dimer 577 ng/mlFEU (<500)
--- NOTE | 2022-09-05 09:57 | DI.CT_ITS ---
Exam(s) CT CHEST PE CTA EXAM: CT CHEST PE CTA CLINICAL HISTORY: chest pain, elevated d dimer. TECHNIQUE: Imaging Protocol: Axial CT angiography was performed with multi-slice acquisition and mu lti-planar and/or 3D reconstructions. CONTRAST MATERIAL: Intravenous: Omnipaque 350 contrast volume:100 mL COMPARISON: CR,XR XR PORTABLE CHEST AP from 09/05/2022 FINDINGS: Tracheobronchial tree: Patent where visualized. Pulmonary parenchyma: No consolidation or dominant measurable mass. No architectural distortion. Pulmonary Arteries: No evidence of filling defect to suggest pulmonary emboli. Mediastinum and Janeen: No dominant adenopathy or fluid collection. The esophagus is unremarkable. Visualized thyroid gland: Unremarkable. Pleura: No effusion or pneumothorax. Heart: The heart is not dilated. No coronary artery calcifications are seen. No pericardial effusion. Aorta: Thoracic aorta non-dilated. No evidence of dissection. Upper abdomen: Unremarkable. Soft tissues: Unremarkable. Bones: Within normal limits for the patient's age. IMPRESSION: No evidence of pulmonary embolism, thoracic aortic dissection or aneurysm. RADIATION DOSE DELIVERED: 457.4mGy.cm Total DLP DATA REPOSITORY: All CT scans at this facility are submitted to the National Radiology Data Registry (NRDR) Dose Index Registry (DIR) with the [employer] (ACR). RADIATION OPTIMIZATION: All CT scans at this facility use at least one of these dose optimization te chniques: automated exposure control; mA and/or kV adjustment per patient size (includes targeted exa ms where dose is matched to clinical indication); or iterative reconstruction.
[2022-09-05] MEDS: Normal Saline - Diluent 50 ML VIAL IV ×2 (10:23→10:24)
[2022-09-05] MEDS: Omnipaque 350 MG/ML 100 ML BTL IJ (10:23)
--- NOTE | 2022-09-05 10:47 | DI.VRAD_ITS ---
PROCEDURE INFORMATION: Exam: CTA Chest With Contrast Exam date and time: 09/05/2022 10:28 AM Age: 27 years old Clinical indication: Other: Chest pain, elevated d dimer TECHNIQUE: Imaging protocol: Computed tomographic angiography of the chest with contrast. 3D rendering (Not supervised by radiologist): MIP and/or 3D reconstructed images were created by the technologist. Radiation optimization: All CT scans at this facility use at least one of these dose optimization techniques: automated exposure control; mA and/or kV adjustment per patient size (includes targeted exams where dose is matched to clinical indication); or iterative reconstruction. Contrast material: OMNIPAQUE 320; Contrast volume: 100 ml; Contrast route: INTRAVENOUS (IV); COMPARISON: XR PORTABLE CHEST AP 09/05/2022 8:45 AM FINDINGS: Pulmonary arteries: No evidence of pulmonary embolus to the segmental level. Aorta: No aneurysm of the aorta. No dissection of the aorta. Lungs: Unremarkable. No consolidation. No masses. Pleural spaces: Unremarkable. No pneumothorax. No pleural effusion. Heart: Unremarkable. No cardiomegaly. No pericardial effusion. Lymph nodes: Unremarkable. No enlarged lymph nodes. Bones/joints: Unremarkable. No acute fracture. Soft tissues: Unremarkable. IMPRESSION: 1. No evidence of pulmonary embolus to the segmental level. 2. No aneurysm of the aorta. 3. No dissection of the aorta. Dictated and Authenticated by: Kandi Nagy MD. Ordering:EULA Freeman MD
[2022-09-05 11:12] VITALS: BP 93/50; PULSE 78; RESP 20; TEMP 36.7; O2SAT 99
== END 2022-09-05 11:17 | disposition home or self-care (01) ==
PROVIDERS: Emergency Provider Emergency Medicine; PCP Family Medicine
DX: J10.1 Influenza due to other identified influenza virus with other respiratory manifestations (principal); Z20.822 Contact with and (suspected) exposure to COVID-19
CPT/HCPCS: 36415; 71275; 80053; 81025; 87637; 93005; 96361; 96374; 99285; 71045; 81003; 81015; 83735; 84484; 85025; 85379; 87086; 93010; J2405; J3490

== ENCOUNTER 2023-02-11 15:25 | Outpatient (REF) | payer BC, MEDICAID, SELFPAY ==
[2023-02-11 15:52] LABS: Hemoglobin A1C 5.8 % (<5.7)
[2023-02-11 16:05] LABS: Anion Gap 8.4 mmol/L (3-11); BUN 10 mg/dL (7-18); CO2 27.6 mmol/L (21.0-32.0); CREATININE 0.8 mg/dL (0.55-1.02); Calcium 9.3 mg/dL (8.5-10.1); Chloride 104 mmol/L (98-107); Estimated GFR 104.15 (mL/min/1.73m2); Glucose 108 mg/dL (74-106); Sodium 140 mmol/L (136-145); TSH (W/Ref FT4) 0.73 uIU/mL (0.36-3.74)
== END 2023-02-11 15:26 | disposition home or self-care (01) ==
LOC: NCHCN 15:25
PROVIDERS: PCP Family Medicine; Visit Provider Family Medicine
DX: R73.03 Prediabetes (principal); R63.5 Abnormal weight gain
CPT/HCPCS: 80048; 83036; 84443

== ENCOUNTER → 2023-06-20 01:34 | Outpatient (CLI) | payer BC, SELFPAY ==
--- NOTE | 2023-06-20 13:36 | DI.RAD_ITS ---
Exam(s) XR CHEST 2V PA LATERAL EXAM: XR CHEST 2V PA LATERAL CLINICAL HISTORY: CHEST PAIN, PLEURITIC R07.89, WHEEZING, R06.2, LT SIDED INTERMITTENT CHEST. TECHNIQUE: 2D digital imaging was performed. COMPARISON: CR,XR XR PORTABLE CHEST AP from 09/05/2022 FINDINGS: 2 views: Heart size is normal. The mediastinum is not widened. Lungs are clear. No infiltrates nor pleural effusions. IMPRESSION: No acute pulmonary findings. DATA REPOSITORY: RADIATION DOSE DELIVERED:
== END ==
PROVIDERS: PCP Family Medicine; Visit Provider Family Medicine
DX: R07.89 Other chest pain (principal); R06.2 Wheezing
CPT/HCPCS: 71046

== ENCOUNTER → 2024-03-27 12:55 | Outpatient (CLI) | payer OTHER, SELFPAY ==
--- OUTSIDE RECORDS SUMMARY | 2024-03-27 12:56 | XMS_ITS | Continuity of Care Document ---
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 Name Role Phone Sadia Warner Primary Care Physician [phone] Encounter [email or web address] Date(s): 03/12/23 - 03/12/23 [facility] [address] [place] [address] Encounter Diagnosis Tendinopathy(Discharge Diagnosis) - 03/12/23 [place]-Schlatter's disease(Discharge Diagnosis) - 03/12/23 Discharge Disposition: Home or Self Care Attending Physician: Josie Dumont MD Admitting Physician: Josie Dumont MD Allergies, Adverse Reactions, Alerts Substance Reaction Severity Status penicillin Unknown Active Dust Unknown Active Bees/Stinging Insects Unknown Active Immunizations Given and Recorded Vaccine Date Status Refusal Reason SARS-CoV-2 (COVID-19) mRNA-1273 vaccine 12/23/20 R ecorded SARS-CoV-2 (COVID-19) mRNA-1273 vaccine 11/24/20 R ecorded Medications Albuterol (Eqv-ProAir HFA) 0 Refill(s) Start Date: 03/12/23 Status: Ordered fluconazole 0 Refill(s) Start Date: 03/12/23 Status: Ordered Vital Signs Most recent to oldest [Reference Range]: 1 Temperature Temporal Artery [36-38 Deg C ] 36.6 Deg C (03/12/23 12:35 PM) Peripheral Pulse Rate [60-100 bpm] 83 bp m (03/12/23 12:35 PM) Respiratory Rate [12-24 br/min] 16 br/mi n (03/12/23 12:35 PM) Blood Pressure [90-140/60-90 mmHg] 118/7 1mmHg (03/12/23 12:35 PM) Weight Dosing 72.50 kg (03/12/23 12:41 PM) Weight Estimated 72.50 kg (03/12/23 12:35 PM) Height/Length Dosing 165.000 cm (03/12/23 12:41 PM) Height/Length Estimated 165.000 cm (03/12/23 12:35 PM) Social History Social History Type Response Tobacco Never tobacco user T obacco Use:. Sex Female Hospital Discharge Instructions Patient Education 03/12/2023 13:11:58 Popliteus Tendinitis Popliteus Tendinitis Popliteus tendinitis is a knee condition that causes pain in the back of the knee. It results from damage or irritation to the tough cord of tissue at the back of the knee (popliteus tendon). Popliteus tendinitis is common in runners. What are the causes? This condition is caused by stress on the popliteus tendon. This can result from: ??? Training too hard. ??? Running too much without proper training. ??? Running downhill. What increases the risk? You are more likely to develop this condition if you: ??? Are a runner. ??? Have weak thigh muscles. ??? Have flat feet. What are the signs or symptoms? The main symptom of this condition is pain in the back of the knee and pain in the outside of the knee. Running downhill may make the pain worse. Other symptoms of this condition include: ??? Swelling behind the knee. ??? Tenderness when pressing behind the knee. ??? Cracking sound when the knee is moved. ??? Pain when bending the knee from a straightened position. ??? Pain when straightening the knee. How is this diagnosed? This condition may be diagnosed based on your symptoms, your medical history, and a physical exam. ??? During your exam, your health care provider may: ??? Check for tenderness behind your knee. ??? Order an ultrasound or an MRI to check for swelling in your tendon. How is this treated? This condition may be treated by: ??? Resting your knee until pain and swelling go down. ??? Avoiding activities that make pain worse. ??? Taking medicine to help with pain and swelling. ??? Having medicine injected into your knee. ??? Doing nfgim-ax-igltpw and strengthening exercises (physical therapy) when pain and swelling improve. ??? Wearing a wrap that applies pressure (compression bandage) around your knee during activity. In some cases, surgery may be needed. Follow these instructions at home: Managing pain, stiffness, and swelling ??? If directed, put ice on the area behind your knee. ??? Put ice in a plastic bag. ??? Place a towel between your skin and the bag. ??? Leave the ice on for 20 minutes, 2???3 times a day. ??? If directed, apply heat to the area behind your knee before you exercise. Use the heat source that your health care provider recommends, such as a moist heat pack or a heating pad. ??? Place a towel between your skin and the heat source. ??? Leave the heat on for 20???30 minutes. ??? Remove the heat if your skin turns bright red. This is especially important if you are unable to feel pain, heat, or cold. You may have a greater risk of getting burned. ??? Move your toes often to reduce stiffness and swelling. ??? Raise (elevate) your knee above the level of your heart while you are sitting or lying down. Activity ??? Return to your normal activities as told by your health care provider. Ask your health care provider what activities are safe for you. ??? Do exercises as told by your health care provider. ??? Wear a compression wrap when walking or running as told by your health care provider. General instructions ??? Take pmdy-ojo-xhsnyik and prescription medicines only as told by your health care provider. ??? Do not use any tobacco products, including cigarettes, e-cigarettes, or chewing tobacco. These can delay healing. If you need help quitting, ask your health care provider. ??? Keep all follow-up visits as told by your health care provider. This is important. How is this prevented? Warm up and stretch before being active. ??? Avoid running downhill. ??? Cool down and stretch after being active. ??? Give your body time to rest between periods of activity. ??? Make sure to use equipment that fits you. ??? Use a shoe insert (orthotic) if you have flat feet. This helps to support the arch of your foot. Orthotics can be purchased from a store or can be custom- made by your health care provider. ??? Do at least 150 minutes of moderate-intensity exercise each week, such as brisk walking or water aerobics. ??? Maintain physical fitness, including: ??? Strength. ??? Flexibility. ??? Cardiovascular fitness. ??? Endurance. Contact a health care provider if: ??? Your symptoms get worse. ??? Your symptoms do not improve. Summary ??? Popliteus tendinitis is a knee condition that causes pain in the back of your knee. ??? This condition is common in runners. ??? This condition is usually treated with rest, pain medicines, and physical therapy. In some cases, surgery may be needed. ??? You may help prevent this condition if you warm up and stretch before activity, avoid running downhill, and cool down and stretch after activity. This information is not intended to replace advice given to you by your health care provider. Make sure you discuss any questions you have with your health care provider. Document Revised: 01/04/2020 Document Reviewed: 07/18/2019 [employer] Patient Education ?? 2021 [employer]. 03/12/2023 13:11:43 Achilles Tendinitis Achilles Tendinitis Achilles tendinitis is inflammation of the tough, cord-like band that attaches the lower leg muscles to the heel bone (Achilles tendon). This is usually caused by overusing the tendon and the ankle joint. Achilles tendinitis usually gets better over time with treatment and caring for yourself at home. It can take weeks or months to heal completely. What are the causes? This condition may be caused by: ??? A sudden increase in exercise or activity, such as running. ??? Doing the same exercises or activities, such as jumping, over and over. ??? Not warming up calf muscles before exercising. ??? Exercising in shoes that are worn out or not made for exercise. ??? Having arthritis or a bone growth (spur) on the back of the heel bone. This can rub against thetendon and hurt it. ??? Age-related wear and tear. Tendons become less flexible with age and are more likely to be injured. What are the signs or symptoms? Common symptoms of this condition include: ??? Pain in the Achilles tendon or in the back of the leg, just above the heel. The pain usually gets worse with exercise. ??? Stiffness or soreness in the back of the leg, especially in the morning. ??? Swelling of the skin over the Achilles tendon. ??? Thickening of the tendon. ??? Trouble standing on tiptoe. How is this diagnosed? This condition is diagnosed based on your symptoms and a physical exam. You may have tests, including: ??? X-rays. ??? MRI. How is this treated? The goal of treatment is to relieve symptoms and help your injury heal. Treatment may include: ??? Decreasing or stopping activities that caused the tendinitis. This may mean switching to low-impact exercises like biking or swimming. ??? Icing the injured area. ??? Doing physical therapy, including strengthening and stretching exercises. ??? Taking NSAIDs, such as ibuprofen, to help relieve pain and swelling. ??? Using supportive shoes, wraps, heel lifts, or a walking boot (air cast). ??? Having surgery. This may be done if your symptoms do not improve after other treatments. ??? Using high-energy shock wave impulses to stimulate the healing process (extracorporeal shock wave therapy). This is rare. ??? Having an injection of medicines that help relieve inflammation (corticosteroids). This is rare. Follow these instructions at home: If you have an air cast: ??? Wear the air cast as told by your health care provider. Remove it only as told by your health care provider. ??? Loosen it if your toes tingle, become numb, or turn cold and blue. ??? Keep it clean. ??? If the air cast is not waterproof: ??? Do not let it get wet. ??? Cover it with a watertight covering when you take a bath or shower. Managing pain, stiffness, and swelling ??? If directed, put ice on the injured area. To do this: ??? If you have a removable air cast, remove it as told by your health care provider. ??? Put ice in a plastic bag. ??? Place a towel between your skin and the bag. ??? Leave the ice on for 20 minutes, 2???3 times a day. ??? Move your toes often to reduce stiffness and swelling. ??? Raise (elevate) your foot above the level of your heart while you are sitting or lying down. Activity ??? Gradually return to your normal activities as told by your health care provider. Ask your health care provider what activities are safe for you. ??? Do not do activities that cause pain. ??? Consider doing low-impact exercises, like cycling or swimming. ??? Ask your health care provider when it is safe to drive if you have an air cast on your foot. ??? If physical therapy was prescribed, do exercises as told by your health care provider or physical therapist. General instructions ??? If directed, wrap your foot with an elastic bandage or other wrap. This can help to keep your tendon from moving too much while it heals. Your health care provider will show you how to wrap your foot correctly. ??? Wear supportive shoes or heel lifts only as told by your health care provider. ??? Take yxdc-bro-fzbetwh and prescription medicines only as told by your health care provider. ??? Keep all follow-up visits as told by your health care provider. This is important. Contact a health care provider if you: ??? Have symptoms that get worse. ??? Have pain that does not get better with medicine. ??? Develop new, unexplained symptoms. ??? Develop warmth and swelling in your foot. ??? Have a fever. Get help right away if you: ??? Have a sudden popping sound or sensation in your Achilles tendon followed by severe pain. ??? Cannot move your toes or foot. ??? Cannot put any weight on your foot. ??? Your foot or toes become numb and look white or blue even after loosening your bandage or air cast. Summary ??? Achilles tendinitis is inflammation of the tough, cord-like band that attaches the lower leg muscles to the heel bone (Achilles tendon). ??? This condition is usually caused by overusing the tendon and the ankle joint. It can also be caused by arthritis or normal aging. ??? The most common symptoms of this condition include pain, swelling, or stiffness in the Achillestendon or in the back of the leg. ??? This condition is usually treated by decreasing or stopping activities that caused the tendinitis, icing the injured area, taking NSAIDs, and doing physical therapy. This information is not intended to replace advice given to you by your health care provider. Make sure you discuss any questions you have with your health care provider. Document Revised: 01/28/2020 Document Reviewed: 01/28/2020 [employer] Patient Education ?? 2021 [employer] Follow Up Care 03/12/2023 12:35:47 With:Primary Care Physician Address: When:3 to 5 days only if needed Physician Emergency department Note * Josie Dumont MD: PERFORM Event Display: ED Note Physician Authored Date: [id number] BOYD CORTES :1995 Age:27 years Sex:Female Visit Date:03/12/2023 Primary Care Physician: Sadia Warner MD Basic Information Time Seen: Josie Dumont MD / 03/12/2023 12:36 Chief Complaint 2 weeks of LLE pain with intermittent numbness from knee down to foot, pt denies any MISSY. Reports heat/cold/ over the counter pain meds without relief. History Of Present Illness: This is a 27 year old who presents to the ED c/o Lt knee and ankle pain in the past few weeks. Pt denies trauma. She reports pain in the back of the knee, and pain at the rickie's tendon. Pain is worse on walking or putting pressure on the leg. She feels that she sometimes has some associated numbness in the area. No weakness. Pain is improved with rest. No le swelling. No recent travel or prolonged immobilization. No fever/chills, no n/v/c/d.? Physical exam: ?? General: A&Ox3, Calm, no apparent distress, well developed, pleasant and cooperative ?? HEENT: Head ATNC. Eyes: MATILDA. Extraocular Mobility: intact and symmetrical. Conjunctiva: non-injected, anicteric, no discharge.? Extremities: LLE with no deformity, no bruising, no cyanosis, no redness, no opening in the skin.?There is ttp over the??insertion??site of the rickie's tendon at the posterior ankle??, there is from at the ankle. There is also??mild ttp over the posterior knee with from at the knee. No ttp or swelling of the calf. There is from at the knee, no ttp over the anterior, medial or lateral part. Sensation in the entire leg is normal. 2+ dp and pt. ?? Skin: no rash, no lesions, no bruising? Neuro: normal tone, normal strength in all 3 other extremities, sensation intact ? MDM Thorough chart review performed Nursing triage note reviewed Triage vitals reviewed Pt wll and non toxic appearing?? Her presentation is s/f tendinopathy or other msk process Clinically this is not consistent with DVT or other vascular etiology ?? Plan: Analgesia, XR ?? XR (my read) negative for acute fracture/dislocation. There is evidence of fragmentation at the tibial tuberosity. ?? Discussed findings with patient. 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 ?? Her presentation continues to be c/w tendinopathy of the achilles's tendon and what appears to be popliteus tendinopathy. She goes to the gym 3 times a week, otherwise does not over exercise. ?? I have recommended Tylenol, Ibuprofen, ice, elevation, and reevaluation with primary care in the next week ?? Discharge instructions and return precautions discussed, all questions answered. Physical Exam Vitals & Measurements T:??36.6?C ??(Temporal Artery)?? HR:??83??(Peripheral)?? RR:??16?? BP:??118/71?? SpO2:??99%?? HT:??165.000??cm?? WT:??72.50??kg??(Estimated)?? Pain Score:??8?? O2 Therapy:??Room air?? Procedure No Qualifying Data Assessment/Plan 1.??Tendinopathy??M67.90 Ordered: Discharge Patient, 03/12/23 14:12:00 EDT, Constant Indicator ?? 2.??Juan Ramon-Schlatter's disease??M92.529 Ordered: Discharge Patient, 03/12/23 14:12:00 EDT, Constant Indicator ?? Patient Education Popliteus Tendinitis Achilles Tendinitis Follow Up With When Contact Information Primary Care Physician Within 3 to 5 days, only if needed Additional Instructions: Medication Reconciliation Unchanged albuterol (Albuterol (Eqv-ProAir HFA)) ?? fluconazole Problem List/Past Medical History Ongoing No qualifying data Historical No qualifying data Medication Administration Given acetaminophen, 650 mg, Oral ibuprofen, 400 mg, Oral Allergies Bees/Stinging Insects Dust penicillin Social History Electronic Cigarette/Vaping Electronic Cigarette Use: Never. Tobacco Never tobacco user Tobacco Use:. Electronically Signed on 03/12/23 03:06 PM Josie Dumont MD Emergency department Discharge instructions * Josie Dumont MD: PERFORM Event Display: ED Discharge Information Authored Date: [id number] BOYD CORTES :1995 Age:27 years Sex:Female Visit Date:03/12/2023 Primary Care Physician: Sadia Warner MD Discharge Instructions We would like to thank you for allowing us to assist you with your healthcare needs. The following includes patient education materials and information regarding your injury/illness. Diagnosis from Today's Visit Tendinopathy Juan Ramon-Schlatter's disease Discharge Vitals Temperature??(Temporal Artery) 97.9 ??F (36.6 ??C) Heart Rate??(Peripheral) 83 Respiratory Rate?? 16 Blood Pressure?? 118/71?? Height?? 64.96 in (165.000 cm) Weight??(Estimated) 159.86 lb (72.50 kg) Allergies Bees/Stinging Insects Dust penicillin What to Do Next Instructions from Your Care Team Please??continue Tylenol and ibuprofen, elevate your leg??and use ice on the areas, follow-up with your primary care provider??for further evaluation??of tendinitis??and for final read of your x-rays.?? Please return to the emergency department for any new or worsening symptoms. You Need to Schedule the Following Appointments Follow Up with??Primary Care Physician When:??Within 3 to 5 days, only if needed You were treated today on an emergency basis; it may be hood to contact your primary care provider to notify them of your visit today. You may have been referred to your regular doctor or a specialist, please follow up as instructed. If your condition worsens or you can't get in to see the doctor, contact the Emergency Department. Medications What When Instructions Next Dose Unchanged albuterol (Albuterol (Eqv-ProAir HFA)) Unchanged fluconazole Education Materials Popliteus Tendinitis Popliteus tendinitis is a knee condition that causes pain in the back of the knee. It results from damage or irritation to the tough cord of tissue at the back of the knee (popliteus tendon). Popliteus tendinitis is common in runners. What are the causes? This condition is caused by stress on the popliteus tendon. This can result from: ? Training too hard. ? Running too much without proper training. ? Running downhill. What increases the risk? You are more likely to develop this condition if you: ? Are a runner. ? Have weak thigh muscles. ? Have flat feet. What are the signs or symptoms? The main symptom of this condition is pain in the back of the knee and pain in the outside of the knee. Running downhill may make the pain worse. Other symptoms of this condition include: ? Swelling behind the knee. ? Tenderness when pressing behind the knee. ? Cracking sound when the knee is moved. ? Pain when bending the knee from a straightened position. ? Pain when straightening the knee. How is this diagnosed? This condition may be diagnosed based on your symptoms, your medical history, and a physical exam. ? During your exam, your health care provider may: ? Check for tenderness behind your knee. ? Order an ultrasound or an MRI to check for swelling in your tendon. How is this treated? This condition may be treated by: ? Resting your knee until pain and swelling go down. ? Avoiding activities that make pain worse. ? Taking medicine to help with pain and swelling. ? Having medicine injected into your knee. ? Doing jfjxq-zi-phursi and strengthening exercises (physical therapy) when pain and swelling improve. ? Wearing a wrap that applies pressure (compression bandage) around your knee during activity. In some cases, surgery may be needed. Follow these instructions at home: Managing pain, stiffness, and swelling ? If directed, put ice on the area behind your knee. ? Put ice in a plastic bag. ? Place a towel between your skin and the bag. ? Leave the ice on for 20 minutes, 2???3 times a day. ? If directed, apply heat to the area behind your knee before you exercise. Use the heat source that your health care provider recommends, such as a moist heat pack or a heating pad. ? Place a towel between your skin and the heat source. ? Leave the heat on for 20???30 minutes. ? Remove the heat if your skin turns bright red. This is especially important if you are unable to feel pain, heat, or cold. You may have a greater risk of getting burned. ? Move your toes often to reduce stiffness and swelling. ? Raise (elevate) your knee above the level of your heart while you are sitting or lying down. Activity ? Return to your normal activities as told by your health care provider. Ask your health care provider what activities are safe for you. ? Do exercises as told by your health care provider. ? Wear a compression wrap when walking or running as told by your health care provider. General instructions ? Take mvyt-nbd-wndsbhb and prescription medicines only as told by your health care provider. ? Do not use any tobacco products, including cigarettes, e-cigarettes, or chewing tobacco. These can delay healing. If you need help quitting, ask your health care provider. ? Keep all follow-up visits as told by your health care provider. This is important. How is this prevented? Warm up and stretch before being active. ? Avoid running downhill. ? Cool down and stretch after being active. ? Give your body time to rest between periods of activity. ? Make sure to use equipment that fits you. ? Use a shoe insert (orthotic) if you have flat feet. This helps to support the arch of your foot. Orthotics can be purchased from a store or can be custom-made by your health care provider. ? Do at least 150 minutes of moderate-intensity exercise each week, such as brisk walking or water aerobics. ? Maintain physical fitness, including: ? Strength. ? Flexibility. ? Cardiovascular fitness. ? Endurance. Contact a health care provider if: ? Your symptoms get worse. ? Your symptoms do not improve. Summary ? Popliteus tendinitis is a knee condition that causes pain in the back of your knee. ? This condition is common in runners. ? This condition is usually treated with rest, pain medicines, and physical therapy. In some cases, surgery may be needed. ? You may help prevent this condition if you warm up and stretch before activity, avoid running downhill, and cool down and stretch after activity. This information is not intended to replace advice given to you by your health care provider. Make sure you discuss any questions you have with your health care provider. Document Revised: 01/04/2020 Document Reviewed: 07/18/2019 [employer] Patient Education ?? 202 [employer] Achilles Tendinitis Achilles tendinitis is inflammation of the tough, cord-like band that attaches the lower leg muscles to the heel bone (Achilles tendon). This is usually caused by overusing the tendon and the ankle joint. Achilles tendinitis usually gets better over time with treatment and caring for yourself at home. It can take weeks or months to heal completely. What are the causes? This condition may be caused by: ? A sudden increase in exercise or activity, such as running. ? Doing the same exercises or activities, such as jumping, over and over. ? Not warming up calf muscles before exercising. ? Exercising in shoes that are worn out or not made for exercise. ? Having arthritis or a bone growth (spur) on the back of the heel bone. This can rub against the tendon and hurt it. ? Age-related wear and tear. Tendons become less flexible with age and are more likely to be injured. What are the signs or symptoms? Common symptoms of this condition include: ? Pain in the Achilles tendon or in the back of the leg, just above the heel. The pain usually gets worse with exercise. ? Stiffness or soreness in the back of the leg, especially in the morning. ? Swelling of the skin over the Achilles tendon. ? Thickening of the tendon. ? Trouble standing on tiptoe. How is this diagnosed? This condition is diagnosed based on your symptoms and a physical exam. You may have tests, including: ? X-rays. ? MRI. How is this treated? The goal of treatment is to relieve symptoms and help your injury heal. Treatment may include: ? Decreasing or stopping activities that caused the tendinitis. This may mean switching to low-impactexercises like biking or swimming. ? Icing the injured area. ? Doing physical therapy, including strengthening and stretching exercises. ? Taking NSAIDs, such as ibuprofen, to help relieve pain and swelling. ? Using supportive shoes, wraps, heel lifts, or a walking boot (air cast). ? Having surgery. This may be done if your symptoms do not improve after other treatments. ? Using high-energy shock wave impulses to stimulate the healing process (extracorporeal shock wave therapy). This is rare. ? Having an injection of medicines that help relieve inflammation (corticosteroids). This is rare. Follow these instructions at home: If you have an air cast: ? Wear the air cast as told by your health care provider. Remove it only as told by your health care provider. ? Loosen it if your toes tingle, become numb, or turn cold and blue. ? Keep it clean. ? If the air cast is not waterproof: ? Do not let it get wet. ? Cover it with a watertight covering when you take a bath or shower. Managing pain, stiffness, and swelling ? If directed, put ice on the injured area. To do this: ? If you have a removable air cast, remove it as told by your health care provider. ? Put ice in a plastic bag. ? Place a towel between your skin and the bag. ? Leave the ice on for 20 minutes, 2???3 times a day. ? Move your toes often to reduce stiffness and swelling. ? Raise (elevate) your foot above the level of your heart while you are sitting or lying down. Activity ? Gradually return to your normal activities as told by your health care provider. Ask your health care provider what activities are safe for you. ? Do not do activities that cause pain. ? Consider doing low-impact exercises, like cycling or swimming. ? Ask your health care provider when it is safe to drive if you have an air cast on your foot. ? If physical therapy was prescribed, do exercises as told by your health care provider or physical therapist. General instructions ? If directed, wrap your foot with an elastic bandage or other wrap. This can help to keep your tendon from moving too much while it heals. Your health care provider will show you how to wrap your footcorrectly. ? Wear supportive shoes or heel lifts only as told by your health care provider. ? Take ppea-nlm-tfdhhjj and prescription medicines only as told by your health care provider. ? Keep all follow-up visits as told by your health care provider. This is important. Contact a health care provider if you: ? Have symptoms that get worse. ? Have pain that does not get better with medicine. ? Develop new, unexplained symptoms. ? Develop warmth and swelling in your foot. ? Have a fever. Get help right away if you: ? Have a sudden popping sound or sensation in your Achilles tendon followed by severe pain. ? Cannot move your toes or foot. ? Cannot put any weight on your foot. ? Your foot or toes become numb and look white or blue even after loosening your bandage or air cast. Summary ? Achilles tendinitis is inflammation of the tough, cord-like band that attaches the lower leg muscles to the heel bone (Achilles tendon). ? This condition is usually caused by overusing the tendon and the ankle joint. It can also be causedby arthritis or normal aging. ? The most common symptoms of this condition include pain, swelling, or stiffness in the Achilles tendon or in the back of the leg. ? This condition is usually treated by decreasing or stopping activities that caused the tendinitis, icing the injured area, taking NSAIDs, and doing physical therapy. This information is not intended to replace advice given to you by your health care provider. Make sure you discuss any questions you have with your health care provider. Document Revised: 01/28/2020 Document Reviewed: 01/28/2020 [employer] Patient Education ?? 2021 [employer] Tests Performed Medications and Immunizations Administered Given acetaminophen, 650 mg, Oral ibuprofen, 400 mg, Oral Patient/Broom Machine Operator Signature Patient Name:BOYD CORTES I have received this information and my questions have been answered. Patient/Broom Machine Operator Name: Patient/Broom Machine Operator Signature: Relationship to Patient: Witness Name/Signature: Date: Electronically Signed on: 03/12/2023 14:12 EDTSigned by:[facility] Emergency department Note * Yanique Weiss M: PERFORM Event Display: ED Notes Authored Date: [id number] Patient Care team information Care Team Personnel Name: Sadia Warner MD Position: No Access Member Role: Primary Care Physician Address: Address: [address] [address] Name: Josie Dumont MD Position: Physician Member Role: Admitting Physician Address: Address: [address] [place] [phone] [place] Name: Dea Red Position: Nurse Member Role: ED Nurse Care Team Related Persons Name: STEPHANIE DOTY
--- NOTE | 2024-03-27 13:17 | DI.RAD_ITS ---
Exam(s) XR FINGER RT RING EXAM: XR FINGER RT RING CLINICAL HISTORY: FALGUNI FINGER RT HAND,M20.011. TECHNIQUE: 2D digital imaging was performed. COMPARISON: No exams were available for comparison FINDINGS: Three views. No evidence of fracture or dislocation. No osseous lesions nor erosions. No radiopaque foreign bodi es. Additional dedicated images of the 4th-ring finger reveal no significant osseous findings. IMPRESSION: No acute osseous findings. DATA REPOSITORY: RADIATION DOSE DELIVERED:
== END ==
PROVIDERS: PCP Family Medicine; Visit Provider Nurse Practitioner Family
DX: M20.011 Mallet finger of right finger(s) (principal)
CPT/HCPCS: 73140

== ENCOUNTER 2024-10-08 17:25 | Outpatient (CLI) | payer OTHER, SELFPAY ==
--- NOTE | 2024-10-08 15:00 | DI.RAD_ITS ---
Exam(s) XR CHEST 2V PA LATERAL EXAM: XR CHEST 2V PA LATERAL CLINICAL HISTORY: Cough, R sided rhonchi, URI, J06.9 TECHNIQUE: 2D digital imaging was performed. Two views. COMPARISON: CR XR CHEST 2V PA LATERAL from 06/20/2023 FINDINGS: HEART: Normal size. Aorta: Not dilated. PULMONARY VASCULATURE: Normal. MEDIASTINUM: Unremarkable. LUNGS: No focal area of consolidation. PLEURAL SPACE: No pleural effusion or pneumothorax. BONE:Unremarkable for age. SOFT TISSUES: Unremarkable. IMPRESSION: No acute abnormality. DATA REPOSITORY: RADIATION DOSE DELIVERED:
== END 2024-10-08 17:45 ==
LOC: DI 17:27
PROVIDERS: PCP Nurse Practitioner Family; Visit Provider Family Medicine
DX: J06.9 Acute upper respiratory infection, unspecified (principal)
CPT/HCPCS: 71046

== ENCOUNTER 2024-10-16 11:48 | Outpatient (REF) | payer OTHER, SELFPAY ==
--- NOTE | 2024-10-16 11:30 | PAPFT_PTH ---
PATIENT: Camille Arroyo LOC: [facility] U#:[id number] AGE/SX: 29/F ROOM: RE10/16/[address]: Izzy Holguin : 1995 BED: DIS: 10/16/2024 SPEC #: [id number] RECD: 10/16/24 12:58 STATUS: BRANNON REDenisse #: [id number] COOPER: 10/16/24 11:[address]: Izyz Holguin DEPT: ON LICENSE OF [facility] Cytology RECD BY: Deyanira Lindo ENTERED: 10/16/24 12:58 SP TYPE: PAPFT OT DR: Sarah Norwood, AZAR Tissues: 1 - CX/ENDOCX FOR PAP SMEARS Procedures: PAP THIN PREP/[facility] Screening Comments: [id number]
== END 2024-10-16 11:49 | disposition home or self-care (01) ==
LOC: LBN 11:48
PROVIDERS: PCP Nurse Practitioner Family; Visit Provider Obstetrics & Gynecology Gynecology
DX: Z12.4 Encounter for screening for malignant neoplasm of cervix (principal)
CPT/HCPCS: 88142

== ENCOUNTER 2024-10-17 02:02 | Outpatient (CLI) | payer OTHER, SELFPAY ==
[2024-10-17 09:08] LABS: HCT 43.8 % (36.0-46.0); HGB 13.2 g/dL (11.2-15.7); MCH 21.4 pg (27.0-33.0); MCHC 30.1 % (32.0-36.0); MCV 71 fL (80-95); MPV 8.8 fL (8.0-11.0); RDW 14.3 % (11.7-14.6); RDW-SD 35.1 fL; WBC 10.11 10^3/uL (4.4-10.8)
[2024-10-17 09:16] LABS: Glucose 99 mg/dL (74-106)
[2024-10-17 09:35] LABS: RBC 6.17 10^6/uL (3.93-5.22)
[2024-10-17 09:36] LABS: Platelet Count 419 10^3/uL (130-400)
[2024-10-17 09:37] LABS: Calculated LDL 151 mg/dL (<100); Cholesterol 228 mg/dL (<200); HDL Cholesterol 36 mg/dL (40-60); TSH (W/Ref FT4) 1.11 uIU/mL (0.36-3.74); Triglyceride 206 mg/dL (<150)
== END 2024-10-17 02:03 | disposition home or self-care (01) ==
LOC: LBO 02:05
PROVIDERS: PCP Nurse Practitioner Family; Visit Provider Nurse Practitioner Family
DX: R73.03 Prediabetes (principal); R63.5 Abnormal weight gain; D56.9 Thalassemia, unspecified; Z00.00 Encounter for general adult medical examination without abnormal findings
CPT/HCPCS: 36415; 80061; 82947; 85027; 84443

== ENCOUNTER 2025-01-16 03:32 | Outpatient (CLI) | payer OTHER, SELFPAY ==
[2025-01-16 10:44] LABS: Iron 55 ug/dL (50-170); Total Iron Binding Capacity 281 ug/dL (250-450)
[2025-01-16 11:00] LABS: Ferritin 118 ng/mL (8-252)
[2025-01-17 10:07] LABS: Transferrin 218 mg/dL (201-352)
[2025-01-21 11:04] LABS: ALT 22 U/L (7-45); ActiTest Grade A0; ActiTest Interpretation no activity; ActiTest Score 0.06; Alpha-2-Macroglobulin 138 mg/dL (100 - 280); Apoliprotein A1 97 mg/dL (>=140); Bilirubin, Total <0.2 mg/dL (0.0 - 1.2); FibroTest Interpretation no fibrosis; FibroTest Score 0.04; FibroTest Stage F0; GGT 18 U/L (5 - 36); Haptoglobin 110 mg/dL (30 - 200)
[2025-01-21 17:17] LABS: Apolipoprotein B, Serum 137 mg/dL (48-124); Beta VLDL Cholesterol Not Detected mg/dL (<15); Beta VLDL Triglycerides Not Detected mg/dL (<15); Cholesterol, Total, CDC 249 mg/dL; Chylomicron Cholesterol Not Detected; Chylomicron Triglycerides Not Detected; HDL Cholesterol, CDC 28 mg/dL (>=50); LDL Cholesterol 192 mg/dL; LDL Triglycerides 55 mg/dL (<=50); Lp(a) Cholesterol <5 mg/dL (<5); LpX Not detected; Triglycerides, CDC 179 mg/dL; VLDL Cholesterol 29 mg/dL (<30); VLDL Triglycerides 111 mg/dL (<120)
== END 2025-01-16 03:33 | disposition home or self-care (01) ==
LOC: LBO 03:32
PROVIDERS: PCP Nurse Practitioner Family; Visit Provider Nurse Practitioner Family
DX: D56.9 Thalassemia, unspecified (principal); E78.00 Pure hypercholesterolemia, unspecified
CPT/HCPCS: 36415; 80061; 81596; 82172; 82664; 82728; 83540; 83550; 84466

== ENCOUNTER 2025-06-17 07:32 | Outpatient (CLI) | payer OTHER, SELFPAY ==
[2025-06-20 16:04] LABS: Apolipoprotein B, Serum 131 mg/dL (48-124); Beta VLDL Cholesterol Not Detected mg/dL (<15); Beta VLDL Triglycerides Not Detected mg/dL (<15); Cholesterol, Total, CDC 240 mg/dL; Chylomicron Cholesterol 4 mg/dL; Chylomicron Triglycerides 85 mg/dL; HDL Cholesterol, CDC 29 mg/dL (>=50); LpX Not detected; Triglycerides, CDC 264 mg/dL; VLDL Triglycerides 123 mg/dL (<120)
== END 2025-06-17 07:33 | disposition home or self-care (01) ==
LOC: LBO 07:32
PROVIDERS: Absent Provider Nurse Practitioner Family; PCP Nurse Practitioner Family; Referring Provider Nurse Practitioner Family; Visit Provider Nurse Practitioner Family
DX: E78.00 Pure hypercholesterolemia, unspecified (principal)
CPT/HCPCS: 36415; 80061; 82172; 82664